=== PATIENT | male | born 1955 | race Two or more races ===

== ENCOUNTER 2019-10-28 17:55 | Inpatient (IN) | payer MEDICAID ==
[~2019-10-28] VITALS: Ht 170.2 cm; Wt 53.5 kg
--- NOTE | 2019-10-28 18:22 | Emergency Room Report ---
History of Present Illness General Chief Complaint: Back Pain-No Injury Source: EMS Present Illness HPI 64-year-old male presents to the emergency department with a complaint of generalized weakness. He also reports intermittent cough for several days. He denies fevers or chills. Patient states he has not seen a primary care doctor in over 5 months. He denies significant past medical history. He reports 4 out of 10 severity bilateral leg aching pains x2 months. Patient denies trauma or fall. He denies back pain. He denies shortness of breath or chest pain. He denies palpitations or dizziness. Allergies: Coded Allergies: No Known Allergies (Unverified , 10/28/19) COVID-19 Screening Contact w/high risk pt: No Experienced COVID-19 symptoms?: No COVID-19 Testing performed CLE[employer]ER [employer]: No Patient History Past Medical History: see triage record Past Surgical History: none Pertinent Family History: none Reviewed Nursing Documentation: PMH: Agreed; PSxH: Agreed Nursing Documentation-PMH Past Medical History: No Stated History Review of Systems All Other Systems: negative except mentioned in HPI Physical Exam Vital Signs Date Time Temp Pulse Resp B/P (MAP) Pulse Ox O2 Delivery O2 Flow Rate FiO2 10/28/19 17:47 87.3 87 18 155/78 (103) 100 Room Air Sp02 EP Interpretation: reviewed, normal General Appearance: alert, GCS 15, non-toxic, mild distress Head: normocephalic, atraumatic Eyes: bilateral eye normal inspection, bilateral eye PERRL ENT: hearing grossly normal, normal pharynx, normal voice Neck: full range of motion Respiratory: speaking full sentences, wheezing - expiratory Cardiovascular #1: regular rate, rhythm, no edema, normal capillary refill Gastrointestinal: normal bowel sounds, non tender, soft Musculoskeletal: back normal, normal range of motion, gait/station normal, non- tender Neurologic: alert, motor strength/tone normal, oriented x3, sensory intact, responsive, speech normal, normal gait Psychiatric: judgement/insight normal Skin: no rash, normal color Lymphatic: no adenopathy Medical Decision Making PA Attestation Dr. Kunz is my supervising Physician whom patient management has been discussed with. Diagnostic Impression: Primary Impression: Acute respiratory disease due to COVID-19 virus Additional Impression: Hyperglycemia ER Course 64-year-old male presents to the emergency department with a complaint of generalized weakness. He also reports intermittent cough for several days. He denies fevers or chills. Patient states he has not seen a primary care doctor in over 5 months. He denies significant past medical history. He reports 4 out of 10 severity bilateral leg aching pains x2 months. Patient denies trauma or fall. He denies back pain. He denies shortness of breath or chest pain. He denies palpitations or dizziness. Ddx considered but are not limited to : COVID-19, MS, MG, guilan barre, CO, drug intoxication, hypovolemia, infection, rhabdomyolysis, ETOH, CVA/TIA, NMS, CHF, Seizures, Cardiac outflow obstruction, QT-prolongation, Brugada, or Anemia just to name a few. Vital signs: are WNL, pt. is afebrile Repeat VS after auscultation of lungs. O2 sat was : 83%. H&PE are most consistent with pt. with decreased breath sounds and expiratory wheezes bilaterally. Pt. has shallow breaths. ORDERS: - CBC: WNL -CMP: glucose of 303 -PT/PTT: WNL -D-Dimer: elevated 1.5 -Troponin: WNL -CRP: 26.8 -ESR: 30 -Lactic Acid: Pending -Blood Cultures: Pending -UA: Pending -EK BPM NSR -BNP: mild elevation 177 -CXR: scattered patchy infiltrates bilaterally. -Rapid COVID-19: POSITIVE ED INTERVENTIONS: - 6L NS oxygen --Lovenox 60mg SubQ -- Levaquin 750mg IV --Decadron 10mg IV DISPOSITION: at this time pt. will be admitted to Dr. Guy for COVID related respiratory distress. Dr. Guy agreed to admit the pt. and to continue pt. care management. Labs Test 10/28/19 18:55 White Blood Count 8.8 K/UL (4.8-10.8) Red Blood Count 5.42 M/UL (4.70-6.10) Hemoglobin 15.2 G/DL (14.2-18.0) Hematocrit 46.0 % (42.0-52.0) Mean Corpuscular Volume 85 FL (80-99) Mean Corpuscular Hemoglobin 28.1 PG (27.0-31.0) Mean Corpuscular Hemoglobin Concent 33.1 G/DL (32.0-36.0) Red Cell Distribution Width 11.4 % (11.6-14.8) Platelet Count 236 K/UL (150-450) Mean Platelet Volume 7.8 FL (6.5-10.1) Neutrophils (%) (Auto) 87.7 % (45.0-75.0) Lymphocytes (%) (Auto) 6.6 % (20.0-45.0) Monocytes (%) (Auto) 5.2 % (1.0-10.0) Eosinophils (%) (Auto) 0.4 % (0.0-3.0) Basophils (%) (Auto) 0.1 % (0.0-2.0) Erythrocyte Sedimentation Rate 30 MM/HR (0-20) Prothrombin Time 10.8 SEC (9.30-11.50) Prothromb Time International Ratio 1.0 (0.9-1.1) Activated Partial Thromboplast Time 26 SEC (23-33) D-Dimer 1.11 mg/L FEU (0.00-0.49) Sodium Level 133 MMOL/L (136-145) Potassium Level 4.3 MMOL/L (3.5-5.1) Chloride Level 96 MMOL/L (98-107) Carbon Dioxide Level 26 MMOL/L (21-32) Anion Gap 11 mmol/L (5-15) Blood Urea Nitrogen 17 mg/dL (7-18) Creatinine 0.9 MG/DL (0.55-1.30) Estimat Glomerular Filtration Rate > 60 mL/min (>60) Glucose Level 303 MG/DL (74-106) Calcium Level 8.0 MG/DL (8.5-10.1) Total Bilirubin 0.7 MG/DL (0.2-1.0) Aspartate Amino Transf (AST/SGOT) 33 U/L (15-37) Alanine Aminotransferase (ALT/SGPT) 34 U/L (12-78) Alkaline Phosphatase 91 U/L (46-116) Troponin I 0.000 ng/mL (0.000-0.056) C-Reactive Protein, Quantitative 26.8 mg/dL (0.00-0.90) Pro-B-Type Natriuretic Peptide 177 pg/mL (0-125) Total Protein 7.9 G/DL (6.4-8.2) Albumin 2.5 G/DL (3.4-5.0) Globulin 5.4 g/dL Albumin/Globulin Ratio 0.5 (1.0-2.7) EKG Diagnostic Results EP Interpretation: Dr. Kunz Rate: normal - 80 bpm Rhythm: NSR ST Segments: no acute changes ASA given to the pt in ED: No PA Scribe Text This Interpretation was scribed by ARIADNE Nath. Chest X-Ray Diagnostic Results Chest X-Ray Diagnostic Results : Chest X-Ray Ordered: Yes # of Views/Limited/Complete: 1 View Indication: Shortness of Breath EP Interpretation: Yes ARIADNE Xray: Interpretation reviewed, by supervising MD, and agrees with findings. Interpretation: no effusion, no pneumothorax, other - Covid like patchy infiltrates Impression: Other - abnormal: suspect COVID-19 Electronically Signed by: Khadra Nath PA-C Last Vital Signs Date Time Temp Pulse Resp B/P (MAP) Pulse Ox O2 Delivery O2 Flow Rate FiO2 10/28/19 17:47 87.3 87 18 155/78 (103) 100 Room Air Disposition: ADMITTED INPATIENT Condition: Serious Khadra Nath Oct 28, 2019 18:22
[2019-10-28 18:40] VITALS: BP 155/78
--- NOTE | 2019-10-28 18:40 | NUR ---
ED Nurse Note: Patient MARYANNE from home c/o 8/10 lower back pain and bilateral foot pain x 3 days. Oral temp 99.3. Patient slightly tachypneic at 28 breaths per minute, breathing non-labored. O2 sat 78% on room air. Patient placed on 6 L NC per verbal order, with O2 sat increase to 94%, Khadra RON aware. 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 20 g IV started in left AC, blood collected and sent to lab, along with rapid covid swab. Patient AxO x 4, no s/s of acute distress.
--- NOTE | 2019-10-28 19:15 | NUR ---
ED Nurse Note: Handoff report given to Didi PRASAD. Patient on 6L NC, O2 sat 94%, breathing even and unlabored. Endorsed plan of care.
[2019-10-28 19:20] LABS: BASOPHILS % (AUTO) 0.1 % (0.0-2.0); EOSINOPHILS % (AUTO) 0.4 % (0.0-3.0); HEMOGLOBIN 15.2 G/DL (14.2-18.0); LYMPHOCYTES % (AUTO) 6.6 % (20.0-45.0); MEAN CORPUSCULAR VOLUME 85 FL (80-99); MONOCYTES % (AUTO) 5.2 % (1.0-10.0); NEUTROPHILS % (AUTO) 87.7 % (45.0-75.0); PLATELET COUNT 236 K/UL (150-450); RED BLOOD COUNT 5.42 M/UL (4.70-6.10); RED CELL DISTRIBUTION WIDTH 11.4 % (11.6-14.8); WHITE BLOOD COUNT 8.8 K/UL (4.8-10.8)
[2019-10-28 19:31] LABS: ANION GAP 11 mmol/L (5-15); BLOOD UREA NITROGEN 17 mg/dL (7-18); CARBON DIOXIDE 26 MMOL/L (21-32); CHLORIDE 96 MMOL/L (98-107); CREATININE 0.9 MG/DL (0.55-1.30); POTASSIUM 4.3 MMOL/L (3.5-5.1); SODIUM 133 MMOL/L (136-145)
[2019-10-28 19:36] LABS: ALANINE AMINOTRANSFERASE 34 U/L (12-78); ALBUMIN 2.5 G/DL (3.4-5.0); ALBUMIN/GLOBULIN RATIO 0.5 (1.0-2.7); ALKALINE PHOSPHATASE 91 U/L (46-116); ASPARTATE AMINO TRANSFERASE 33 U/L (15-37); BILIRUBIN,TOTAL 0.7 MG/DL (0.2-1.0)
[2019-10-28] MEDS ORDERED: dexAMETHasone 10mg/ml Inj IV ONE (20:00)
[2019-10-28] MEDS ORDERED: Enoxaparin 60mg Inj SUBQ ONE (20:00)
[2019-10-28 21:00] VITALS: BP 147/79
--- NOTE | 2019-10-28 21:00 | NUR ---
ED Nurse Note: Pt resting in bed, pt offered food and drink, tolerated well, will continue to monitor
[2019-10-28 21:29] LABS: CREATINE KINASE 72 U/L (26-308)
[2019-10-28 23:00] VITALS: BP 138/72
--- NOTE | 2019-10-28 23:50 | NUR ---
TRANSFER TO FLOOR: Patient transferred to as ordered, per Dr grewal. Report given to OSMAR Anguiano . Belongings and medications given to . Family and or S/O informed of transfer.
[2019-10-29] VITALS: BP 136/77
--- NOTE | 2019-10-29 | NUR ---
NURSE NOTES: Pt arrived via gurney from ED. Got report from Didi PRASAD. Pt in stable condition. Initial assessment done. VSS. Pt denies any pain. Denies any n/v or SOB. Pt is here for Hypoxia/Covid PUI. Pt had rapid swab in ED resulted positive awaiting nasopharyx results. Pt is fully oriented Brazilian speaking. Pt is ambulatory. Pt on 6L NC sating 95%. No skin issues noted. Pt is continent uses urinal. playground monitor placed on pt running NSR. Pt has L AC 20g saline locked and patent. Pt resting in bed comfortably. Bed in low and locked position, call light within reach, bedside table within reach. Continue to monitor. Orders given by Dr. Damon. Orders placed.
[2019-10-29 04:00] VITALS: BP 139/73
[2019-10-29] MEDS: NovoLOG Insulin Flexpen SUBQ SCH ×4 (06:57→17:55)
[2019-10-29 07:17] LABS: HEMATOCRIT 46.4 % (42.0-52.0); HEMOGLOBIN 15.1 G/DL (14.2-18.0); MEAN CORPUSCULAR VOLUME 86 FL (80-99); PLATELET COUNT 249 K/UL (150-450); RED BLOOD COUNT 5.37 M/UL (4.70-6.10); RED CELL DISTRIBUTION WIDTH 11.2 % (11.6-14.8); WHITE BLOOD COUNT 5.5 K/UL (4.8-10.8)
--- NOTE | 2019-10-29 07:20 | NUR ---
HAND-OFF: Report given to Nathalie PRASAD.
--- NOTE | 2019-10-29 07:30 | NUR ---
NURSE NOTES: pt in bed awake and alert x4. Pt on cardiac nurse specialist no signs of cardiac distress on 6L O2. Pt educated on keeping Nc on, to help with breathing. Pt understood and verbalized understanding. Bed locked and in lowest position. Call light within reach, bed side rails up for safety. will continue to monitor pt.
[2019-10-29 07:35] LABS: CHOLESTEROL 147 MG/DL (< 200); HDL CHOLESTEROL 28 MG/DL (40-60); TRIGLYCERIDES 129 MG/DL (30-150)
[2019-10-29 07:36] LABS: PHOSPHORUS 4.4 MG/DL (2.5-4.9)
[2019-10-29 07:55] LABS: ALANINE AMINOTRANSFERASE 40 U/L (12-78); ALBUMIN 2.1 G/DL (3.4-5.0); ALBUMIN/GLOBULIN RATIO 0.4 (1.0-2.7); ALKALINE PHOSPHATASE 85 U/L (46-116); ANION GAP 12 mmol/L (5-15); ASPARTATE AMINO TRANSFERASE 41 U/L (15-37); BILIRUBIN,TOTAL 0.6 MG/DL (0.2-1.0); BLOOD UREA NITROGEN 26 mg/dL (7-18); CALCIUM 8.3 MG/DL (8.5-10.1); CARBON DIOXIDE 24 MMOL/L (21-32); CHLORIDE 95 MMOL/L (98-107); CREATININE 0.8 MG/DL (0.55-1.30); POTASSIUM 4.6 MMOL/L (3.5-5.1); SODIUM 131 MMOL/L (136-145)
--- NOTE | 2019-10-29 08:00 | Consultation ---
DATE OF CONSULTATION: 10/29/2019 ENDOCRINOLOGY CONSULTATION CONSULTING PHYSICIAN: Aram Ochoa MD. REFERRING PHYSICIAN: Nesha Damon MD. REASON FOR CONSULTATION: Diabetes management. HISTORY OF PRESENT ILLNESS: Patient is a 64-year-old male brought in with complaints of generalized weakness, cough. No fever. No chills. Has not seen a primary care doctor for 5 months. No significant past medical history. Also has bilateral neck pain 4/10 without any trauma. Patient's rapid COVID test was positive in the emergency department. Admitted to the floor, started on treatment, and gave a dose of dexamethasone. Glucose was 300. Endocrinology was consulted. PAST MEDICAL HISTORY: Noncontributory. PAST SURGICAL HISTORY: None. FAMILY HISTORY: Noncontributory. SOCIAL HISTORY: No smoking, alcohol, or drug use. REVIEW OF SYSTEMS: As per HPI. LABORATORY DATA: WBC 8, hemoglobin 15, hematocrit 46, platelet count 336. Sodium is 133, potassium 4.2, chloride 96, bicarb 26, BUN 17, creatinine 0.9, glucose of 302, calcium of 8. PHYSICAL EXAMINATION: VITAL SIGNS: Blood pressure 139/73, heart rate 73, temperature 97.5, respiratory rate of 20. Exam was deferred due to COVID infection. DIAGNOSES: 1. Diabetes, out of control. 2. COVID infection. PLAN: 1. Start Levemir 18 units daily. 2. Start NovoLog 6 units before each meal. 3. NovoLog sliding scale before meals and at bedtime. 4. Further adjustment according to blood glucose values. 5. Check hemoglobin A1c. Thank you, Dr. Damon, for the courtesy of this consultation. Aram Ochoa M.D. DR: OSMAR/TITI JOB#: [id number] CC: LINDA
[2019-10-29 08:26] VITALS: BP 130/72
[2019-10-29] MEDS: Levemir Flexpen SUBQ SCH (10:25)
--- NOTE | 2019-10-29 10:27 | NUR ---
CASE MANAGEMENT:INITIAL REVIEW 64YR OLD MALE FROM HOME CC:BACK PAIN WITH NO INJURY SI: HYPOXIA . COVID-19 R/O 87.2 87 18 155/78 100% ON RA D-DIMER 1.11 NA+ 133 CL- 96 BUN 26 BG 303 CA+8.0 ALB 2.5 ESR 30 IS:IV LEVAQUIN X1 LOVENOX SQ X1 IV DECADRON X1 \: 2E TELE UNIT DCP:HOME WHEN STABLE PLAN: COVID-19 + CASE MANAGEMENT: REVIEW 10/29/19 SI: HYPOXIA . COVID-19 + 96.8 85 20 130/72 96% ON RA MG 2.9 LDH 491 NA+ 131 CL- 95 BUN 26 BG 404 CA+8.3 ALB 2.1 HDL CHOL 28 HA1C 10.9 IS:LEVEMIR SQ QS \: 2E TELE UNIT DCP:HOME WHEN STABLE
--- NOTE | 2019-10-29 11:00 | NUR ---
NURSE NOTES: checked blood sugar for pt before given levemir but after pt having breakfast [id number]. Pt received 18units of Levemir. Notified doctor Zoila not further orders were given. Continue insulin as schedule.
[2019-10-29 12:00] VITALS: BP 131/62
--- NOTE | 2019-10-29 14:32 | Cardiac Electrophysiology PN ---
Subjective Subjective [id number] Objective Last 24 Hour Vital Signs Date Time Temp Pulse Resp B/P (MAP) Pulse Ox O2 Delivery O2 Flow Rate FiO2 10/29/19 12:00 69 10/29/19 08:26 96.8 85 20 130/72 (91) 96 10/29/19 08:00 74 10/29/19 04:00 97.5 71 20 139/73 (95) 96 10/29/19 04:00 73 10/29/19 02:09 Nasal Cannula 6.0 10/29/19 00:41 Nasal Cannula 6.0 10/29/19 00:00 75 10/29/19 00:00 97.5 75 20 136/77 (96) 95 10/28/19 23:50 98.9 68 32 138/72 99 Nasal Cannula 6.0 10/28/19 23:00 98.9 68 32 138/72 99 Nasal Cannula 6.0 10/28/19 21:00 98.9 72 30 147/79 99 Nasal Cannula 6.0 10/28/19 18:40 99.3 76 18 155/78 94 Nasal Cannula 6.0 10/28/19 17:47 87.3 87 18 155/78 (103) 100 Room Air Intake and Output 10/28/19 10/29/19 19:00 07:00 Output Total 900 ml Balance -900 ml Output Urine Total 900 ml Laboratory Tests Test 10/28/19 18:55 10/28/19 20:30 10/28/19 22:30 10/29/19 06:14 White Blood Count 8.8 K/UL (4.8-10.8) 5.5 K/UL (4.8-10.8) Red Blood Count 5.42 M/UL (4.70-6.10) 5.37 M/UL (4.70-6.10) Hemoglobin 15.2 G/DL (14.2-18.0) 15.1 G/DL (14.2-18.0) Hematocrit 46.0 % (42.0-52.0) 46.4 % (42.0-52.0) Mean Corpuscular Volume 85 FL (80-99) 86 FL (80-99) Mean Corpuscular Hemoglobin 28.1 PG (27.0-31.0) 28.1 PG (27.0-31.0) Mean Corpuscular Hemoglobin Concent 33.1 G/DL (32.0-36.0) 32.6 G/DL (32.0-36.0) Red Cell Distribution Width 11.4 % (11.6-14.8) L 11.2 % (11.6-14.8) L Platelet Count 236 K/UL (150-450) 249 K/UL (150-450) Mean Platelet Volume 7.8 FL (6.5-10.1) 7.7 FL (6.5-10.1) Neutrophils (%) (Auto) 87.7 % (45.0-75.0) H % (45.0-75.0) Lymphocytes (%) (Auto) 6.6 % (20.0-45.0) L % (20.0-45.0) Monocytes (%) (Auto) 5.2 % (1.0-10.0) % (1.0-10.0) Eosinophils (%) (Auto) 0.4 % (0.0-3.0) % (0.0-3.0) Basophils (%) (Auto) 0.1 % (0.0-2.0) % (0.0-2.0) Erythrocyte Sedimentation Rate 30 MM/HR (0-20) H Prothrombin Time 10.8 SEC (9.30-11.50) Prothromb Time International Ratio 1.0 (0.9-1.1) Activated Partial Thromboplast Time 26 SEC (23-33) D-Dimer 1.11 mg/L FEU (0.00-0.49) H Sodium Level 133 MMOL/L (136-145) L 131 MMOL/L (136-145) L Potassium Level 4.3 MMOL/L (3.5-5.1) 4.6 MMOL/L (3.5-5.1) Chloride Level 96 MMOL/L (98-107) L 95 MMOL/L (98-107) L Carbon Dioxide Level 26 MMOL/L (21-32) 24 MMOL/L (21-32) Anion Gap 11 mmol/L (5-15) 12 mmol/L (5-15) Blood Urea Nitrogen 17 mg/dL (7-18) 26 mg/dL (7-18) H Creatinine 0.9 MG/DL (0.55-1.30) 0.8 MG/DL (0.55-1.30) Estimat Glomerular Filtration Rate > 60 mL/min (>60) > 60 mL/min (>60) Glucose Level 303 MG/DL (74-106) H 404 MG/DL (74-106) #H Calcium Level 8.0 MG/DL (8.5-10.1) L 8.3 MG/DL (8.5-10.1) L Total Bilirubin 0.7 MG/DL (0.2-1.0) 0.6 MG/DL (0.2-1.0) Aspartate Amino Transf (AST/SGOT) 33 U/L (15-37) 41 U/L (15-37) H Alanine Aminotransferase (ALT/SGPT) 34 U/L (12-78) 40 U/L (12-78) Alkaline Phosphatase 91 U/L (46-116) 85 U/L (46-116) Total Creatine Kinase 72 U/L (26-308) Troponin I 0.000 ng/mL (0.000-0.056) C-Reactive Protein, Quantitative 26.8 mg/dL (0.00-0.90) H Pro-B-Type Natriuretic Peptide 177 pg/mL (0-125) H Total Protein 7.9 G/DL (6.4-8.2) 7.6 G/DL (6.4-8.2) Albumin 2.5 G/DL (3.4-5.0) L 2.1 G/DL (3.4-5.0) L Globulin 5.4 g/dL 5.5 g/dL Albumin/Globulin Ratio 0.5 (1.0-2.7) L 0.4 (1.0-2.7) L Lactic Acid Level 2.20 mmol/L (0.4-2.0) H 1.90 mmol/L (0.66-2.22) Differential Total Cells Counted 100 Neutrophils % (Manual) 86 % (45-75) H Lymphocytes % (Manual) 11 % (20-45) L Monocytes % (Manual) 3 % (1-10) Eosinophils % (Manual) 0 % (0-3) Basophils % (Manual) 0 % (0-2) Band Neutrophils 0 % (0-8) Platelet Estimate Adequate Platelet Morphology Normal Red Blood Cell Morphology Normal Hemoglobin A1c 10.9 % (4.3-6.0) H Uric Acid 3.7 MG/DL (2.6-7.2) Phosphorus Level 4.4 MG/DL (2.5-4.9) Magnesium Level 2.9 MG/DL (1.8-2.4) H Lactate Dehydrogenase 491 U/L (81-234) H Triglycerides Level 129 MG/DL (30-150) Cholesterol Level 147 MG/DL (< 200) LDL Cholesterol 93 mg/dL (<100) HDL Cholesterol 28 MG/DL (40-60) L Cholesterol/HDL Ratio 5.3 (3.3-4.4) H Microbiology Date/Time Source Procedure Growth Status 10/28/19 19:15 Nasopharynx SARS-CoV-2 RdRp Gene Assay - Final Complete Mohsen Epps MD Oct 29, 2019 14:32
--- NOTE | 2019-10-29 14:42 | NUR ---
NURSE NOTES: Dr. Foreign Galarza spoke to pt about the benefit and side effect of of Remdesivir, pt verbalized understanding and has agreed to take medication.
--- NOTE | 2019-10-29 15:38 | Diagnostic Imaging Report ---
Indication: Chest pain Technique: One view of the chest Comparison: none Findings: Bilateral interstitial and airspace opacities are noted in a peribronchial vascular distribution. The heart size is normal. The pleural spaces are clear. Impression: Bilateral infiltrates as described. Likely secondary to pneumonia, possibly viral
[2019-10-29 16:00] VITALS: BP 118/68
[2019-10-29] MEDS ORDERED: Loading Dose:Remdesivir 200mg/NS 210ml IV SCH ×2 (17:00)
[2019-10-29] MEDS ORDERED: Remdesivir Fact Sheet MISC SCH (17:00)
[2019-10-29] MEDS: dexAMETHasone 10mg/ml Inj IV SCH (17:47)
--- NOTE | 2019-10-29 19:14 | Consultation ---
DATE OF CONSULTATION: 10/29/2019 INFECTIOUS DISEASES CONSULTATION CONSULTING PHYSICIAN: Stas Garcia MD PRIMARY ATTENDING PHYSICIAN: Nesha Damon MD REASON FOR CONSULTATION: COVID-19 disease. HISTORY OF PRESENT ILLNESS: This is a 64-year-old male admitted last night, complaining of generalized weakness for a couple of days. He had coughing that was dry and shortness of breath. He was hypoxemic and with O2 saturation of 87% at the time of admission, but had no fever. PAST MEDICAL HISTORY: Diabetes mellitus. He was on oral hypoglycemic agent. He has scalp congenital abnormality. ALLERGIES: No known drug allergies. MEDICATIONS: Getting insulin, Tylenol. Got a dose of Levaquin and dexamethasone in the ER. SOCIAL HISTORY: Originally from [facility]. Denies alcohol, drug abuse, or smoking. 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 REVIEW OF SYSTEMS: No fever. No chills. Dry cough, shortness of breath. No nausea. No vomiting. No dysuria. PHYSICAL EXAMINATION: VITAL SIGNS: Temperature is 96.8, pulse 69, blood pressure 130/72. GENERAL APPEARANCE: Seems to have normal rate. HEAD AND NECK: He has abnormality of the left side of the scalp, an area of fullness in the left side of his scalp. HEART: Normal rate. LUNGS: Getting oxygen by nasal cannula. Clear. ABDOMEN: Soft, nontender. EXTREMITIES: He has no edema. NEUROLOGIC: He is awake, alert, and oriented x3. No focal signs. LABORATORY AND DIAGNOSTIC DATA: WBC 5.5, hemoglobin 15.1, hematocrit 46.4, and platelet is 249,000; he had lymphocyte of 6.6 at the time of admission. Sodium 131, potassium 4.6, chloride 95, bicarbonate 24, BUN 26, creatinine 0.8, glucose 404. Hemoglobin A1c 10.1. AST is elevated at 41, ALT 40, alkaline phosphatase is 85. LDH is 491. COVID-19 test was positive. IMPRESSION: COVID-19 pneumonia, hypoxemia, uncontrolled diabetes mellitus, and has hyponatremia. RECOMMENDATION: We will try to start remdesivir for the patient. The patient agrees to get consent for remdesivir treatment. He already was started on dexamethasone. Case was discussed with the pharmacist. At the end of my exam, I thank Dr. Damon for involving me in the care of this patient. Stas Garcia M.D. DR: Tyra JOB#: [id number] CC: LINDA
--- NOTE | 2019-10-29 19:20 | NUR ---
Nurses Notes: RECEIVED INDORSEMENT FROM DAVE PRASAD, PATIENT AXO 4. ABLE TO MAKE NEEDS KNOWN IN LATVIAN. ON O2 VIA NC AT 6L/MIN NOM RESP DISTRESS NOTED. 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 IV IN PLACE & PATENT ON LEFT AC, NO S/S INFILTRATION NOTED. BED IN LOW POSITION, BED ALARM ON, CALL LIGHT WITH IN REACH.
--- NOTE | 2019-10-29 19:32 | NUR ---
HAND-OFF: Report given to Azalia/RN pt in stable conditon, endorsed plan of care.
[2019-10-29 20:00] VITALS: BP 112/67
--- NOTE | 2019-10-29 20:30 | Consultation ---
DATE OF CONSULTATION: 10/29/2019 CARDIOLOGY CONSULTATION CONSULTING PHYSICIAN: Mohsen Epps MD REFERRING PHYSICIAN: Nesha Damon MD REASON FOR CONSULTATION: Shortness of breath, tachycardia, generalized weakness. HISTORY OF PRESENT ILLNESS: The patient is a 64-year-old gentleman, who was brought to the emergency room for generalized weakness. The patient is also having intermittent cough for several days. Denies any fever or chills. The patient has not seen a primary care doctor for 5 months. The patient also has bilateral leg itching and pain for two months as well. The patient was admitted and being ruled out for COVID. It is of note that the patient's rapid COVID test was positive already. REVIEW OF SYSTEMS: Negative other than what was mentioned in history of present illness. PAST MEDICAL HISTORY: As mentioned above. FAMILY HISTORY: Noncontributory. SOCIAL HISTORY: Does not smoke or drink alcohol. PHYSICAL EXAMINATION: VITAL SIGNS: Show blood pressure of 150/72, pulse 70, respirations 18, and temperature 96.8. HEAD AND NECK: Showed no JVD. LUNGS: Clear. CARDIOVASCULAR: Shows regular S1 and S2 with no gallop or murmur. ABDOMEN: Soft. EXTREMITIES: No pitting edema. LABORATORY DATA: Labs show white count 5.5, hematocrit 15, hematocrit 46, and platelet count is 249,000. Sodium 131, potassium 4.3, BUN of 26, creatinine 0.8, and glucose of 404. LDH is 491. ASSESSMENT AND PLAN: 1. Shortness of breath, likely due to the patient's COVID pneumonia. 2. Uncontrolled diabetes. The patient is on insulin per Dr. Ochoa. We will get an echocardiogram to evaluate for ejection fraction and wall motion abnormality as well. Thank you very much for allowing me to participate in the care of this patient. Please do not hesitate to contact me for any questions regarding my evaluation. Mohsen Epps M.D. DR: Heena JOB#: [id number] CC:
[2019-10-30] VITALS (7 sets, daily range): BP systolic 110–137; BP diastolic 57–75
--- NOTE | 2019-10-30 01:14 | History and Physical Report ---
DATE OF ADMISSION: 10/28/2019 HISTORY OF PRESENT ILLNESS: Patient is basically COVID positive. Admitted for COVID positive pneumonia, respiratory insufficiency, hypoxia on 6 L of nasal cannula initially, came in with weakness and patient is also diabetic. Patient is very weak. Patient also reporting intermittent cough for several days. Denies fever or chills. Denies wheezing. Patient also has lower extremity pain for weeks, months. Denies orthopnea. PAST MEDICAL HISTORY: Significant for GERD. PAST SURGICAL HISTORY: None. ALLERGIES: No known allergies. MEDICATIONS: Unknown. FAMILY HISTORY: Noncontributory. SOCIAL HISTORY: Denies history of smoking, alcohol, or illicit drugs. REVIEW OF SYSTEMS: HEENT: Denies headaches. RESPIRATORY: Reports shortness of breath and cough and weakness going on for couple days. CARDIOVASCULAR: Denies chest pain. GASTROINTESTINAL: Denies nausea, vomiting, or diarrhea. EXTREMITIES: Does have bilateral leg pain. CENTRAL NERVOUS SYSTEM: Denies change in speech pattern. Feels very weak. PHYSICAL EXAMINATION: VITAL SIGNS: Temperature 97.5, pulse is 71, blood pressure is 139/73. HEENT: PERRLA. CHEST: Bibasilar rhonchi. CARDIOVASCULAR: Regular rate and rhythm. No murmurs or extra sounds. GASTROINTESTINAL: Soft, nontender, nondistended. No organomegaly. Positive bowel sounds. EXTREMITIES: 1+ edema. He is able to move his extremities. Dorsalis pedis pulses present. NEUROLOGIC: Generalized weakness. LABORATORY DATA: WBC of 8.8, hemoglobin 15.2, platelets of 236. Sodium 131, potassium 4.6, BUN of 26, creatinine of 0.8, glucose of 404. ASSESSMENT AND PLAN: COVID positive pneumonia, hypoxia, respiratory insufficiency, NIDDM, labile sugar, elevated sugar. Patient is on oxygen. I have basically consulted Dr. Stas Garcia, Dr. Aram Ochoa, Dr. Epps, Dr. Ahsan Mitchell for the above-mentioned abnormalities and symptoms of abnormal imaging as well as abnormal laboratories and abnormal symptoms. Antibiotics per Dr. Stas Garcia. Nesha Damon M.D. DR: YANELIS JOB#: [id number] CC:
[2019-10-30] MEDS: NovoLOG Insulin Flexpen SUBQ SCH ×5 (06:29→20:30)
[2019-10-30 07:23] LABS: HEMATOCRIT 46.2 % (42.0-52.0); HEMOGLOBIN 15.1 G/DL (14.2-18.0); MEAN CORPUSCULAR VOLUME 86 FL (80-99); PLATELET COUNT 288 K/UL (150-450); RED CELL DISTRIBUTION WIDTH 11.2 % (11.6-14.8); WHITE BLOOD COUNT 10.3 K/UL (4.8-10.8)
--- NOTE | 2019-10-30 07:32 | NUR ---
HAND-OFF: Report given to OSMAR Mendoza and OSMAR Kolb. Plan of care endorsed.
[2019-10-30 07:56] LABS: ALANINE AMINOTRANSFERASE 36 U/L (12-78); ALBUMIN 2.2 G/DL (3.4-5.0); ALBUMIN/GLOBULIN RATIO 0.4 (1.0-2.7); ALKALINE PHOSPHATASE 84 U/L (46-116); ANION GAP 8 mmol/L (5-15); ASPARTATE AMINO TRANSFERASE 34 U/L (15-37); BILIRUBIN,TOTAL 0.3 MG/DL (0.2-1.0); BLOOD UREA NITROGEN 31 mg/dL (7-18); CARBON DIOXIDE 28 MMOL/L (21-32); CHLORIDE 101 MMOL/L (98-107); CREATININE 0.8 MG/DL (0.55-1.30); POTASSIUM 4.7 MMOL/L (3.5-5.1); SODIUM 136 MMOL/L (136-145)
--- NOTE | 2019-10-30 08:00 | NUR ---
NURSE NOTES: Patient stable AOx4 with no complaints at this time. No s/sx of pain or distress. RR even and unlabored on RA. Cranial abnormality noted. Patient had formed BM normal in apperance. Side rails upx2, call light within reach, bed low and locked. Will continue to monitor.
--- NOTE | 2019-10-30 09:08 | Infectious Diseases Prog Note ---
Assessment/Plan Assessment/Plan IMPRESSION: COVID-19 pneumonia, Hypoxemia, Uncontrolled diabetes mellitus, Hyponatremia. RECOMMENDATION: Continue remdesivir & dexamethasone. F/u CMP Case was discussed with the pha Subjective ROS Limited/Unobtainable: Yes Constitutional: Reports: fever, other - mild Respiratory: Reports: shortness of breath Allergies: Coded Allergies: No Known Allergies (Unverified , 10/28/19) Objective Last 24 Hour Vital Signs Date Time Temp Pulse Resp B/P (MAP) Pulse Ox O2 Delivery O2 Flow Rate FiO2 10/30/19 08:00 98.7 58 20 124/63 (83) 98 10/30/19 04:00 74 10/30/19 04:00 98.3 62 20 116/64 (81) 97 10/30/19 00:00 97.7 67 19 123/69 (87) 98 10/30/19 00:00 67 10/29/19 21:00 Nasal Cannula 2.0 10/29/19 20:00 67 10/29/19 20:00 98.6 66 19 112/67 (82) 98 10/29/19 16:00 98.1 68 19 118/68 (85) 98 10/29/19 16:00 64 10/29/19 12:00 69 10/29/19 12:00 98.2 80 20 131/62 (85) 97 Height (Feet): 5 Height (Inches): 7.00 Weight (Pounds): 145 General Appearance: no acute distress HEENT: mucous membranes moist Respiratory/Chest: other - oxygen by nasal cannula Cardiovascular: normal rate Abdomen: soft, non tender Extremities: no edema Neurologic/Psychiatric: alert, responsive Microbiology Date/Time Source Procedure Growth Status 10/28/19 20:50 Blood Blood Culture - Preliminary NO GROWTH AFTER 24 HOURS Resulted 10/28/19 20:35 Blood Blood Culture - Preliminary NO GROWTH AFTER 24 HOURS Resulted 10/28/19 20:50 Nasopharynx Coronavirus COVID-19 PCR ([facility]AB[facility]) - Final Complete 10/28/19 19:15 Nasopharynx SARS-CoV-2 RdRp Gene Assay - Final Complete Laboratory Tests Test 10/30/19 05:40 White Blood Count 10.3 K/UL (4.8-10.8) # Red Blood Count 5.40 M/UL (4.70-6.10) Hemoglobin 15.1 G/DL (14.2-18.0) Hematocrit 46.2 % (42.0-52.0) Mean Corpuscular Volume 86 FL (80-99) Mean Corpuscular Hemoglobin 28.1 PG (27.0-31.0) Mean Corpuscular Hemoglobin Concent 32.8 G/DL (32.0-36.0) Red Cell Distribution Width 11.2 % (11.6-14.8) L Platelet Count 288 K/UL (150-450) Mean Platelet Volume 7.0 FL (6.5-10.1) Neutrophils (%) (Auto) % (45.0-75.0) Lymphocytes (%) (Auto) % (20.0-45.0) Monocytes (%) (Auto) % (1.0-10.0) Eosinophils (%) (Auto) % (0.0-3.0) Basophils (%) (Auto) % (0.0-2.0) Neutrophils % (Manual) Pending Lymphocytes % (Manual) Pending Platelet Estimate Pending Platelet Morphology Pending Sodium Level 136 MMOL/L (136-145) Potassium Level 4.7 MMOL/L (3.5-5.1) Chloride Level 101 MMOL/L (98-107) Carbon Dioxide Level 28 MMOL/L (21-32) Anion Gap 8 mmol/L (5-15) Blood Urea Nitrogen 31 mg/dL (7-18) H Creatinine 0.8 MG/DL (0.55-1.30) Estimat Glomerular Filtration Rate > 60 mL/min (>60) Glucose Level 368 MG/DL (74-106) H Calcium Level 8.0 MG/DL (8.5-10.1) L Total Bilirubin 0.3 MG/DL (0.2-1.0) Direct Bilirubin Pending Aspartate Amino Transf (AST/SGOT) 34 U/L (15-37) Alanine Aminotransferase (ALT/SGPT) 36 U/L (12-78) Alkaline Phosphatase 84 U/L (46-116) Troponin I 0.000 ng/mL (0.000-0.056) Total Protein 7.3 G/DL (6.4-8.2) Albumin 2.2 G/DL (3.4-5.0) L Globulin 5.1 g/dL Albumin/Globulin Ratio 0.4 (1.0-2.7) L Thyroid Stimulating Hormone (TSH) 1.198 uiU/mL (0.358-3.740) Current Medications Medications (Trade) Dose Ordered Sig/Roman Route PRN Reason Start Time Stop Time Status Last Admin Dose Admin Acetaminophen (Tylenol) 500 mg Q4H PRN ORAL Mild Pain (Pain Scale 1-3) 10/29/19 00:45 11/28/19 00:44 Dexamethasone Sodium Phosphate (Decadron 10mg/ ml Inj) 6 mg Q24H IV 10/29/19 17:00 01/27/20 16:59 10/29/19 17:47 Dextrose (Dextrose 50%) 25 ml Q30M PRN IV Hypoglycemia 10/29/19 06:45 01/27/20 06:44 Dextrose (Dextrose 50%) 50 ml Q30M PRN IV Hypoglycemia 10/29/19 06:45 01/27/20 06:44 Insulin Aspart (NovoLOG) 6 units NOVOTIAC SUBQ 10/29/19 07:00 01/27/20 06:59 10/30/19 06:29 Insulin Detemir (Levemir) 18 units DAILY SUBQ 10/29/19 09:00 01/27/20 08:59 10/29/19 10:25 Remdesivir 100 mg/ Sodium Chloride 250 ml @ 250 mls/hr Q24H IV 10/30/19 17:00 11/02/19 17:59 Stas Garcia MD Oct 30, 2019 09:08
[2019-10-30] MEDS: Levemir Flexpen SUBQ SCH (09:58)
[2019-10-30] MEDS: IV Preparation Fee IV SCH ×2 (12:08→17:00)
--- NOTE | 2019-10-30 12:49 | NUR ---
NURSE NOTES: Dr. Ochoa called and reported patients BS. Message left and mentioned patient has not been started on sliding scale insulin.
--- NOTE | 2019-10-30 12:51 | NUR ---
CASE MANAGEMENT: REVIEW 10/30/19 SI: HYPOXIA . COVID-19 + 98.7 58 20 124/63 98% ON 2L NC BUN 31 BG 368 WBG 485 CA+ 8.0 ALB 2.2 IS:IV DECADRON QD IV REMDESIVIR QD X4 BAGS LEVEMIR SQ QS \: 2E TELE UNIT DCP:HOME WHEN STABLE PLAN: DC ONCE COMPLETE REMDESIVIR WEAN OFF O2 Addendum: 10/30/19 at 1256 by EJSSICA BHARDWAJ LVN + BLOOD CX - INCLUDE IV VANCO TO POC
--- NOTE | 2019-10-30 12:54 | NUR ---
NURSE NOTES: Reported positive blood cultures to Dr. Tonja Garcia. Order received for [facility] pharmacy to dose.
[2019-10-30] MEDS: Vancomycin 500mg/D5W 110ml IVPB SCH ×2 (15:28)
--- NOTE | 2019-10-30 16:37 | Cardiac Electrophysiology PN ---
Assessment/Plan Assessment/Plan 1. Shortness of breath due to the patient's COVID pneumonia. S/P Remdesivir treatment. EF 60% 2. Uncontrolled diabetes. The patient is on insulin per Dr. Ochoa. MARIKA RN Subjective Subjective Got Remdesivir for Covid. In isolation Objective Last 24 Hour Vital Signs Date Time Temp Pulse Resp B/P (MAP) Pulse Ox O2 Delivery O2 Flow Rate FiO2 10/30/19 12:00 97.8 81 17 120/57 (78) 97 10/30/19 12:00 61 10/30/19 09:00 Nasal Cannula 4.0 10/30/19 08:00 60 10/30/19 08:00 98.7 58 20 124/63 (83) 98 10/30/19 04:00 74 10/30/19 04:00 98.3 62 20 116/64 (81) 97 10/30/19 00:00 97.7 67 19 123/69 (87) 98 10/30/19 00:00 67 10/29/19 21:00 Nasal Cannula 2.0 10/29/19 20:00 67 10/29/19 20:00 98.6 66 19 112/67 (82) 98 Intake and Output 10/29/19 10/30/19 19:00 07:00 Intake Total 140 ml 550 ml Output Total 1400 ml 1200 ml Balance -1260 ml -650 ml Intake Oral 140 ml 550 ml Output Urine Total 1400 ml 1200 ml # Voids 3 3 Laboratory Tests Test 10/30/19 05:40 10/30/19 10:08 White Blood Count 10.3 K/UL (4.8-10.8) # Red Blood Count 5.40 M/UL (4.70-6.10) Hemoglobin 15.1 G/DL (14.2-18.0) Hematocrit 46.2 % (42.0-52.0) Mean Corpuscular Volume 86 FL (80-99) Mean Corpuscular Hemoglobin 28.1 PG (27.0-31.0) Mean Corpuscular Hemoglobin Concent 32.8 G/DL (32.0-36.0) Red Cell Distribution Width 11.2 % (11.6-14.8) L Platelet Count 288 K/UL (150-450) Mean Platelet Volume 7.0 FL (6.5-10.1) Neutrophils (%) (Auto) % (45.0-75.0) Lymphocytes (%) (Auto) % (20.0-45.0) Monocytes (%) (Auto) % (1.0-10.0) Eosinophils (%) (Auto) % (0.0-3.0) Basophils (%) (Auto) % (0.0-2.0) Differential Total Cells Counted 100 Neutrophils % (Manual) 90 % (45-75) H Lymphocytes % (Manual) 6 % (20-45) L Monocytes % (Manual) 4 % (1-10) Eosinophils % (Manual) 0 % (0-3) Basophils % (Manual) 0 % (0-2) Band Neutrophils 0 % (0-8) Platelet Estimate Adequate Platelet Morphology Normal Red Blood Cell Morphology Normal Sodium Level 136 MMOL/L (136-145) Potassium Level 4.7 MMOL/L (3.5-5.1) Chloride Level 101 MMOL/L (98-107) Carbon Dioxide Level 28 MMOL/L (21-32) Anion Gap 8 mmol/L (5-15) Blood Urea Nitrogen 31 mg/dL (7-18) H Creatinine 0.8 MG/DL (0.55-1.30) Estimat Glomerular Filtration Rate > 60 mL/min (>60) Glucose Level 368 MG/DL (74-106) H Calcium Level 8.0 MG/DL (8.5-10.1) L Total Bilirubin 0.3 MG/DL (0.2-1.0) Direct Bilirubin 0.1 MG/DL (0.0-0.3) Aspartate Amino Transf (AST/SGOT) 34 U/L (15-37) Alanine Aminotransferase (ALT/SGPT) 36 U/L (12-78) Alkaline Phosphatase 84 U/L (46-116) Troponin I 0.000 ng/mL (0.000-0.056) Total Protein 7.3 G/DL (6.4-8.2) Albumin 2.2 G/DL (3.4-5.0) L Globulin 5.1 g/dL Albumin/Globulin Ratio 0.4 (1.0-2.7) L Thyroid Stimulating Hormone (TSH) 1.198 uiU/mL (0.358-3.740) POC Whole Blood Glucose 485 MG/DL (74-106) H Microbiology Date/Time Source Procedure Growth Status 10/28/19 20:50 Blood Blood Culture - Preliminary Resulted 10/28/19 20:35 Blood Blood Culture - Preliminary NO GROWTH AFTER 24 HOURS Resulted 10/28/19 20:50 Nasopharynx Coronavirus COVID-19 PCR ([facility]ABIHA) - Final Complete 10/28/19 19:15 Nasopharynx SARS-CoV-2 RdRp Gene Assay - Final Complete Objective HEAD AND NECK: No JVD. LUNGS: Clear. CARDIOVASCULAR: Regular S1 and S2 with no gallop or murmur. ABDOMEN: Soft. EXTREMITIES: No pitting edema. Mohsen Epps MD Oct 30, 2019 16:37
[2019-10-30] MEDS: dexAMETHasone 10mg/ml Inj IV SCH (16:58)
[2019-10-30] MEDS: Maintenance Dose:Remdesivir 100mg/NS 230ml x 4 Doses IV SCH ×2 (17:00)
--- NOTE | 2019-10-30 18:03 | General Progress Note ---
Assessment/Plan Problem List: (1) Acute respiratory disease due to COVID-19 virus ICD Codes: U07.1 - COVID-19; J06.9 - Acute upper respiratory infection, unspecified SNOMED: 994749070, 097881199, 977082557 (2) Hyperglycemia ICD Codes: R73.9 - Hyperglycemia, unspecified; J06.9 - Acute upper respiratory infection, unspecified SNOMED: 82472478, 210300222, [id number] Assessment/Plan: increase Levemir to 18 units bid increase Novolog to 14 units ac tid continue Novolog sliding scale ac / hs Subjective ROS Limited/Unobtainable: Yes Allergies: Coded Allergies: No Known Allergies (Unverified , 10/28/19) Subjective events noted glucose values are elevated Item Value Date Time Bedside Blood Glucose 368 mg/dl H 10/30/19 1708 Bedside Blood Glucose 382 mg/dl H 10/30/19 1209 Bedside Blood Glucose 354 mg/dl H 10/30/19 0958 Bedside Blood Glucose 354 mg/dl H 10/30/19 0630 Bedside Blood Glucose 422 mg/dl H 10/29/19 1755 Bedside Blood Glucose 472 mg/dl H 10/29/19 1234 Objective Last 24 Hour Vital Signs Date Time Temp Pulse Resp B/P (MAP) Pulse Ox O2 Delivery O2 Flow Rate FiO2 10/30/19 16:00 62 10/30/19 16:00 97.7 71 18 137/75 (95) 98 10/30/19 12:00 97.8 81 17 120/57 (78) 97 10/30/19 12:00 61 10/30/19 09:00 Nasal Cannula 4.0 10/30/19 08:00 60 10/30/19 08:00 98.7 58 20 124/63 (83) 98 10/30/19 04:00 74 10/30/19 04:00 98.3 62 20 116/64 (81) 97 10/30/19 00:00 97.7 67 19 123/69 (87) 98 10/30/19 00:00 67 10/29/19 21:00 Nasal Cannula 2.0 10/29/19 20:00 67 10/29/19 20:00 98.6 66 19 112/67 (82) 98 Intake and Output 10/29/19 10/30/19 19:00 07:00 Intake Total 140 ml 550 ml Output Total 1400 ml 1200 ml Balance -1260 ml -650 ml Intake Oral 140 ml 550 ml Output Urine Total 1400 ml 1200 ml # Voids 3 3 Laboratory Tests 10/29/19 20:35: POC Whole Blood Glucose 371H 10/30/19 05:11: POC Whole Blood Glucose 354H 10/30/19 05:40: White Blood Count 10.3#, Red Blood Count 5.40, Hemoglobin 15.1, Hematocrit 46.2 , Mean Corpuscular Volume 86, Mean Corpuscular Hemoglobin 28.1, Mean Corpuscular Hemoglobin Concent 32.8, Red Cell Distribution Width 11.2L, Platelet Count 288, Mean Platelet Volume 7.0, Neutrophils (%) (Auto) , Lymphocytes (%) (Auto) , Monocytes (%) (Auto) , Eosinophils (%) (Auto) , Basophils (%) (Auto) , Differential Total Cells Counted 100, Neutrophils % ( Manual) 90H, Lymphocytes % (Manual) 6L, Monocytes % (Manual) 4, Eosinophils % ( Manual) 0, Basophils % (Manual) 0, Band Neutrophils 0, Platelet Estimate Adequate, Platelet Morphology Normal, Red Blood Cell Morphology Normal, Sodium Level 136, Potassium Level 4.7, Chloride Level 101, Carbon Dioxide Level 28, Anion Gap 8, Blood Urea Nitrogen 31H, Creatinine 0.8, Estimat Glomerular Filtration Rate > 60, Glucose Level 368H, Calcium Level 8.0L, Total Bilirubin 0.3, Direct Bilirubin 0.1, Aspartate Amino Transf (AST/SGOT) 34, Alanine Aminotransferase (ALT/SGPT) 36, Alkaline Phosphatase 84, Troponin I 0.000, Total Protein 7.3, Albumin 2.2L, Globulin 5.1, Albumin/Globulin Ratio 0.4L, Thyroid Stimulating Hormone (TSH) 1.198 10/30/19 10:08: POC Whole Blood Glucose 485H Height (Feet): 5 Height (Inches): 7.00 Weight (Pounds): 145 Objective Current Medications Medications (Trade) Dose Ordered Sig/Roman Route PRN Reason Start Time Stop Time Status Last Admin Dose Admin Acetaminophen (Tylenol) 500 mg Q4H PRN ORAL Mild Pain (Pain Scale 1-3) 10/29/19 00:45 11/28/19 00:44 Dexamethasone Sodium Phosphate (Decadron 10mg/ ml Inj) 6 mg Q24H IV 10/29/19 17:00 01/27/20 16:59 10/30/19 16:58 Dextrose (Dextrose 50%) 25 ml Q30M PRN IV Hypoglycemia 10/29/19 06:45 01/27/20 06:44 Dextrose (Dextrose 50%) 50 ml Q30M PRN IV Hypoglycemia 10/29/19 06:45 01/27/20 06:44 Insulin Aspart (NovoLOG) BEFORE MEALS AND HS SUBQ 10/30/19 16:30 01/28/20 16:29 10/30/19 17:08 Insulin Aspart (NovoLOG) 6 units NOVOTIAC SUBQ 10/29/19 07:00 01/27/20 06:59 10/30/19 17:03 Insulin Detemir (Levemir) 18 units DAILY SUBQ 10/29/19 09:00 01/27/20 08:59 10/30/19 09:58 Remdesivir 100 mg/ Sodium Chloride 250 ml @ 250 mls/hr Q24H IV 10/30/19 17:00 11/02/19 17:59 10/30/19 17:00 Vancomycin HCl (Vanco pharmacy to dose) 1 ea DAILY PRN MISC Per rx protocol 10/30/19 13:00 11/29/19 12:59 Vancomycin HCl 500 mg/Dextrose 110 ml @ 110 mls/hr Q12HR@0300,1500 IVPB 10/30/19 15:00 11/04/19 14:59 10/30/19 15:28 Aram Ochoa MD Oct 30, 2019 18:03
--- NOTE | 2019-10-30 19:20 | NUR ---
Nurse Notes: Received indorsement from OSMAR Mendoza. Patient alert, oriented x4, able to make needs known. No resp distress noted. Continue on cardiac monitoring with normal sinus rhythm. IV in place on left AC and patent, no s/s of infiltration noted. Patient is on O2 4L/min via NC & sating at 95%. Bed in low position, bed alarm on, side rails up x2.
--- NOTE | 2019-10-30 19:27 | NUR ---
HAND-OFF: Report given to Azalia RN.Patient stable. Plan of care endorsed.
[2019-10-30] MEDS ORDERED: Levemir Flexpen SUBQ SCH (19:30)
--- NOTE | 2019-10-30 20:51 | General Progress Note ---
Assessment/Plan Problem List: (1) Hyperglycemia ICD Codes: R73.9 - Hyperglycemia, unspecified; J06.9 - Acute upper respiratory infection, unspecified SNOMED: 47057329, 476822686, 214571817 (2) Acute respiratory disease due to COVID-19 virus ICD Codes: U07.1 - COVID-19; J06.9 - Acute upper respiratory infection, unspecified SNOMED: 014796033, 076557511, 705586563 Status: progressing Assessment/Plan: niddm s/p hypoxia resps insuff dm check sugar afebrile Subjective ROS Limited/Unobtainable: Yes Allergies: Coded Allergies: No Known Allergies (Unverified , 10/28/19) Objective Last 24 Hour Vital Signs Date Time Temp Pulse Resp B/P (MAP) Pulse Ox O2 Delivery O2 Flow Rate FiO2 10/30/19 16:00 62 10/30/19 16:00 97.7 71 18 137/75 (95) 98 10/30/19 12:00 97.8 81 17 120/57 (78) 97 10/30/19 12:00 61 10/30/19 09:00 Nasal Cannula 4.0 10/30/19 08:00 60 10/30/19 08:00 98.7 58 20 124/63 (83) 98 10/30/19 04:00 74 10/30/19 04:00 98.3 62 20 116/64 (81) 97 10/30/19 00:00 97.7 67 19 123/69 (87) 98 10/30/19 00:00 67 10/29/19 21:00 Nasal Cannula 2.0 Intake and Output 10/29/19 10/30/19 19:00 07:00 Intake Total 140 ml 550 ml Output Total 1400 ml 1200 ml Balance -1260 ml -650 ml Intake Oral 140 ml 550 ml Output Urine Total 1400 ml 1200 ml # Voids 3 3 Laboratory Tests 10/30/19 05:11: POC Whole Blood Glucose 354H 10/30/19 05:40: White Blood Count 10.3#, Red Blood Count 5.40, Hemoglobin 15.1, Hematocrit 46.2 , Mean Corpuscular Volume 86, Mean Corpuscular Hemoglobin 28.1, Mean Corpuscular Hemoglobin Concent 32.8, Red Cell Distribution Width 11.2L, Platelet Count 288, Mean Platelet Volume 7.0, Neutrophils (%) (Auto) , Lymphocytes (%) (Auto) , Monocytes (%) (Auto) , Eosinophils (%) (Auto) , Basophils (%) (Auto) , Differential Total Cells Counted 100, Neutrophils % ( Manual) 90H, Lymphocytes % (Manual) 6L, Monocytes % (Manual) 4, Eosinophils % ( Manual) 0, Basophils % (Manual) 0, Band Neutrophils 0, Platelet Estimate Adequate, Platelet Morphology Normal, Red Blood Cell Morphology Normal, Sodium Level 136, Potassium Level 4.7, Chloride Level 101, Carbon Dioxide Level 28, Anion Gap 8, Blood Urea Nitrogen 31H, Creatinine 0.8, Estimat Glomerular Filtration Rate > 60, Glucose Level 368H, Calcium Level 8.0L, Total Bilirubin 0.3, Direct Bilirubin 0.1, Aspartate Amino Transf (AST/SGOT) 34, Alanine Aminotransferase (ALT/SGPT) 36, Alkaline Phosphatase 84, Troponin I 0.000, Total Protein 7.3, Albumin 2.2L, Globulin 5.1, Albumin/Globulin Ratio 0.4L, Thyroid Stimulating Hormone (TSH) 1.198 10/30/19 10:08: POC Whole Blood Glucose 485H 10/30/19 20:03: POC Whole Blood Glucose 220H Height (Feet): 5 Height (Inches): 7.00 Weight (Pounds): 145 Nesha Damon MD Oct 30, 2019 20:51
[2019-10-31] VITALS: BP 116/68
[2019-10-31] MEDS: Vancomycin 500mg/D5W 110ml IVPB SCH ×2 (02:25)
[2019-10-31 04:00] VITALS: BP 126/64
[2019-10-31 06:03] LABS: HEMOGLOBIN 15.4 G/DL (14.2-18.0); MEAN CORPUSCULAR VOLUME 85 FL (80-99); PLATELET COUNT 298 K/UL (150-450); RED BLOOD COUNT 5.41 M/UL (4.70-6.10); RED CELL DISTRIBUTION WIDTH 10.9 % (11.6-14.8); WHITE BLOOD COUNT 9.8 K/UL (4.8-10.8)
[2019-10-31] MEDS: NovoLOG Insulin Flexpen SUBQ SCH ×7 (06:23→20:20)
--- NOTE | 2019-10-31 06:37 | General Progress Note ---
Assessment/Plan Problem List: (1) Acute respiratory disease due to COVID-19 virus ICD Codes: U07.1 - COVID-19; J06.9 - Acute upper respiratory infection, unspecified SNOMED: 452081431, 385735927, 127167617 (2) Hyperglycemia ICD Codes: R73.9 - Hyperglycemia, unspecified; J06.9 - Acute upper respiratory infection, unspecified SNOMED: 87606241, 309017806, 817584421 Status: progressing Assessment/Plan: reduce Levemir 18 to 15 units bid increase Novolog to 14 units ac tid continue Novolog sliding scale ac / hs Subjective Allergies: Coded Allergies: No Known Allergies (Unverified , 10/28/19) Subjective events noted glucose values improved Item Value Date Time Bedside Blood Glucose 105 mg/dl 10/31/19 0624 Bedside Blood Glucose 220 mg/dl H 10/30/19 2100 Bedside Blood Glucose 368 mg/dl H 10/30/19 1708 Bedside Blood Glucose 382 mg/dl H 10/30/19 1209 Bedside Blood Glucose 354 mg/dl H 10/30/19 0958 Bedside Blood Glucose 354 mg/dl H 10/30/19 0630 Objective Last 24 Hour Vital Signs Date Time Temp Pulse Resp B/P (MAP) Pulse Ox O2 Delivery O2 Flow Rate FiO2 10/31/19 04:00 98.4 69 19 126/64 (84) 95 10/31/19 04:00 56 10/31/19 00:00 58 10/31/19 00:00 98.5 64 20 116/68 (84) 94 10/30/19 21:00 Nasal Cannula 4.0 10/30/19 20:00 98.3 62 20 110/63 (79) 95 10/30/19 20:00 61 10/30/19 16:00 62 10/30/19 16:00 97.7 71 18 137/75 (95) 98 10/30/19 12:00 97.8 81 17 120/57 (78) 97 10/30/19 12:00 61 10/30/19 09:00 Nasal Cannula 4.0 10/30/19 08:00 60 10/30/19 08:00 98.7 58 20 124/63 (83) 98 Intake and Output 10/30/19 10/31/19 19:00 07:00 Intake Total 120 ml 300 ml Output Total 1200 ml 1000 ml Balance -1080 ml -700 ml Intake Oral 120 ml 300 ml Output Urine Total 1200 ml 1000 ml # Voids 3 2 Laboratory Tests 10/30/19 10:08: POC Whole Blood Glucose 485H 10/30/19 20:03: POC Whole Blood Glucose 220H 10/31/19 05:44: White Blood Count 9.8, Red Blood Count 5.41, Hemoglobin 15.4, Hematocrit 46.0, Mean Corpuscular Volume 85, Mean Corpuscular Hemoglobin 28.4, Mean Corpuscular Hemoglobin Concent 33.5, Red Cell Distribution Width 10.9L, Platelet Count 298, Mean Platelet Volume 7.0, Neutrophils (%) (Auto) , Lymphocytes (%) (Auto) , Monocytes (%) (Auto) , Eosinophils (%) (Auto) , Basophils (%) (Auto) , Neutrophils % (Manual) [Pending], Lymphocytes % (Manual) [Pending], Platelet Estimate [Pending], Platelet Morphology [Pending], Sodium Level [Pending], Potassium Level [Pending], Chloride Level [Pending], Carbon Dioxide Level [ Pending], Blood Urea Nitrogen [Pending], Creatinine [Pending], Estimat Glomerular Filtration Rate [Pending], Glucose Level [Pending], Calcium Level [ Pending], Total Bilirubin [Pending], Direct Bilirubin [Pending], Aspartate Amino Transf (AST/SGOT) [Pending], Alanine Aminotransferase (ALT/SGPT) [Pending] , Alkaline Phosphatase [Pending], Total Protein [Pending], Albumin [Pending], Globulin [Pending] Height (Feet): 5 Height (Inches): 7.00 Weight (Pounds): 145 Objective Current Medications Medications (Trade) Dose Ordered Sig/Roman Route PRN Reason Start Time Stop Time Status Last Admin Dose Admin Acetaminophen (Tylenol) 500 mg Q4H PRN ORAL Mild Pain (Pain Scale 1-3) 10/29/19 00:45 11/28/19 00:44 Dexamethasone Sodium Phosphate (Decadron 10mg/ ml Inj) 6 mg Q24H IV 10/29/19 17:00 01/27/20 16:59 10/30/19 16:58 Dextrose (Dextrose 50%) 25 ml Q30M PRN IV Hypoglycemia 10/29/19 06:45 01/27/20 06:44 Dextrose (Dextrose 50%) 50 ml Q30M PRN IV Hypoglycemia 10/29/19 06:45 01/27/20 06:44 Insulin Aspart (NovoLOG) BEFORE MEALS AND HS SUBQ 10/30/19 16:30 01/28/20 16:29 10/30/19 20:30 Insulin Aspart (NovoLOG) 14 units NOVOTIAC SUBQ 10/31/19 06:30 01/27/20 06:59 Insulin Detemir (Levemir) 18 units Q12HR SUBQ 10/30/19 19:30 01/28/20 19:29 10/30/19 20:32 Remdesivir 100 mg/ Sodium Chloride 250 ml @ 250 mls/hr Q24H IV 10/30/19 17:00 11/02/19 17:59 10/30/19 17:00 Vancomycin HCl (Vanco pharmacy to dose) 1 ea DAILY PRN MISC Per rx protocol 10/30/19 13:00 11/29/19 12:59 Vancomycin HCl 500 mg/Dextrose 110 ml @ 110 mls/hr Q12HR@0300,1500 IVPB 10/30/19 15:00 11/04/19 14:59 10/31/19 02:25 Aram Ochoa MD Oct 31, 2019 06:37
--- NOTE | 2019-10-31 06:42 | NUR ---
Nurses Notes: Patient's 0630 dose of NovoLog held. Blood glucose 105 and patient is asymptomatic.
[2019-10-31 06:56] LABS: ALANINE AMINOTRANSFERASE 38 U/L (12-78); ALBUMIN/GLOBULIN RATIO 0.4 (1.0-2.7); ALKALINE PHOSPHATASE 81 U/L (46-116); ANION GAP 6 mmol/L (5-15); ASPARTATE AMINO TRANSFERASE 30 U/L (15-37); BILIRUBIN,DIRECT 0.1 MG/DL (0.0-0.3); BILIRUBIN,TOTAL 0.4 MG/DL (0.2-1.0); BLOOD UREA NITROGEN 21 mg/dL (7-18); CALCIUM 8.2 MG/DL (8.5-10.1); CARBON DIOXIDE 29 MMOL/L (21-32); CHLORIDE 104 MMOL/L (98-107); CREATININE 0.7 MG/DL (0.55-1.30); POTASSIUM 3.9 MMOL/L (3.5-5.1); SODIUM 139 MMOL/L (136-145)
--- NOTE | 2019-10-31 07:19 | NUR ---
HAND-OFF: Report given to OSMAR Mendoza and SOMAR Kolb. Plan of care endorsed.
--- NOTE | 2019-10-31 07:48 | NUR ---
NURSE NOTES: Received report from Aubree PRASAD, pt in bed sleeping. No sign of distress or SOB noted. Bed in lowest position, yellow socks and gown on. Call light within reach. Addendum: 10/31/19 at 0751 by Kennedi Moran RN kevin Vieyra Rn, RN
[2019-10-31 07:59] VITALS: BP 124/65
--- NOTE | 2019-10-31 09:39 | NUR ---
RD ASSESSMENT & RECOMMENDATIONS SEE CARE ACTIVITY FOR COMPLETE ASSESSMENT DAILY ESTIMATED NEEDS: Needs based on Pulmonary, DM 66kg 25-30 kcals/kg 8158-6458 total kcals 1-1.5 g protein/kg 66-99 g total protein 25-30 mL/kg 3810-5809 total fluid mLs NUTRITION DIAGNOSIS: Altered nutrition related lab values r/t diabetes as evidenced by A1C 10.9, BG on adm 300-400's. CURRENT DIET: Soft puree PO DIET RECOMMENDATIONS--->>> CCHO LOW / texture per [employer] ADDITIONAL RECOMMENDATIONS: 1) Obtain a calibrated bed scale wt as able 2) Diet recs as above for glycemic control 3) Add snacks in b/w meals, 1 carb/ high pro as needed -> Encourage HS snack to prevent am hypoglycemia 4) Consider [employer] eval for texture upgrade
[2019-10-31] MEDS: Levemir Flexpen SUBQ SCH ×2 (09:50→20:27)
--- NOTE | 2019-10-31 10:42 | Infectious Diseases Prog Note ---
Assessment/Plan Assessment/Plan IMPRESSION: COVID-19 pneumonia, Hypoxemia, Uncontrolled diabetes mellitus, Hyponatremia. RECOMMENDATION: Continue remdesivir & dexamethasone. F/u CMP Subjective ROS Limited/Unobtainable: Yes Constitutional: Denies: fever Respiratory: Reports: productive cough Gastrointestinal/Abdominal: Reports: no symptoms Allergies: Coded Allergies: No Known Allergies (Unverified , 10/28/19) Objective Last 24 Hour Vital Signs Date Time Temp Pulse Resp B/P (MAP) Pulse Ox O2 Delivery O2 Flow Rate FiO2 10/31/19 08:00 59 10/31/19 07:59 98.2 97 17 124/65 (84) 96 10/31/19 04:00 98.4 69 19 126/64 (84) 95 10/31/19 04:00 56 10/31/19 00:00 58 10/31/19 00:00 98.5 64 20 116/68 (84) 94 10/30/19 21:00 Nasal Cannula 4.0 10/30/19 20:00 98.3 62 20 110/63 (79) 95 10/30/19 20:00 61 10/30/19 16:00 62 10/30/19 16:00 97.7 71 18 137/75 (95) 98 10/30/19 12:00 97.8 81 17 120/57 (78) 97 10/30/19 12:00 61 Height (Feet): 5 Height (Inches): 7.00 Weight (Pounds): 145 General Appearance: no acute distress HEENT: mucous membranes moist Respiratory/Chest: lungs clear, other - oxygen by nasal cannula Cardiovascular: normal rate Abdomen: soft, non tender Extremities: no edema Neurologic/Psychiatric: alert, responsive Microbiology Date/Time Source Procedure Growth Status 10/28/19 20:50 Blood Blood Culture - Preliminary Staphylococcus Sp Coag Neg Resulted 10/28/19 20:35 Blood Blood Culture - Preliminary Staphylococcus Sp Coag Neg Resulted 10/28/19 20:50 Nasopharynx Coronavirus COVID-19 PCR ([facility]) - Final Complete 10/28/19 19:15 Nasopharynx SARS-CoV-2 RdRp Gene Assay - Final Complete Laboratory Tests Test 10/30/19 20:03 10/31/19 05:44 POC Whole Blood Glucose 220 MG/DL (74-106) H White Blood Count 9.8 K/UL (4.8-10.8) Red Blood Count 5.41 M/UL (4.70-6.10) Hemoglobin 15.4 G/DL (14.2-18.0) Hematocrit 46.0 % (42.0-52.0) Mean Corpuscular Volume 85 FL (80-99) Mean Corpuscular Hemoglobin 28.4 PG (27.0-31.0) Mean Corpuscular Hemoglobin Concent 33.5 G/DL (32.0-36.0) Red Cell Distribution Width 10.9 % (11.6-14.8) L Platelet Count 298 K/UL (150-450) Mean Platelet Volume 7.0 FL (6.5-10.1) Neutrophils (%) (Auto) % (45.0-75.0) Lymphocytes (%) (Auto) % (20.0-45.0) Monocytes (%) (Auto) % (1.0-10.0) Eosinophils (%) (Auto) % (0.0-3.0) Basophils (%) (Auto) % (0.0-2.0) Differential Total Cells Counted 100 Neutrophils % (Manual) 88 % (45-75) H Lymphocytes % (Manual) 5 % (20-45) L Monocytes % (Manual) 7 % (1-10) Eosinophils % (Manual) 0 % (0-3) Basophils % (Manual) 0 % (0-2) Band Neutrophils 0 % (0-8) Platelet Estimate Adequate Platelet Morphology Normal Red Blood Cell Morphology Normal Sodium Level 139 MMOL/L (136-145) Potassium Level 3.9 MMOL/L (3.5-5.1) Chloride Level 104 MMOL/L (98-107) Carbon Dioxide Level 29 MMOL/L (21-32) Anion Gap 6 mmol/L (5-15) Blood Urea Nitrogen 21 mg/dL (7-18) H Creatinine 0.7 MG/DL (0.55-1.30) Estimat Glomerular Filtration Rate > 60 mL/min (>60) Glucose Level 97 MG/DL (74-106) # Calcium Level 8.2 MG/DL (8.5-10.1) L Total Bilirubin 0.4 MG/DL (0.2-1.0) Direct Bilirubin 0.1 MG/DL (0.0-0.3) Aspartate Amino Transf (AST/SGOT) 30 U/L (15-37) Alanine Aminotransferase (ALT/SGPT) 38 U/L (12-78) Alkaline Phosphatase 81 U/L (46-116) Total Protein 6.6 G/DL (6.4-8.2) Albumin 2.0 G/DL (3.4-5.0) L Globulin 4.6 g/dL Albumin/Globulin Ratio 0.4 (1.0-2.7) L Current Medications Medications (Trade) Dose Ordered Sig/Roman Route PRN Reason Start Time Stop Time Status Last Admin Dose Admin Acetaminophen (Tylenol) 500 mg Q4H PRN ORAL Mild Pain (Pain Scale 1-3) 10/29/19 00:45 11/28/19 00:44 Dexamethasone Sodium Phosphate (Decadron 10mg/ ml Inj) 6 mg Q24H IV 10/29/19 17:00 01/27/20 16:59 10/30/19 16:58 Dextrose (Dextrose 50%) 25 ml Q30M PRN IV Hypoglycemia 10/29/19 06:45 01/27/20 06:44 Dextrose (Dextrose 50%) 50 ml Q30M PRN IV Hypoglycemia 10/29/19 06:45 01/27/20 06:44 Insulin Aspart (NovoLOG) BEFORE MEALS AND HS SUBQ 10/30/19 16:30 01/28/20 16:29 10/30/19 20:30 Insulin Aspart (NovoLOG) 14 units NOVOTIAC SUBQ 10/31/19 06:30 01/27/20 06:59 Insulin Detemir (Levemir) 15 units Q12HR SUBQ 10/31/19 09:00 01/28/20 19:29 10/31/19 09:50 Remdesivir 100 mg/ Sodium Chloride 250 ml @ 250 mls/hr Q24H IV 10/30/19 17:00 11/02/19 17:59 10/30/19 17:00 Stas Garcia MD Oct 31, 2019 10:42
--- NOTE | 2019-10-31 11:35 | NUR ---
NURSE NOTES: Pt blood sugar 248. Per protocol has standing order plus sliding scale. Pt on nonrebreather mask and will not eat [id number] therefore only provided sc dose.
--- NOTE | 2019-10-31 11:45 | NUR ---
NURSE NOTES: Notified by [employer] that patient saturation in mid 80's on 5L NC. Increased to 6ml and immediate notified RT. RT upgraded to simple mask on 15L but o2 only went up to 90%. RT then upgraded to on-rebreather (15L). Patient 02 went up to 97%. Patient states he feels better and remains asymptomatic. STAT orders for ABG's placed.
[2019-10-31 12:03] VITALS: BP 128/66
--- NOTE | 2019-10-31 13:48 | Diagnostic Imaging Report ---
Indication: Shortness of breath Technique: One view of the chest Comparison: none Findings: Interim worsening of bilateral interstitial and airspace disease. The left hemidiaphragm is becoming obscured, possibly indicating worsening dense consolidation versus development of pleural fluid Impression: Worsening infiltrates diffusely bilaterally. Increasing left basilar consolidation and/or pleural fluid
--- NOTE | 2019-10-31 13:50 | NUR ---
RADIOLOGY DEPT., CHEST X-RAY DONE.-P.DYE
--- NOTE | 2019-10-31 13:55 | Cardiac Electrophysiology PN ---
Assessment/Plan Assessment/Plan 1. Shortness of breath due to COVID pneumonia. S/P Remdesivir treatment. EF 60% 2. Uncontrolled diabetes. On insulin per Dr. Ochoa. 3. Mild bradycardia with HR 50s DW RN Subjective Subjective Got Remdesivir for Covid. HR 50s. On NRB FM Objective Last 24 Hour Vital Signs Date Time Temp Pulse Resp B/P (MAP) Pulse Ox O2 Delivery O2 Flow Rate FiO2 10/31/19 12:03 97.7 93 20 128/66 (86) 97 10/31/19 12:00 60 10/31/19 09:00 Nasal Cannula 4.0 10/31/19 08:00 59 10/31/19 07:59 98.2 97 17 124/65 (84) 96 10/31/19 04:00 98.4 69 19 126/64 (84) 95 10/31/19 04:00 56 10/31/19 00:00 58 10/31/19 00:00 98.5 64 20 116/68 (84) 94 10/30/19 21:00 Nasal Cannula 4.0 10/30/19 20:00 98.3 62 20 110/63 (79) 95 10/30/19 20:00 61 10/30/19 16:00 62 10/30/19 16:00 97.7 71 18 137/75 (95) 98 Intake and Output 10/30/19 10/31/19 19:00 07:00 Intake Total 120 ml 300 ml Output Total 1200 ml 1000 ml Balance -1080 ml -700 ml Intake Oral 120 ml 300 ml Output Urine Total 1200 ml 1000 ml # Voids 3 2 Laboratory Tests Test 10/30/19 20:03 10/31/19 05:44 10/31/19 11:22 POC Whole Blood Glucose 220 MG/DL (74-106) H White Blood Count 9.8 K/UL (4.8-10.8) Red Blood Count 5.41 M/UL (4.70-6.10) Hemoglobin 15.4 G/DL (14.2-18.0) Hematocrit 46.0 % (42.0-52.0) Mean Corpuscular Volume 85 FL (80-99) Mean Corpuscular Hemoglobin 28.4 PG (27.0-31.0) Mean Corpuscular Hemoglobin Concent 33.5 G/DL (32.0-36.0) Red Cell Distribution Width 10.9 % (11.6-14.8) L Platelet Count 298 K/UL (150-450) Mean Platelet Volume 7.0 FL (6.5-10.1) Neutrophils (%) (Auto) % (45.0-75.0) Lymphocytes (%) (Auto) % (20.0-45.0) Monocytes (%) (Auto) % (1.0-10.0) Eosinophils (%) (Auto) % (0.0-3.0) Basophils (%) (Auto) % (0.0-2.0) Differential Total Cells Counted 100 Neutrophils % (Manual) 88 % (45-75) H Lymphocytes % (Manual) 5 % (20-45) L Monocytes % (Manual) 7 % (1-10) Eosinophils % (Manual) 0 % (0-3) Basophils % (Manual) 0 % (0-2) Band Neutrophils 0 % (0-8) Platelet Estimate Adequate Platelet Morphology Normal Red Blood Cell Morphology Normal Sodium Level 139 MMOL/L (136-145) Potassium Level 3.9 MMOL/L (3.5-5.1) Chloride Level 104 MMOL/L (98-107) Carbon Dioxide Level 29 MMOL/L (21-32) Anion Gap 6 mmol/L (5-15) Blood Urea Nitrogen 21 mg/dL (7-18) H Creatinine 0.7 MG/DL (0.55-1.30) Estimat Glomerular Filtration Rate > 60 mL/min (>60) Glucose Level 97 MG/DL (74-106) # Calcium Level 8.2 MG/DL (8.5-10.1) L Total Bilirubin 0.4 MG/DL (0.2-1.0) Direct Bilirubin 0.1 MG/DL (0.0-0.3) Aspartate Amino Transf (AST/SGOT) 30 U/L (15-37) Alanine Aminotransferase (ALT/SGPT) 38 U/L (12-78) Alkaline Phosphatase 81 U/L (46-116) Total Protein 6.6 G/DL (6.4-8.2) Albumin 2.0 G/DL (3.4-5.0) L Globulin 4.6 g/dL Albumin/Globulin Ratio 0.4 (1.0-2.7) L Arterial Blood pH 7.442 (7.350-7.450) Arterial Blood Partial Pressure CO2 35.5 mmHg (35.0-45.0) Arterial Blood Partial Pressure O2 56.7 mmHg (75.0-100.0) L Arterial Blood HCO3 23.7 mmol/L (22.0-26.0) Arterial Blood Oxygen Saturation 88.9 % (95-100) *L Arterial Blood Base Excess 0.1 (-2-2) Rodrigue Test Positive Microbiology Date/Time Source Procedure Growth Status 10/28/19 20:50 Blood Blood Culture - Preliminary Staphylococcus Sp Coag Neg Resulted 10/28/19 20:35 Blood Blood Culture - Preliminary Staphylococcus Sp Coag Neg Resulted 10/28/19 20:50 Nasopharynx Coronavirus COVID-19 PCR ([facility]) - Final Complete 10/28/19 19:15 Nasopharynx SARS-CoV-2 RdRp Gene Assay - Final Complete Objective HEAD AND NECK: No JVD. LUNGS: Clear. CARDIOVASCULAR: Regular S1 and S2 with no gallop or murmur. ABDOMEN: Soft. EXTREMITIES: No pitting edema. Mohsen Epps MD Oct 31, 2019 13:55
[2019-10-31 15:48] VITALS: BP 167/80
[2019-10-31] MEDS ORDERED: IV Preparation Fee IV PRN (17:00)
[2019-10-31] MEDS: Maintenance Dose:Remdesivir 100mg/NS 230ml x 4 Doses IV SCH ×2 (17:22)
[2019-10-31] MEDS: dexAMETHasone 10mg/ml Inj IV SCH (17:22)
--- NOTE | 2019-10-31 19:13 | NUR ---
HAND-OFF: Report given to Antonio Londono RN. Patient stable. Plan of care endorsed. Aware that patient desaturated today and was placed on non-rebreather.
--- NOTE | 2019-10-31 19:14 | NUR ---
NURSE NOTES: Patient received from Ani. Patient in stable condition. Alert and oriented x4. Saturating well @ 97% with a non rebreather mask @ 15L/min. No s/s of distress and no complaints of pain at this time. IV site patent and intact at the Left FA 22G. Bedside table and call light within reach. Bed at lowest position and locked. Will continue plan of care.
--- NOTE | 2019-10-31 19:44 | Consultation ---
DATE OF CONSULTATION: 10/31/2019 PULMONARY CONSULTATION HISTORY OF PRESENT ILLNESS: This is a 64-year-old male admitted to the hospital with shortness of breath. Overnight, he had desaturated prompting pulmonary consultation. His COVID-19 PCR is positive. He has an acute COVID-19 pneumonia. His imaging studies in the last 24 hours show worsening bilateral infiltrates. Per review of medications, the patient has been started on remdesivir and dexamethasone. He is also on Levemir and insulin sliding scale. PAST MEDICAL HISTORY: Notable for diabetes mellitus; however, this is a new diagnosis. PAST SURGICAL HISTORY: None. REVIEW OF SYSTEMS: Denies any headaches, hematemesis, melena, hematochezia, or weight loss. PHYSICAL EXAMINATION: GENERAL: Reveals a 64-year-old male. VITAL SIGNS: Blood pressure 120/60, heart rate 94, respiratory rate 20, O2 saturation 97% on Ventimask. HEENT: Unremarkable. CHEST: Decreased breath sounds bilaterally with normal heart sounds. ABDOMEN: Soft. EXTREMITIES: There is no edema. LABORATORY DATA: Lab testing shows normal CBC. BMP is normal. Glucose is now 220. Coags show D-dimer of 1.1. ABG, pH 7.44, pCO2 35, pO2 57, this is on 4 L of oxygen. IMPRESSION: 1. Hypoxemia. 2. COVID-19 pneumonia. 3. Diabetes mellitus. DISCUSSION: Admit to the hospital. Continue steroids, remdesivir, fluids. We will order aggressive pulmonary hygiene with increased oxygenation, may need nonrebreather mask or high-flow room ventilation. We will follow. Ahsan Mitchell M.D. DR: Anabel JOB#: [id number] CC:
[2019-10-31 20:00] VITALS: BP 134/77
--- NOTE | 2019-10-31 20:59 | General Progress Note ---
Assessment/Plan Problem List: (1) Hyperglycemia ICD Codes: R73.9 - Hyperglycemia, unspecified; J06.9 - Acute upper respiratory infection, unspecified SNOMED: 30775403, 706071435, [id number] (2) Acute respiratory disease due to COVID-19 virus ICD Codes: U07.1 - COVID-19; J06.9 - Acute upper respiratory infection, unspecified SNOMED: 757092785, 289791345, 541383235 Status: progressing Assessment/Plan: niddm covid positive pna supportive rx resps insuff dm Subjective ROS Limited/Unobtainable: Yes Allergies: Coded Allergies: No Known Allergies (Unverified , 10/28/19) Objective Last 24 Hour Vital Signs Date Time Temp Pulse Resp B/P (MAP) Pulse Ox O2 Delivery O2 Flow Rate FiO2 10/31/19 16:00 63 10/31/19 15:48 97.9 65 16 167/80 (109) 95 10/31/19 12:03 97.7 93 20 128/66 (86) 97 10/31/19 12:00 60 10/31/19 09:00 Nasal Cannula 4.0 10/31/19 08:00 59 10/31/19 07:59 98.2 97 17 124/65 (84) 96 10/31/19 04:00 98.4 69 19 126/64 (84) 95 10/31/19 04:00 56 10/31/19 00:00 58 10/31/19 00:00 98.5 64 20 116/68 (84) 94 10/30/19 21:00 Nasal Cannula 4.0 Intake and Output 10/30/19 10/31/19 19:00 07:00 Intake Total 370 ml 300 ml Output Total 1200 ml 1000 ml Balance -830 ml -700 ml Intake Oral 120 ml 300 ml IV Total 250 ml Output Urine Total 1200 ml 1000 ml # Voids 3 2 Laboratory Tests 10/31/19 05:44: White Blood Count 9.8, Red Blood Count 5.41, Hemoglobin 15.4, Hematocrit 46.0, Mean Corpuscular Volume 85, Mean Corpuscular Hemoglobin 28.4, Mean Corpuscular Hemoglobin Concent 33.5, Red Cell Distribution Width 10.9L, Platelet Count 298, Mean Platelet Volume 7.0, Neutrophils (%) (Auto) , Lymphocytes (%) (Auto) , Monocytes (%) (Auto) , Eosinophils (%) (Auto) , Basophils (%) (Auto) , Differential Total Cells Counted 100, Neutrophils % (Manual) 88H, Lymphocytes % (Manual) 5L, Monocytes % (Manual) 7, Eosinophils % (Manual) 0, Basophils % ( Manual) 0, Band Neutrophils 0, Platelet Estimate Adequate, Platelet Morphology Normal, Red Blood Cell Morphology Normal, Sodium Level 139, Potassium Level 3.9 , Chloride Level 104, Carbon Dioxide Level 29, Anion Gap 6, Blood Urea Nitrogen 21H, Creatinine 0.7, Estimat Glomerular Filtration Rate > 60, Glucose Level 97# , POC Whole Blood Glucose 105, Calcium Level 8.2L, Total Bilirubin 0.4, Direct Bilirubin 0.1, Aspartate Amino Transf (AST/SGOT) 30, Alanine Aminotransferase ( ALT/SGPT) 38, Alkaline Phosphatase 81, Total Protein 6.6, Albumin 2.0L, Globulin 4.6, Albumin/Globulin Ratio 0.4L 10/31/19 11:22: Arterial Blood pH 7.442, Arterial Blood Partial Pressure CO2 35.5, Arterial Blood Partial Pressure O2 56.7L, Arterial Blood HCO3 23.7, Arterial Blood Oxygen Saturation 88.9*L, Arterial Blood Base Excess 0.1, Rodrigue Test Positive 10/31/19 20:15: POC Whole Blood Glucose 215H Height (Feet): 5 Height (Inches): 7.00 Weight (Pounds): 145 Nesha Damon MD Oct 31, 2019 20:59
[2019-11-01] VITALS: BP 120/72
[2019-11-01 02:16] LABS: HEMATOCRIT 47.7 % (42.0-52.0); HEMOGLOBIN 15.8 G/DL (14.2-18.0); MEAN CORPUSCULAR VOLUME 85 FL (80-99); PLATELET COUNT 248 K/UL (150-450); RED BLOOD COUNT 5.64 M/UL (4.70-6.10); RED CELL DISTRIBUTION WIDTH 10.9 % (11.6-14.8); WHITE BLOOD COUNT 6.7 K/UL (4.8-10.8)
[2019-11-01 02:30] LABS: ALANINE AMINOTRANSFERASE 36 U/L (12-78); ALBUMIN 2.2 G/DL (3.4-5.0); ALBUMIN/GLOBULIN RATIO 0.5 (1.0-2.7); ALKALINE PHOSPHATASE 85 U/L (46-116); ANION GAP 7 mmol/L (5-15); ASPARTATE AMINO TRANSFERASE 43 U/L (15-37); BILIRUBIN,DIRECT 0.1 MG/DL (0.0-0.3); BILIRUBIN,TOTAL 0.4 MG/DL (0.2-1.0); BLOOD UREA NITROGEN 13 mg/dL (7-18); CARBON DIOXIDE 29 MMOL/L (21-32); CHLORIDE 104 MMOL/L (98-107); CREATININE 0.7 MG/DL (0.55-1.30); SODIUM 140 MMOL/L (136-145)
[2019-11-01 04:00] VITALS: BP 130/79
[2019-11-01] MEDS: NovoLOG Insulin Flexpen SUBQ SCH ×6 (06:11→21:22)
--- NOTE | 2019-11-01 07:18 | NUR ---
HAND-OFF: Report given to Eboni PRASAD. Patient in stable condition. Endorsed plan of care.
[2019-11-01 08:00] VITALS: BP 116/62
[2019-11-01] MEDS: Levemir Flexpen SUBQ SCH (09:00)
[2019-11-01 12:00] VITALS: BP 110/74
--- NOTE | 2019-11-01 12:35 | NUR ---
CASE MANAGEMENT:REVIEW SI;COVID-19 PNEUMONIA. RESPIRATORY INSUFFICIENCY. 98.2 70 20 134/77 93% 15L NRM BG 121 CA 8.0 AST 43 ALB 2.2 IS;REMDESIVIR IV Q24 DECADRON IV Q24 TELEMETRY STATUS DCP;PATIENT IS FROM HOME
--- NOTE | 2019-11-01 13:30 | General Progress Note ---
Assessment/Plan Problem List: (1) Acute respiratory disease due to COVID-19 virus ICD Codes: U07.1 - COVID-19; J06.9 - Acute upper respiratory infection, unspecified SNOMED: 915555760, 602325015, 261399644 (2) Hyperglycemia ICD Codes: R73.9 - Hyperglycemia, unspecified; J06.9 - Acute upper respiratory infection, unspecified SNOMED: 62592101, 913296087, 086056332 Status: progressing Assessment/Plan: DC Levemir 15 units bid DC Novolog to 14 units ac tid continue Novolog sliding scale ac / hs Subjective Allergies: Coded Allergies: No Known Allergies (Unverified , 10/28/19) Subjective events noted glucose values are stable did not received scheduled Novolog and Levemir this morning Item Value Date Time Bedside Blood Glucose 121 mg/dl H 11/01/19 1150 Bedside Blood Glucose 116 mg/dl 11/01/19 0900 Bedside Blood Glucose 116 mg/dl 11/01/19 0615 Bedside Blood Glucose 215 mg/dl H 10/31/19 2100 Bedside Blood Glucose 133 mg/dl H 10/31/19 1650 Objective Last 24 Hour Vital Signs Date Time Temp Pulse Resp B/P (MAP) Pulse Ox O2 Delivery O2 Flow Rate FiO2 11/01/19 12:00 86 11/01/19 12:00 98.7 61 19 110/74 (86) 97 11/01/19 09:00 Non-Rebreather 15.0 11/01/19 08:00 70 11/01/19 08:00 98.2 74 20 116/62 (80) 97 11/01/19 04:00 96.5 61 18 130/79 (96) 98 11/01/19 04:00 65 11/01/19 00:00 62 11/01/19 00:00 98.1 60 18 120/72 (88) 93 10/31/19 21:00 Non-Rebreather 15.0 10/31/19 20:00 71 10/31/19 20:00 96.1 64 18 134/77 (96) 96 10/31/19 16:00 63 10/31/19 15:48 97.9 65 16 167/80 (109) 95 Intake and Output 10/31/19 11/01/19 19:00 07:00 Intake Total 850 ml 118 ml Balance 850 ml 118 ml Intake Oral 600 ml IV Total 250 ml Other 118 ml # Voids 5 Laboratory Tests 10/31/19 20:15: POC Whole Blood Glucose 215H 11/01/19 01:50: White Blood Count 6.7, Red Blood Count 5.64, Hemoglobin 15.8, Hematocrit 47.7, Mean Corpuscular Volume 85, Mean Corpuscular Hemoglobin 28.1, Mean Corpuscular Hemoglobin Concent 33.2, Red Cell Distribution Width 10.9L, Platelet Count 248, Mean Platelet Volume 6.9, Neutrophils (%) (Auto) , Lymphocytes (%) (Auto) , Monocytes (%) (Auto) , Eosinophils (%) (Auto) , Basophils (%) (Auto) , Differential Total Cells Counted 100, Neutrophils % (Manual) 90H, Lymphocytes % (Manual) 6L, Monocytes % (Manual) 4, Eosinophils % (Manual) 0, Basophils % ( Manual) 0, Band Neutrophils 0, Platelet Estimate Adequate, Platelet Morphology Normal, Sodium Level 140, Potassium Level 4.0, Chloride Level 104, Carbon Dioxide Level 29, Anion Gap 7, Blood Urea Nitrogen 13, Creatinine 0.7, Estimat Glomerular Filtration Rate > 60, Glucose Level 103, Calcium Level 8.0L, Total Bilirubin 0.4, Direct Bilirubin 0.1, Aspartate Amino Transf (AST/SGOT) 43H, Alanine Aminotransferase (ALT/SGPT) 36, Alkaline Phosphatase 85, Total Protein 6.9, Albumin 2.2L, Globulin 4.7, Albumin/Globulin Ratio 0.5L, Vancomycin Level Trough 1.0L 11/01/19 05:59: POC Whole Blood Glucose 116H 11/01/19 12:00: POC Whole Blood Glucose 121H Height (Feet): 5 Height (Inches): 7.00 Weight (Pounds): 145 Objective Current Medications Medications (Trade) Dose Ordered Sig/Roman Route PRN Reason Start Time Stop Time Status Last Admin Dose Admin Acetaminophen (Tylenol) 500 mg Q4H PRN ORAL Mild Pain (Pain Scale 1-3) 10/29/19 00:45 11/28/19 00:44 Dexamethasone Sodium Phosphate (Decadron 10mg/ ml Inj) 6 mg Q24H IV 10/29/19 17:00 01/27/20 16:59 10/31/19 17:22 Dextrose (Dextrose 50%) 25 ml Q30M PRN IV Hypoglycemia 10/29/19 06:45 01/27/20 06:44 Dextrose (Dextrose 50%) 50 ml Q30M PRN IV Hypoglycemia 10/29/19 06:45 01/27/20 06:44 Insulin Aspart (NovoLOG) BEFORE MEALS AND HS SUBQ 10/30/19 16:30 01/28/20 16:29 10/31/19 20:20 Insulin Aspart (NovoLOG) 14 units NOVOTIAC SUBQ 10/31/19 06:30 01/27/20 06:59 Insulin Detemir (Levemir) 15 units Q12HR SUBQ 10/31/19 09:00 01/28/20 19:29 10/31/19 20:27 Remdesivir 100 mg/ Sodium Chloride 250 ml @ 250 mls/hr Q24H IV 10/30/19 17:00 11/02/19 17:59 10/31/19 17:22 Aram Ochoa MD Nov 01, 2019 13:30
--- NOTE | 2019-11-01 14:59 | Pulmonology Progress Note ---
Subjective ROS Limited/Unobtainable: Yes Interval Events: None new Constitutional: Reports: no symptoms; Denies: fever HEENT: Repors: no symptoms Respiratory: Reports: dry cough, shortness of breath Cardiovascular: Reports: no symptoms Gastrointestinal/Abdominal: Reports: no symptoms Allergies: Coded Allergies: No Known Allergies (Unverified , 10/28/19) Objective Last 24 Hour Vital Signs Date Time Temp Pulse Resp B/P (MAP) Pulse Ox O2 Delivery O2 Flow Rate FiO2 11/01/19 12:00 86 11/01/19 12:00 98.7 61 19 110/74 (86) 97 11/01/19 09:00 Non-Rebreather 15.0 11/01/19 08:00 70 11/01/19 08:00 98.2 74 20 116/62 (80) 97 11/01/19 04:00 96.5 61 18 130/79 (96) 98 11/01/19 04:00 65 11/01/19 00:00 62 11/01/19 00:00 98.1 60 18 120/72 (88) 93 10/31/19 21:00 Non-Rebreather 15.0 10/31/19 20:00 71 10/31/19 20:00 96.1 64 18 134/77 (96) 96 10/31/19 16:00 63 10/31/19 15:48 97.9 65 16 167/80 (109) 95 Intake and Output 10/31/19 11/01/19 19:00 07:00 Intake Total 850 ml 118 ml Balance 850 ml 118 ml Intake Oral 600 ml IV Total 250 ml Other 118 ml # Voids 5 General Appearance: no acute distress HEENT: normocephalic Respiratory: decreased breath sounds Cardiovascular: normal peripheral pulses Abdomen: normal bowel sounds Laboratory Tests 10/31/19 20:15: POC Whole Blood Glucose 215H 11/01/19 01:50: White Blood Count 6.7, Red Blood Count 5.64, Hemoglobin 15.8, Hematocrit 47.7, Mean Corpuscular Volume 85, Mean Corpuscular Hemoglobin 28.1, Mean Corpuscular Hemoglobin Concent 33.2, Red Cell Distribution Width 10.9L, Platelet Count 248, Mean Platelet Volume 6.9, Neutrophils (%) (Auto) , Lymphocytes (%) (Auto) , Monocytes (%) (Auto) , Eosinophils (%) (Auto) , Basophils (%) (Auto) , Differential Total Cells Counted 100, Neutrophils % (Manual) 90H, Lymphocytes % (Manual) 6L, Monocytes % (Manual) 4, Eosinophils % (Manual) 0, Basophils % ( Manual) 0, Band Neutrophils 0, Platelet Estimate Adequate, Platelet Morphology Normal, Sodium Level 140, Potassium Level 4.0, Chloride Level 104, Carbon Dioxide Level 29, Anion Gap 7, Blood Urea Nitrogen 13, Creatinine 0.7, Estimat Glomerular Filtration Rate > 60, Glucose Level 103, Calcium Level 8.0L, Total Bilirubin 0.4, Direct Bilirubin 0.1, Aspartate Amino Transf (AST/SGOT) 43H, Alanine Aminotransferase (ALT/SGPT) 36, Alkaline Phosphatase 85, Total Protein 6.9, Albumin 2.2L, Globulin 4.7, Albumin/Globulin Ratio 0.5L, Vancomycin Level Trough 1.0L 11/01/19 05:59: POC Whole Blood Glucose 116H 11/01/19 12:00: POC Whole Blood Glucose 121H Current Medications Medications (Trade) Dose Ordered Sig/Roman Route PRN Reason Start Time Stop Time Status Last Admin Dose Admin Acetaminophen (Tylenol) 500 mg Q4H PRN ORAL Mild Pain (Pain Scale 1-3) 10/29/19 00:45 11/28/19 00:44 Dexamethasone Sodium Phosphate (Decadron 10mg/ ml Inj) 6 mg Q24H IV 10/29/19 17:00 01/27/20 16:59 10/31/19 17:22 Dextrose (Dextrose 50%) 25 ml Q30M PRN IV Hypoglycemia 10/29/19 06:45 01/27/20 06:44 Dextrose (Dextrose 50%) 50 ml Q30M PRN IV Hypoglycemia 10/29/19 06:45 01/27/20 06:44 Insulin Aspart (NovoLOG) BEFORE MEALS AND HS SUBQ 10/30/19 16:30 01/28/20 16:29 10/31/19 20:20 Remdesivir 100 mg/ Sodium Chloride 250 ml @ 250 mls/hr Q24H IV 10/30/19 17:00 11/02/19 17:59 10/31/19 17:22 Assessment/Plan Assessment/Plan IMPRESSION: 1. Hypoxemia. 2. COVID-19 pneumonia. 3. Diabetes mellitus. DISCUSSION: Continue steroids, remdesivir, fluids. Continue nonrebreather mask or high-flow room ventilation. I will follow. Self prone ventilation recommended Ahsan Mitchell M.D. Ahsan Mitchell MD Nov 01, 2019 14:59
--- NOTE | 2019-11-01 15:58 | Cardiac Electrophysiology PN ---
Assessment/Plan Assessment/Plan 1. Shortness of breath due to COVID pneumonia. S/P Remdesivir treatment. EF 60% 2. Uncontrolled diabetes. On insulin per Dr. Ochoa. 3. Mild bradycardia with HR 50s 4. PACs DW RN Subjective Subjective Got Remdesivir for Covid. HR 50s. On NRB FM 15 liters Objective Last 24 Hour Vital Signs Date Time Temp Pulse Resp B/P (MAP) Pulse Ox O2 Delivery O2 Flow Rate FiO2 11/01/19 12:00 86 11/01/19 12:00 98.7 61 19 110/74 (86) 97 11/01/19 09:00 Non-Rebreather 15.0 11/01/19 08:00 70 11/01/19 08:00 98.2 74 20 116/62 (80) 97 11/01/19 04:00 96.5 61 18 130/79 (96) 98 11/01/19 04:00 65 11/01/19 00:00 62 11/01/19 00:00 98.1 60 18 120/72 (88) 93 10/31/19 21:00 Non-Rebreather 15.0 10/31/19 20:00 71 10/31/19 20:00 96.1 64 18 134/77 (96) 96 10/31/19 16:00 63 Intake and Output 10/31/19 11/01/19 19:00 07:00 Intake Total 850 ml 118 ml Balance 850 ml 118 ml Intake Oral 600 ml IV Total 250 ml Other 118 ml # Voids 5 Laboratory Tests Test 10/31/19 20:15 11/01/19 01:50 11/01/19 05:59 11/01/19 12:00 POC Whole Blood Glucose 215 MG/DL (74-106) H 116 MG/DL (74-106) H 121 MG/DL (74-106) H White Blood Count 6.7 K/UL (4.8-10.8) Red Blood Count 5.64 M/UL (4.70-6.10) Hemoglobin 15.8 G/DL (14.2-18.0) Hematocrit 47.7 % (42.0-52.0) Mean Corpuscular Volume 85 FL (80-99) Mean Corpuscular Hemoglobin 28.1 PG (27.0-31.0) Mean Corpuscular Hemoglobin Concent 33.2 G/DL (32.0-36.0) Red Cell Distribution Width 10.9 % (11.6-14.8) L Platelet Count 248 K/UL (150-450) Mean Platelet Volume 6.9 FL (6.5-10.1) Neutrophils (%) (Auto) % (45.0-75.0) Lymphocytes (%) (Auto) % (20.0-45.0) Monocytes (%) (Auto) % (1.0-10.0) Eosinophils (%) (Auto) % (0.0-3.0) Basophils (%) (Auto) % (0.0-2.0) Differential Total Cells Counted 100 Neutrophils % (Manual) 90 % (45-75) H Lymphocytes % (Manual) 6 % (20-45) L Monocytes % (Manual) 4 % (1-10) Eosinophils % (Manual) 0 % (0-3) Basophils % (Manual) 0 % (0-2) Band Neutrophils 0 % (0-8) Platelet Estimate Adequate Platelet Morphology Normal Sodium Level 140 MMOL/L (136-145) Potassium Level 4.0 MMOL/L (3.5-5.1) Chloride Level 104 MMOL/L (98-107) Carbon Dioxide Level 29 MMOL/L (21-32) Anion Gap 7 mmol/L (5-15) Blood Urea Nitrogen 13 mg/dL (7-18) Creatinine 0.7 MG/DL (0.55-1.30) Estimat Glomerular Filtration Rate > 60 mL/min (>60) Glucose Level 103 MG/DL (74-106) Calcium Level 8.0 MG/DL (8.5-10.1) L Total Bilirubin 0.4 MG/DL (0.2-1.0) Direct Bilirubin 0.1 MG/DL (0.0-0.3) Aspartate Amino Transf (AST/SGOT) 43 U/L (15-37) H Alanine Aminotransferase (ALT/SGPT) 36 U/L (12-78) Alkaline Phosphatase 85 U/L (46-116) Total Protein 6.9 G/DL (6.4-8.2) Albumin 2.2 G/DL (3.4-5.0) L Globulin 4.7 g/dL Albumin/Globulin Ratio 0.5 (1.0-2.7) L Vancomycin Level Trough 1.0 ug/mL (5.0-12.0) L Objective HEAD AND NECK: No JVD. LUNGS: Clear. CARDIOVASCULAR: Regular S1 and S2 with no gallop or murmur. ABDOMEN: Soft. EXTREMITIES: No pitting edema. Mohsen Epps MD Nov 01, 2019 15:58
[2019-11-01 16:00] VITALS: BP 126/76
[2019-11-01] MEDS: dexAMETHasone 10mg/ml Inj IV SCH (17:02)
[2019-11-01] MEDS: Maintenance Dose:Remdesivir 100mg/NS 230ml x 4 Doses IV SCH ×2 (17:03)
--- NOTE | 2019-11-01 19:20 | NUR ---
NURSE NOTES: Received report from Eboni PRASAD. Patient AXO X4, able to make needs known. Continue on non-rebreather mask at 15L/min, no resp distress noted. patient lying in bed calm. IV in place on left wrist no s/s infiltration noted. Bed in low position, bed alarm on, side rails up x2. Call light with in reach.
[2019-11-01 20:00] VITALS: BP 137/76
--- NOTE | 2019-11-01 21:49 | General Progress Note ---
Assessment/Plan Problem List: (1) Hyperglycemia ICD Codes: R73.9 - Hyperglycemia, unspecified; J06.9 - Acute upper respiratory infection, unspecified SNOMED: 72549685, 755084477, 226131118 (2) Acute respiratory disease due to COVID-19 virus ICD Codes: U07.1 - COVID-19; J06.9 - Acute upper respiratory infection, unspecified SNOMED: 558621251, 486971195, [id number] Status: progressing Assessment/Plan: niddm covid positive pna sugar improving afebrile prn supportive rx resps insuff dm Subjective ROS Limited/Unobtainable: Yes Allergies: Coded Allergies: No Known Allergies (Unverified , 10/28/19) Objective Last 24 Hour Vital Signs Date Time Temp Pulse Resp B/P (MAP) Pulse Ox O2 Delivery O2 Flow Rate FiO2 11/01/19 20:00 97.0 70 20 137/76 (96) 95 11/01/19 16:00 97.1 86 19 126/76 (93) 95 11/01/19 16:00 69 11/01/19 12:00 86 11/01/19 12:00 98.7 61 19 110/74 (86) 97 11/01/19 09:00 Non-Rebreather 15.0 11/01/19 08:00 70 11/01/19 08:00 98.2 74 20 116/62 (80) 97 11/01/19 04:00 96.5 61 18 130/79 (96) 98 11/01/19 04:00 65 11/01/19 00:00 62 11/01/19 00:00 98.1 60 18 120/72 (88) 93 Intake and Output 10/31/19 11/01/19 19:00 07:00 Intake Total 850 ml 118 ml Balance 850 ml 118 ml Intake Oral 600 ml IV Total 250 ml Other 118 ml # Voids 5 Laboratory Tests 11/01/19 01:50: White Blood Count 6.7, Red Blood Count 5.64, Hemoglobin 15.8, Hematocrit 47.7, Mean Corpuscular Volume 85, Mean Corpuscular Hemoglobin 28.1, Mean Corpuscular Hemoglobin Concent 33.2, Red Cell Distribution Width 10.9L, Platelet Count 248, Mean Platelet Volume 6.9, Neutrophils (%) (Auto) , Lymphocytes (%) (Auto) , Monocytes (%) (Auto) , Eosinophils (%) (Auto) , Basophils (%) (Auto) , Differential Total Cells Counted 100, Neutrophils % (Manual) 90H, Lymphocytes % (Manual) 6L, Monocytes % (Manual) 4, Eosinophils % (Manual) 0, Basophils % ( Manual) 0, Band Neutrophils 0, Platelet Estimate Adequate, Platelet Morphology Normal, Sodium Level 140, Potassium Level 4.0, Chloride Level 104, Carbon Dioxide Level 29, Anion Gap 7, Blood Urea Nitrogen 13, Creatinine 0.7, Estimat Glomerular Filtration Rate > 60, Glucose Level 103, Calcium Level 8.0L, Total Bilirubin 0.4, Direct Bilirubin 0.1, Aspartate Amino Transf (AST/SGOT) 43H, Alanine Aminotransferase (ALT/SGPT) 36, Alkaline Phosphatase 85, Total Protein 6.9, Albumin 2.2L, Globulin 4.7, Albumin/Globulin Ratio 0.5L, Vancomycin Level Trough 1.0L 11/01/19 05:59: POC Whole Blood Glucose 116H 11/01/19 12:00: POC Whole Blood Glucose 121H 11/01/19 17:13: POC Whole Blood Glucose [Pending] 11/01/19 21:02: POC Whole Blood Glucose 288H Height (Feet): 5 Height (Inches): 7.00 Weight (Pounds): 145 Nesha Damon MD Nov 01, 2019 21:49
[2019-11-02] VITALS: BP 123/73
[2019-11-02 04:00] VITALS: BP 120/75
[2019-11-02] MEDS: NovoLOG Insulin Flexpen SUBQ SCH ×4 (06:38→22:51)
[2019-11-02 07:19] LABS: HEMATOCRIT 45.5 % (42.0-52.0); HEMOGLOBIN 15.4 G/DL (14.2-18.0); MEAN CORPUSCULAR VOLUME 84 FL (80-99); PLATELET COUNT 201 K/UL (150-450); RED CELL DISTRIBUTION WIDTH 10.9 % (11.6-14.8)
--- NOTE | 2019-11-02 07:30 | NUR ---
NURSE NOTES: Received pt from OSMAR Irene, pt is awake and alert, pt has no rebreathe mask, pt is on continues heart monitoring, no complain of pain at this moment, pt has intact iv access LFA 22g SL. pt is eating breakfast by observation. all needs attended, bed is locked and is in the lowest position, call light within easy reach. will continue to monitor. Addendum: 11/02/19 at 0815 by Hien Shaw RN ERROR Rebreathe mask is on now.
--- NOTE | 2019-11-02 07:30 | NUR ---
HAND-OFF: Report given to OSMAR Stanford
[2019-11-02 07:39] LABS: ALANINE AMINOTRANSFERASE 32 U/L (12-78); ALBUMIN 2.1 G/DL (3.4-5.0); ALBUMIN/GLOBULIN RATIO 0.5 (1.0-2.7); ALKALINE PHOSPHATASE 93 U/L (46-116); ANION GAP 7 mmol/L (5-15); ASPARTATE AMINO TRANSFERASE 30 U/L (15-37); BILIRUBIN,DIRECT 0.1 MG/DL (0.0-0.3); BILIRUBIN,TOTAL 0.4 MG/DL (0.2-1.0); BLOOD UREA NITROGEN 18 mg/dL (7-18); CALCIUM 8.6 MG/DL (8.5-10.1); CARBON DIOXIDE 28 MMOL/L (21-32); CHLORIDE 103 MMOL/L (98-107); CREATININE 0.7 MG/DL (0.55-1.30); POTASSIUM 4.5 MMOL/L (3.5-5.1); SODIUM 138 MMOL/L (136-145)
[2019-11-02 08:00] VITALS: BP 117/66
--- NOTE | 2019-11-02 08:16 | General Progress Note ---
Assessment/Plan Problem List: (1) Acute respiratory disease due to COVID-19 virus ICD Codes: U07.1 - COVID-19; J06.9 - Acute upper respiratory infection, unspecified SNOMED: 627365789, 499942213, 605895164 (2) Hyperglycemia ICD Codes: R73.9 - Hyperglycemia, unspecified; J06.9 - Acute upper respiratory infection, unspecified SNOMED: 46222087, 854852800, 501103879 Status: progressing Assessment/Plan: start Levemir 10 units daily continue Novolog sliding scale ac / hs Subjective Allergies: Coded Allergies: No Known Allergies (Unverified , 10/28/19) Subjective events noted glucose raised to 400 range without Levemir Item Value Date Time Bedside Blood Glucose 289 mg/dl H 11/02/19 0638 Bedside Blood Glucose 288 mg/dl H 11/01/19 2122 Bedside Blood Glucose 451 mg/dl H 11/01/19 1630 Bedside Blood Glucose 121 mg/dl H 11/01/19 1150 Bedside Blood Glucose 116 mg/dl 11/01/19 0900 Bedside Blood Glucose 116 mg/dl 11/01/19 0615 Objective Last 24 Hour Vital Signs Date Time Temp Pulse Resp B/P (MAP) Pulse Ox O2 Delivery O2 Flow Rate FiO2 11/02/19 04:00 98 11/02/19 04:00 96.4 98 20 120/75 (90) 94 11/02/19 00:00 97.6 64 20 123/73 (90) 95 11/02/19 00:00 66 11/01/19 21:00 Non-Rebreather 15.0 11/01/19 20:00 75 11/01/19 20:00 97.0 70 20 137/76 (96) 95 11/01/19 16:00 97.1 86 19 126/76 (93) 95 11/01/19 16:00 69 11/01/19 12:00 86 11/01/19 12:00 98.7 61 19 110/74 (86) 97 11/01/19 09:00 Non-Rebreather 15.0 Intake and Output 11/01/19 11/02/19 18:59 06:59 Intake Total 480 ml 360 ml Output Total 1800 ml Balance -1320 ml 360 ml Intake Oral 480 ml Other 360 ml Output Urine Total 1800 ml # Voids 3 3 Laboratory Tests 11/01/19 12:00: POC Whole Blood Glucose 121H 11/01/19 17:13: POC Whole Blood Glucose [Pending] 11/01/19 21:02: POC Whole Blood Glucose 288H 11/02/19 05:53: POC Whole Blood Glucose 289H 11/02/19 06:00: White Blood Count 7.0, Red Blood Count 5.40, Hemoglobin 15.4, Hematocrit 45.5, Mean Corpuscular Volume 84, Mean Corpuscular Hemoglobin 28.6, Mean Corpuscular Hemoglobin Concent 33.9, Red Cell Distribution Width 10.9L, Platelet Count 201, Mean Platelet Volume 7.3, Neutrophils (%) (Auto) , Lymphocytes (%) (Auto) , Monocytes (%) (Auto) , Eosinophils (%) (Auto) , Basophils (%) (Auto) , Neutrophils % (Manual) [Pending], Lymphocytes % (Manual) [Pending], Platelet Estimate [Pending], Platelet Morphology [Pending], Sodium Level 138, Potassium Level 4.5, Chloride Level 103, Carbon Dioxide Level 28, Anion Gap 7, Blood Urea Nitrogen 18, Creatinine 0.7, Estimat Glomerular Filtration Rate > 60, Glucose Level 295#H, Calcium Level 8.6, Total Bilirubin 0.4, Direct Bilirubin 0.1, Aspartate Amino Transf (AST/SGOT) 30, Alanine Aminotransferase (ALT/SGPT) 32, Alkaline Phosphatase 93, Total Protein 6.6, Albumin 2.1L, Globulin 4.5, Albumin/ Globulin Ratio 0.5L Height (Feet): 5 Height (Inches): 7.00 Weight (Pounds): 145 Objective Current Medications Medications (Trade) Dose Ordered Sig/Roman Route PRN Reason Start Time Stop Time Status Last Admin Dose Admin Acetaminophen (Tylenol) 500 mg Q4H PRN ORAL Mild Pain (Pain Scale 1-3) 10/29/19 00:45 11/28/19 00:44 Dexamethasone Sodium Phosphate (Decadron 10mg/ ml Inj) 6 mg Q24H IV 10/29/19 17:00 01/27/20 16:59 11/01/19 17:02 Dextrose (Dextrose 50%) 25 ml Q30M PRN IV Hypoglycemia 10/29/19 06:45 01/27/20 06:44 Dextrose (Dextrose 50%) 50 ml Q30M PRN IV Hypoglycemia 10/29/19 06:45 01/27/20 06:44 Insulin Aspart (NovoLOG) BEFORE MEALS AND HS SUBQ 10/30/19 16:30 01/28/20 16:29 11/02/19 06:38 Remdesivir 100 mg/ Sodium Chloride 250 ml @ 250 mls/hr Q24H IV 10/30/19 17:00 11/02/19 17:59 11/01/19 17:03 Aram Ochoa MD Nov 02, 2019 08:16
[2019-11-02] MEDS: Levemir Flexpen SUBQ SCH (09:14)
[2019-11-02] MEDS: Acetaminophen 500mg (ES) tab ORAL PRN (09:15)
[2019-11-02] MEDS: Nateglinide 60mg tab ORAL SCH ×2 (11:31→17:17)
--- NOTE | 2019-11-02 11:36 | Infectious Diseases Prog Note ---
Assessment/Plan Assessment/Plan IMPRESSION: COVID-19 pneumonia, worsening CXR Hypoxemia, Uncontrolled diabetes mellitus, Hyponatremia. RECOMMENDATION: Continue remdesivir & dexamethasone. Add Rocephin F/u CMP Subjective ROS Limited/Unobtainable: Yes Constitutional: Denies: fever Respiratory: Reports: shortness of breath Allergies: Coded Allergies: No Known Allergies (Unverified , 10/28/19) Objective Last 24 Hour Vital Signs Date Time Temp Pulse Resp B/P (MAP) Pulse Ox O2 Delivery O2 Flow Rate FiO2 11/02/19 08:00 72 11/02/19 08:00 97.9 68 24 117/66 (83) 96 11/02/19 04:00 98 11/02/19 04:00 96.4 98 20 120/75 (90) 94 11/02/19 00:00 97.6 64 20 123/73 (90) 95 11/02/19 00:00 66 11/01/19 21:00 Non-Rebreather 15.0 11/01/19 20:00 75 11/01/19 20:00 97.0 70 20 137/76 (96) 95 11/01/19 16:00 97.1 86 19 126/76 (93) 95 11/01/19 16:00 69 11/01/19 12:00 86 11/01/19 12:00 98.7 61 19 110/74 (86) 97 Height (Feet): 5 Height (Inches): 7.00 Weight (Pounds): 145 General Appearance: no acute distress HEENT: mucous membranes moist Respiratory/Chest: other - oxygen by rebreathing mask Cardiovascular: normal rate Abdomen: soft, non tender Extremities: no edema Neurologic/Psychiatric: alert, responsive Laboratory Tests Test 11/01/19 12:00 11/01/19 17:13 11/01/19 21:02 11/02/19 05:53 POC Whole Blood Glucose 121 MG/DL (74-106) H Pending 288 MG/DL (74-106) H 289 MG/DL (74-106) H Test 11/02/19 06:00 White Blood Count 7.0 K/UL (4.8-10.8) Red Blood Count 5.40 M/UL (4.70-6.10) Hemoglobin 15.4 G/DL (14.2-18.0) Hematocrit 45.5 % (42.0-52.0) Mean Corpuscular Volume 84 FL (80-99) Mean Corpuscular Hemoglobin 28.6 PG (27.0-31.0) Mean Corpuscular Hemoglobin Concent 33.9 G/DL (32.0-36.0) Red Cell Distribution Width 10.9 % (11.6-14.8) L Platelet Count 201 K/UL (150-450) Mean Platelet Volume 7.3 FL (6.5-10.1) Neutrophils (%) (Auto) % (45.0-75.0) Lymphocytes (%) (Auto) % (20.0-45.0) Monocytes (%) (Auto) % (1.0-10.0) Eosinophils (%) (Auto) % (0.0-3.0) Basophils (%) (Auto) % (0.0-2.0) Differential Total Cells Counted 100 Neutrophils % (Manual) 89 % (45-75) H Lymphocytes % (Manual) 8 % (20-45) L Monocytes % (Manual) 2 % (1-10) Eosinophils % (Manual) 1 % (0-3) Basophils % (Manual) 0 % (0-2) Band Neutrophils 0 % (0-8) Platelet Estimate Adequate Platelet Morphology Normal Red Blood Cell Morphology Normal Sodium Level 138 MMOL/L (136-145) Potassium Level 4.5 MMOL/L (3.5-5.1) Chloride Level 103 MMOL/L (98-107) Carbon Dioxide Level 28 MMOL/L (21-32) Anion Gap 7 mmol/L (5-15) Blood Urea Nitrogen 18 mg/dL (7-18) Creatinine 0.7 MG/DL (0.55-1.30) Estimat Glomerular Filtration Rate > 60 mL/min (>60) Glucose Level 295 MG/DL (74-106) #H Calcium Level 8.6 MG/DL (8.5-10.1) Total Bilirubin 0.4 MG/DL (0.2-1.0) Direct Bilirubin 0.1 MG/DL (0.0-0.3) Aspartate Amino Transf (AST/SGOT) 30 U/L (15-37) Alanine Aminotransferase (ALT/SGPT) 32 U/L (12-78) Alkaline Phosphatase 93 U/L (46-116) Total Protein 6.6 G/DL (6.4-8.2) Albumin 2.1 G/DL (3.4-5.0) L Globulin 4.5 g/dL Albumin/Globulin Ratio 0.5 (1.0-2.7) L Current Medications Medications (Trade) Dose Ordered Sig/Roman Route PRN Reason Start Time Stop Time Status Last Admin Dose Admin Acetaminophen (Tylenol) 500 mg Q4H PRN ORAL Mild Pain (Pain Scale 1-3) 10/29/19 00:45 11/28/19 00:44 11/02/19 09:15 Dexamethasone Sodium Phosphate (Decadron 10mg/ ml Inj) 6 mg Q24H IV 10/29/19 17:00 01/27/20 16:59 11/01/19 17:02 Dextrose (Dextrose 50%) 25 ml Q30M PRN IV Hypoglycemia 11/02/19 08:30 01/31/20 08:29 Dextrose (Dextrose 50%) 50 ml Q30M PRN IV Hypoglycemia 11/02/19 08:30 01/31/20 08:29 Insulin Aspart (NovoLOG) BEFORE MEALS AND HS SUBQ 10/30/19 16:30 01/28/20 16:29 11/02/19 06:38 Insulin Detemir (Levemir) 10 units DAILY SUBQ 11/02/19 09:00 01/31/20 08:59 11/02/19 09:14 Nateglinide (Starlix) 60 mg TIAC ORAL 11/02/19 11:30 12/02/19 11:29 11/02/19 11:31 Remdesivir 100 mg/ Sodium Chloride 250 ml @ 250 mls/hr Q24H IV 10/30/19 17:00 11/02/19 17:59 11/01/19 17:03 Stas Garcia MD Nov 02, 2019 11:36
[2019-11-02 12:00] VITALS: BP 127/68
[2019-11-02] MEDS ORDERED: cefTRIAXone 1 GM in D5W 55 ML IVPB SCH (12:00)
[2019-11-02] MEDS ORDERED: 1/2 NS 1000ml IV ONE (13:29)
[2019-11-02 16:00] VITALS: BP 130/70
--- NOTE | 2019-11-02 16:40 | Cardiac Electrophysiology PN ---
Assessment/Plan Assessment/Plan 1. Shortness of breath due to COVID pneumonia. S/P Remdesivir treatment. EF 60% 2. Uncontrolled diabetes. On insulin per Dr. Ochoa. 3. Mild bradycardia with HR 50s 4. PACs DW RN Subjective Subjective Got Remdesivir for Covid. On NRB FM 15 liters Objective Last 24 Hour Vital Signs Date Time Temp Pulse Resp B/P (MAP) Pulse Ox O2 Delivery O2 Flow Rate FiO2 11/02/19 16:00 96.3 60 24 130/70 (90) 97 11/02/19 15:56 61 11/02/19 12:26 72 11/02/19 12:00 97.9 63 24 127/68 (87) 96 11/02/19 09:00 Non-Rebreather 15.0 11/02/19 08:00 72 11/02/19 08:00 97.9 68 24 117/66 (83) 96 11/02/19 04:00 98 11/02/19 04:00 96.4 98 20 120/75 (90) 94 11/02/19 00:00 97.6 64 20 123/73 (90) 95 11/02/19 00:00 66 11/01/19 21:00 Non-Rebreather 15.0 11/01/19 20:00 75 11/01/19 20:00 97.0 70 20 137/76 (96) 95 Intake and Output 11/01/19 11/02/19 19:00 07:00 Intake Total 480 ml 360 ml Output Total 1800 ml Balance -1320 ml 360 ml Intake Oral 480 ml Other 360 ml Output Urine Total 1800 ml # Voids 3 3 Laboratory Tests Test 11/01/19 17:13 11/01/19 21:02 11/02/19 05:53 11/02/19 06:00 POC Whole Blood Glucose Pending 288 MG/DL (74-106) H 289 MG/DL (74-106) H White Blood Count 7.0 K/UL (4.8-10.8) Red Blood Count 5.40 M/UL (4.70-6.10) Hemoglobin 15.4 G/DL (14.2-18.0) Hematocrit 45.5 % (42.0-52.0) Mean Corpuscular Volume 84 FL (80-99) Mean Corpuscular Hemoglobin 28.6 PG (27.0-31.0) Mean Corpuscular Hemoglobin Concent 33.9 G/DL (32.0-36.0) Red Cell Distribution Width 10.9 % (11.6-14.8) L Platelet Count 201 K/UL (150-450) Mean Platelet Volume 7.3 FL (6.5-10.1) Neutrophils (%) (Auto) % (45.0-75.0) Lymphocytes (%) (Auto) % (20.0-45.0) Monocytes (%) (Auto) % (1.0-10.0) Eosinophils (%) (Auto) % (0.0-3.0) Basophils (%) (Auto) % (0.0-2.0) Differential Total Cells Counted 100 Neutrophils % (Manual) 89 % (45-75) H Lymphocytes % (Manual) 8 % (20-45) L Monocytes % (Manual) 2 % (1-10) Eosinophils % (Manual) 1 % (0-3) Basophils % (Manual) 0 % (0-2) Band Neutrophils 0 % (0-8) Platelet Estimate Adequate Platelet Morphology Normal Red Blood Cell Morphology Normal Sodium Level 138 MMOL/L (136-145) Potassium Level 4.5 MMOL/L (3.5-5.1) Chloride Level 103 MMOL/L (98-107) Carbon Dioxide Level 28 MMOL/L (21-32) Anion Gap 7 mmol/L (5-15) Blood Urea Nitrogen 18 mg/dL (7-18) Creatinine 0.7 MG/DL (0.55-1.30) Estimat Glomerular Filtration Rate > 60 mL/min (>60) Glucose Level 295 MG/DL (74-106) #H Calcium Level 8.6 MG/DL (8.5-10.1) Total Bilirubin 0.4 MG/DL (0.2-1.0) Direct Bilirubin 0.1 MG/DL (0.0-0.3) Aspartate Amino Transf (AST/SGOT) 30 U/L (15-37) Alanine Aminotransferase (ALT/SGPT) 32 U/L (12-78) Alkaline Phosphatase 93 U/L (46-116) Total Protein 6.6 G/DL (6.4-8.2) Albumin 2.1 G/DL (3.4-5.0) L Globulin 4.5 g/dL Albumin/Globulin Ratio 0.5 (1.0-2.7) L Test 11/02/19 11:38 POC Whole Blood Glucose Pending Objective HEAD AND NECK: No JVD. LUNGS: Clear. CARDIOVASCULAR: Regular S1 and S2 with no gallop or murmur. ABDOMEN: Soft. EXTREMITIES: No pitting edema. Mohsen Epps MD Nov 02, 2019 16:40
[2019-11-02] MEDS: Maintenance Dose:Remdesivir 100mg/NS 230ml x 4 Doses IV SCH ×2 (17:16)
[2019-11-02] MEDS: dexAMETHasone 10mg/ml Inj IV SCH (17:17)
--- NOTE | 2019-11-02 19:33 | NUR ---
HAND-OFF: Report given to OSMAR Irene. Pt is awake and stable, no stress noted, endorsed plan of care.
--- NOTE | 2019-11-02 19:40 | NUR ---
NURSE NOTES: Received report from OSMAR Stanford. Patient AXO X4, able to make needs known. On continuous non-rebreather mask at 15L/min, no resp distress noted. patient lying in semi fowlers in bed,calm, resting at this time. IV's patent, asymptomatic, sale locked. Bed in low position, locked, bed alarm on, side rails up x2. Call light with in reach.
--- NOTE | 2019-11-02 23:39 | General Progress Note ---
Assessment/Plan Problem List: (1) Hyperglycemia ICD Codes: R73.9 - Hyperglycemia, unspecified; J06.9 - Acute upper respiratory infection, unspecified SNOMED: 24131679, 126593247, 105710509 (2) Acute respiratory disease due to COVID-19 virus ICD Codes: U07.1 - COVID-19; J06.9 - Acute upper respiratory infection, unspecified SNOMED: 957746106, 076074036, 195420981 Status: progressing Assessment/Plan: niddm covid positive pna supportive therapy on oxygen poor po intake resps insuff Subjective ROS Limited/Unobtainable: Yes Allergies: Coded Allergies: No Known Allergies (Unverified , 10/28/19) Objective Last 24 Hour Vital Signs Date Time Temp Pulse Resp B/P (MAP) Pulse Ox O2 Delivery O2 Flow Rate FiO2 11/02/19 21:00 Non-Rebreather 15.0 11/02/19 16:00 96.3 60 24 130/70 (90) 97 11/02/19 15:56 61 11/02/19 12:26 72 11/02/19 12:00 97.9 63 24 127/68 (87) 96 11/02/19 09:00 Non-Rebreather 15.0 11/02/19 08:00 72 11/02/19 08:00 97.9 68 24 117/66 (83) 96 11/02/19 04:00 98 11/02/19 04:00 96.4 98 20 120/75 (90) 94 11/02/19 00:00 97.6 64 20 123/73 (90) 95 11/02/19 00:00 66 Intake and Output 11/01/19 11/02/19 19:00 07:00 Intake Total 480 ml 360 ml Output Total 1800 ml Balance -1320 ml 360 ml Intake Oral 480 ml Other 360 ml Output Urine Total 1800 ml # Voids 3 3 Laboratory Tests 11/02/19 05:53: POC Whole Blood Glucose 289H 11/02/19 06:00: White Blood Count 7.0, Red Blood Count 5.40, Hemoglobin 15.4, Hematocrit 45.5, Mean Corpuscular Volume 84, Mean Corpuscular Hemoglobin 28.6, Mean Corpuscular Hemoglobin Concent 33.9, Red Cell Distribution Width 10.9L, Platelet Count 201, Mean Platelet Volume 7.3, Neutrophils (%) (Auto) , Lymphocytes (%) (Auto) , Monocytes (%) (Auto) , Eosinophils (%) (Auto) , Basophils (%) (Auto) , Differential Total Cells Counted 100, Neutrophils % (Manual) 89H, Lymphocytes % (Manual) 8L, Monocytes % (Manual) 2, Eosinophils % (Manual) 1, Basophils % ( Manual) 0, Band Neutrophils 0, Platelet Estimate Adequate, Platelet Morphology Normal, Red Blood Cell Morphology Normal, Sodium Level 138, Potassium Level 4.5 , Chloride Level 103, Carbon Dioxide Level 28, Anion Gap 7, Blood Urea Nitrogen 18, Creatinine 0.7, Estimat Glomerular Filtration Rate > 60, Glucose Level 295#H , Calcium Level 8.6, Total Bilirubin 0.4, Direct Bilirubin 0.1, Aspartate Amino Transf (AST/SGOT) 30, Alanine Aminotransferase (ALT/SGPT) 32, Alkaline Phosphatase 93, Total Protein 6.6, Albumin 2.1L, Globulin 4.5, Albumin/Globulin Ratio 0.5L 11/02/19 11:38: POC Whole Blood Glucose [Pending] 11/02/19 17:29: POC Whole Blood Glucose 238H 11/02/19 20:57: POC Whole Blood Glucose 281H Height (Feet): 5 Height (Inches): 7.00 Weight (Pounds): 145 Nesha Damon MD Nov 02, 2019 23:39
[2019-11-03] VITALS (7 sets, daily range): BP systolic 117–126; BP diastolic 58–69
[2019-11-03] MEDS: Nateglinide 60mg tab ORAL SCH (06:14)
[2019-11-03] MEDS: NovoLOG Insulin Flexpen SUBQ SCH ×6 (06:18→22:03)
--- NOTE | 2019-11-03 06:44 | General Progress Note ---
Assessment/Plan Problem List: (1) Acute respiratory disease due to COVID-19 virus ICD Codes: U07.1 - COVID-19; J06.9 - Acute upper respiratory infection, unspecified SNOMED: 446945432, 049580408, 741829773 (2) Hyperglycemia ICD Codes: R73.9 - Hyperglycemia, unspecified; J06.9 - Acute upper respiratory infection, unspecified SNOMED: 98407028, 364095775, 310716684 Status: progressing Assessment/Plan: increase Levemir to 15 units daily DC Starlix add Novolog 5 units ac tid continue Novolog sliding scale ac / hs Subjective Allergies: Coded Allergies: No Known Allergies (Unverified , 10/28/19) Subjective events noted glucose values are still elevated Item Value Date Time Bedside Blood Glucose 375 mg/dl H 11/03/19 0623 Bedside Blood Glucose 281 mg/dl H 11/02/19 2251 Bedside Blood Glucose 238 mg/dl H 11/02/19 1630 Bedside Blood Glucose 282 mg/dl H 11/02/19 1324 Bedside Blood Glucose 289 mg/dl H 11/02/19 0914 Bedside Blood Glucose 289 mg/dl H 11/02/19 0638 Objective Last 24 Hour Vital Signs Date Time Temp Pulse Resp B/P (MAP) Pulse Ox O2 Delivery O2 Flow Rate FiO2 11/03/19 04:00 79 11/03/19 04:00 98.1 61 19 126/62 (83) 97 11/03/19 00:00 65 11/03/19 00:00 98.3 64 21 122/67 (85) 97 11/02/19 21:00 Non-Rebreather 15.0 11/02/19 20:00 69 11/02/19 16:00 96.3 60 24 130/70 (90) 97 11/02/19 15:56 61 11/02/19 12:26 72 11/02/19 12:00 97.9 63 24 127/68 (87) 96 11/02/19 09:00 Non-Rebreather 15.0 11/02/19 08:00 72 11/02/19 08:00 97.9 68 24 117/66 (83) 96 Intake and Output 11/02/19 11/03/19 19:00 07:00 Intake Total 785 ml Output Total 800 ml 600 ml Balance -15 ml -600 ml Intake Oral 480 ml IV Total 305 ml Output Urine Total 800 ml 600 ml # Voids 1 2 Laboratory Tests 11/02/19 11:38: POC Whole Blood Glucose [Pending] 11/02/19 17:29: POC Whole Blood Glucose 238H 11/02/19 20:57: POC Whole Blood Glucose 281H 11/03/19 06:16: POC Whole Blood Glucose 375H Height (Feet): 5 Height (Inches): 7.00 Weight (Pounds): 145 Objective Current Medications Medications (Trade) Dose Ordered Sig/Roman Route PRN Reason Start Time Stop Time Status Last Admin Dose Admin Acetaminophen (Tylenol) 500 mg Q4H PRN ORAL Mild Pain (Pain Scale 1-3) 10/29/19 00:45 11/28/19 00:44 11/02/19 09:15 Ceftriaxone Sodium 1 gm/ Dextrose 55 ml @ 110 mls/hr Q24H IVPB 11/02/19 12:00 11/09/19 11:59 11/02/19 13:08 Dexamethasone Sodium Phosphate (Decadron 10mg/ ml Inj) 6 mg Q24H IV 10/29/19 17:00 01/27/20 16:59 11/02/19 17:17 Dextrose (Dextrose 50%) 25 ml Q30M PRN IV Hypoglycemia 11/02/19 08:30 01/31/20 08:29 Dextrose (Dextrose 50%) 50 ml Q30M PRN IV Hypoglycemia 11/02/19 08:30 01/31/20 08:29 Insulin Aspart (NovoLOG) BEFORE MEALS AND HS SUBQ 10/30/19 16:30 01/28/20 16:29 11/03/19 06:18 Insulin Detemir (Levemir) 10 units DAILY SUBQ 11/02/19 09:00 01/31/20 08:59 11/02/19 09:14 Nateglinide (Starlix) 60 mg TIAC ORAL 11/02/19 11:30 12/02/19 11:29 11/03/19 06:14 Aram Ochoa MD Nov 03, 2019 06:44
--- NOTE | 2019-11-03 07:29 | NUR ---
Received pt from [facility], pt is awake and alert, pt has rebreathe mask, pt is on continues heart monitoring, no complain of pain at this moment, pt has intact iv access LAC and L wrist 22g SL. pt is eating breakfast by observation. all needs attended, bed is locked and is in the lowest position, call light within easy reach. will continue to monitor.
--- NOTE | 2019-11-03 07:39 | NUR ---
HAND-OFF: Report given to OSMAR Stanford.
[2019-11-03] MEDS: Levemir Flexpen SUBQ SCH (08:49)
--- NOTE | 2019-11-03 11:14 | General Progress Note ---
Assessment/Plan Problem List: (1) Hyperglycemia ICD Codes: R73.9 - Hyperglycemia, unspecified; J06.9 - Acute upper respiratory infection, unspecified SNOMED: 81203358, 774593420, [id number] (2) Acute respiratory disease due to COVID-19 virus ICD Codes: U07.1 - COVID-19; J06.9 - Acute upper respiratory infection, unspecified SNOMED: 162664852, 547219861, [id number] Status: progressing Assessment/Plan: niddm covid positive pna elevated sugar still oxygen prn positive blood cx resps insuff Subjective ROS Limited/Unobtainable: Yes Allergies: Coded Allergies: No Known Allergies (Unverified , 10/28/19) Objective Last 24 Hour Vital Signs Date Time Temp Pulse Resp B/P (MAP) Pulse Ox O2 Delivery O2 Flow Rate FiO2 11/03/19 09:00 Non-Rebreather 15.0 11/03/19 08:30 91 11/03/19 08:00 98.2 71 18 117/65 (82) 96 11/03/19 04:00 79 11/03/19 04:00 98.1 61 19 126/62 (83) 97 11/03/19 00:00 65 11/03/19 00:00 98.3 64 21 122/67 (85) 97 11/02/19 21:00 Non-Rebreather 15.0 11/02/19 20:00 69 11/02/19 16:00 96.3 60 24 130/70 (90) 97 11/02/19 15:56 61 11/02/19 12:26 72 11/02/19 12:00 97.9 63 24 127/68 (87) 96 Intake and Output 11/02/19 11/03/19 19:00 07:00 Intake Total 785 ml Output Total 800 ml 600 ml Balance -15 ml -600 ml Intake Oral 480 ml IV Total 305 ml Output Urine Total 800 ml 600 ml # Voids 1 2 Laboratory Tests 11/02/19 11:38: POC Whole Blood Glucose [Pending] 11/02/19 17:29: POC Whole Blood Glucose 238H 11/02/19 20:57: POC Whole Blood Glucose 281H 11/03/19 06:16: POC Whole Blood Glucose 375H Height (Feet): 5 Height (Inches): 7.00 Weight (Pounds): 145 Nesha Damon MD Nov 03, 2019 11:14
--- NOTE | 2019-11-03 11:39 | Infectious Diseases Prog Note ---
Assessment/Plan Assessment/Plan IMPRESSION: COVID-19 pneumonia, worsening CXR Hypoxemia, Uncontrolled diabetes mellitus, Hyponatremia. RECOMMENDATION: Finished remdesivir Continue dexamethasone & Rocephin Subjective ROS Limited/Unobtainable: Yes Constitutional: Denies: fever Respiratory: Reports: shortness of breath Allergies: Coded Allergies: No Known Allergies (Unverified , 10/28/19) Objective Last 24 Hour Vital Signs Date Time Temp Pulse Resp B/P (MAP) Pulse Ox O2 Delivery O2 Flow Rate FiO2 11/03/19 09:00 Non-Rebreather 15.0 11/03/19 08:30 91 11/03/19 08:00 98.2 71 18 117/65 (82) 96 11/03/19 04:00 79 11/03/19 04:00 98.1 61 19 126/62 (83) 97 11/03/19 00:00 65 11/03/19 00:00 98.3 64 21 122/67 (85) 97 11/02/19 21:00 Non-Rebreather 15.0 11/02/19 20:00 69 11/02/19 16:00 96.3 60 24 130/70 (90) 97 11/02/19 15:56 61 11/02/19 12:26 72 11/02/19 12:00 97.9 63 24 127/68 (87) 96 Height (Feet): 5 Height (Inches): 7.00 Weight (Pounds): 145 HEENT: mucous membranes moist Respiratory/Chest: other - oxygen by mask Cardiovascular: normal rate Abdomen: soft, non tender Extremities: no edema Neurologic/Psychiatric: alert, responsive Laboratory Tests Test 11/02/19 11:38 11/02/19 17:29 11/02/19 20:57 11/03/19 06:16 POC Whole Blood Glucose Pending 238 MG/DL (74-106) H 281 MG/DL (74-106) H 375 MG/DL (74-106) H Current Medications Medications (Trade) Dose Ordered Sig/Roman Route PRN Reason Start Time Stop Time Status Last Admin Dose Admin Acetaminophen (Tylenol) 500 mg Q4H PRN ORAL Mild Pain (Pain Scale 1-3) 10/29/19 00:45 11/28/19 00:44 11/02/19 09:15 Ceftriaxone Sodium 1 gm/ Dextrose 110 ml @ 220 mls/hr Q24H IVPB 11/03/19 12:00 11/10/19 11:59 11/03/19 11:25 Dexamethasone Sodium Phosphate (Decadron 10mg/ ml Inj) 6 mg Q24H IV 10/29/19 17:00 01/27/20 16:59 11/02/19 17:17 Dextrose (Dextrose 50%) 25 ml Q30M PRN IV Hypoglycemia 11/02/19 08:30 01/31/20 08:29 Dextrose (Dextrose 50%) 50 ml Q30M PRN IV Hypoglycemia 11/02/19 08:30 01/31/20 08:29 Insulin Aspart (NovoLOG) BEFORE MEALS AND HS SUBQ 10/30/19 16:30 01/28/20 16:29 11/03/19 06:18 Insulin Aspart (NovoLOG) 5 units NOVOTIAC SUBQ 11/03/19 11:50 02/01/20 11:49 Insulin Detemir (Levemir) 10 units DAILY SUBQ 11/02/19 09:00 01/31/20 08:59 11/03/19 08:49 Stas Garcia MD Nov 03, 2019 11:39
--- NOTE | 2019-11-03 11:57 | NUR ---
CASE MANAGEMENT:REVIEW SI: COVID-19 PNEUMONIA. RESPIRATORY INSUFFICIENCY. 98.2 71 18 117/65 96% 15L NRM BG 375 IS:IV ROCEPHIN QD IV DECADRON QD LEVEMIR SQ QD NOVOLOG SQ AC+HS/SS \: 2E TELE UNIT DCP: HOME WHEN STABLE PLAN: PATIENT UNABLE TO WEAN OFF OXYGEN PATIENT UNABLE TO PROVIDE MEDICAL INSURANCE INFORMATION NON-FUNDED INSURANCE PATIENT WILL NEED HOME O2
[2019-11-03] MEDS ORDERED: cefTRIAXone 1 GM in D5W 110 ML IVPB SCH (12:00)
--- NOTE | 2019-11-03 15:22 | Cardiac Electrophysiology PN ---
Assessment/Plan Assessment/Plan 1. Shortness of breath due to COVID pneumonia. S/P Remdesivir treatment. EF 60%. On Oxygen, Dexamethasone and Ceftriaxone 2. Uncontrolled diabetes. On insulin per Dr. Ochoa. 3. Mild bradycardia with HR 50s 4. PACs DW RN Subjective Subjective S/P Remdesivir Rx for Covid. In Sr/Sinus barbara Objective Last 24 Hour Vital Signs Date Time Temp Pulse Resp B/P (MAP) Pulse Ox O2 Delivery O2 Flow Rate FiO2 11/03/19 11:57 98.0 75 18 119/63 (81) 96 11/03/19 11:44 64 11/03/19 09:00 Non-Rebreather 15.0 11/03/19 08:30 91 11/03/19 08:00 98.2 71 18 117/65 (82) 96 11/03/19 04:00 79 11/03/19 04:00 98.1 61 19 126/62 (83) 97 11/03/19 00:00 65 11/03/19 00:00 98.3 64 21 122/67 (85) 97 11/02/19 21:00 Non-Rebreather 15.0 11/02/19 20:00 69 11/02/19 16:00 96.3 60 24 130/70 (90) 97 11/02/19 15:56 61 Intake and Output 11/02/19 11/03/19 18:59 06:59 Intake Total 785 ml Output Total 800 ml 600 ml Balance -15 ml -600 ml Intake Oral 480 ml IV Total 305 ml Output Urine Total 800 ml 600 ml # Voids 1 2 Laboratory Tests Test 11/02/19 17:29 11/02/19 20:57 11/03/19 06:16 POC Whole Blood Glucose 238 MG/DL (74-106) H 281 MG/DL (74-106) H 375 MG/DL (74-106) H Objective HEAD AND NECK: No JVD. LUNGS: Clear. CARDIOVASCULAR: Regular S1 and S2 with no gallop or murmur. ABDOMEN: Soft. EXTREMITIES: No pitting edema. Mohsen Epps MD Nov 03, 2019 15:22
--- NOTE | 2019-11-03 15:40 | NUR ---
NURSE NOTES:WOUND CARE NOTES:Pt presented on admission with Corns to R 1st Metatarsal, R 5ht metatarsal and L 1st metatarsal. Thickened layers of hard skin that is black in center with surrounding marginal erythema without fluctuance Lateral L 1st metatarsal. Thickened Layers of hard skin that is black in center lateral R1st metatarsal.No erythema or fluctuance noted to surrounding areas of [place]. Thickened layers of hard skin R 5th Metatarsal. No erythema or fluctuance surrounding areas of [place]. Pt complained of tenderness only when each individual area palpated. R and L Heels are both boggy with non-blanchable erythema. Pt is ambulatory ad mecca per Primary nurse . Pt was educated on wound prevention. Instructed to follow-up with Podiatry in community for foot care and to wear proper fitting shoes. Tx.Plan: Apply Cavilon Skin Barrier to Both heels. Cover each heel with Optifoam drsgs. Change every 7 days and prn. Off-load heels with Pillow while in Bed.
--- NOTE | 2019-11-03 16:40 | Pulmonology Progress Note ---
Subjective ROS Limited/Unobtainable: Yes Interval Events: None new Constitutional: Denies: fever HEENT: Repors: no symptoms Respiratory: Reports: dry cough, shortness of breath Cardiovascular: Reports: no symptoms Gastrointestinal/Abdominal: Reports: no symptoms Allergies: Coded Allergies: No Known Allergies (Unverified , 10/28/19) Objective Last 24 Hour Vital Signs Date Time Temp Pulse Resp B/P (MAP) Pulse Ox O2 Delivery O2 Flow Rate FiO2 11/03/19 16:00 98.8 60 18 119/69 (86) 98 11/03/19 11:57 98.0 75 18 119/63 (81) 96 11/03/19 11:44 64 11/03/19 09:00 Non-Rebreather 15.0 11/03/19 08:30 91 11/03/19 08:00 98.2 71 18 117/65 (82) 96 11/03/19 04:00 79 11/03/19 04:00 98.1 61 19 126/62 (83) 97 11/03/19 00:00 65 11/03/19 00:00 98.3 64 21 122/67 (85) 97 11/02/19 21:00 Non-Rebreather 15.0 11/02/19 20:00 69 Intake and Output 11/02/19 11/03/19 19:00 07:00 Intake Total 785 ml Output Total 800 ml 600 ml Balance -15 ml -600 ml Intake Oral 480 ml IV Total 305 ml Output Urine Total 800 ml 600 ml # Voids 1 2 General Appearance: no acute distress HEENT: normocephalic Respiratory: decreased breath sounds Cardiovascular: normal peripheral pulses Abdomen: normal bowel sounds Laboratory Tests 11/02/19 17:29: POC Whole Blood Glucose 238H 11/02/19 20:57: POC Whole Blood Glucose 281H 11/03/19 06:16: POC Whole Blood Glucose 375H 11/03/19 11:40: POC Whole Blood Glucose [Pending] 11/03/19 16:23: POC Whole Blood Glucose 302H Current Medications Medications (Trade) Dose Ordered Sig/Roman Route PRN Reason Start Time Stop Time Status Last Admin Dose Admin Acetaminophen (Tylenol) 500 mg Q4H PRN ORAL Mild Pain (Pain Scale 1-3) 10/29/19 00:45 11/28/19 00:44 11/02/19 09:15 Ceftriaxone Sodium 1 gm/ Sodium Chloride 110 ml @ 220 mls/hr Q24H IVPB 11/04/19 12:00 11/09/19 11:59 Dexamethasone Sodium Phosphate (Decadron 10mg/ ml Inj) 6 mg Q24H IV 10/29/19 17:00 01/27/20 16:59 11/02/19 17:17 Dextrose (Dextrose 50%) 25 ml Q30M PRN IV Hypoglycemia 11/02/19 08:30 01/31/20 08:29 Dextrose (Dextrose 50%) 50 ml Q30M PRN IV Hypoglycemia 11/02/19 08:30 01/31/20 08:29 Insulin Aspart (NovoLOG) BEFORE MEALS AND HS SUBQ 10/30/19 16:30 01/28/20 16:29 11/03/19 11:51 Insulin Aspart (NovoLOG) 5 units NOVOTIAC SUBQ 11/03/19 11:50 02/01/20 11:49 11/03/19 11:52 Insulin Detemir (Levemir) 10 units DAILY SUBQ 11/02/19 09:00 01/31/20 08:59 11/03/19 08:49 Assessment/Plan Assessment/Plan IMPRESSION: 1. Hypoxemia. 2. COVID-19 pneumonia. 3. Diabetes mellitus. DISCUSSION: Continue steroids, remdesivir, fluids. Continue nonrebreather mask or high-flow room ventilation. I will follow. Self prone ventilation recommended Dajuan Bragg Omar Syed MD Nov 03, 2019 16:40
[2019-11-03] MEDS: Acetaminophen 500mg (ES) tab ORAL PRN ×2 (16:43→21:53)
[2019-11-03] MEDS: dexAMETHasone 10mg/ml Inj IV SCH (16:43)
--- NOTE | 2019-11-03 19:20 | NUR ---
HAND-OFF: Report given to OSMAR Irene. Pt is awake and stable, no stress noted, endorsed plan of care.
[2019-11-04] VITALS (7 sets, daily range): BP systolic 98–139; BP diastolic 51–68
--- NOTE | 2019-11-04 06:42 | General Progress Note ---
Assessment/Plan Problem List: (1) Acute respiratory disease due to COVID-19 virus ICD Codes: U07.1 - COVID-19; J06.9 - Acute upper respiratory infection, unspecified SNOMED: 422813450, 717104752, 448328861 (2) Hyperglycemia ICD Codes: R73.9 - Hyperglycemia, unspecified; J06.9 - Acute upper respiratory infection, unspecified SNOMED: 64137079, 592863274, 718856339 Status: progressing Assessment/Plan: increase Levemir to 15 units bid increase Novolog to 12 units ac tid continue Novolog sliding scale ac / hs Subjective Allergies: Coded Allergies: No Known Allergies (Unverified , 10/28/19) Subjective events noted glucose values are very high in 300 range despite addition of scheduled Levemir and Novolog Item Value Date Time Bedside Blood Glucose 390 mg/dl H 11/03/19 2203 Bedside Blood Glucose 302 mg/dl H 11/03/19 1642 Bedside Blood Glucose 301 mg/dl H 11/03/19 1152 Bedside Blood Glucose 375 mg/dl H 11/03/19 0849 Bedside Blood Glucose 375 mg/dl H 11/03/19 0623 Objective Last 24 Hour Vital Signs Date Time Temp Pulse Resp B/P (MAP) Pulse Ox O2 Delivery O2 Flow Rate FiO2 11/04/19 04:00 97.8 59 18 98/51 (67) 99 11/04/19 04:00 58 11/04/19 00:00 98.1 58 17 120/58 (78) 98 11/04/19 00:00 74 11/03/19 22:23 98.8 11/03/19 21:00 Non-Rebreather 15.0 11/03/19 20:01 98.2 62 20 117/61 (79) 99 11/03/19 20:00 98.1 58 17 120/58 (78) 98 11/03/19 20:00 65 11/03/19 16:00 98.8 60 18 119/69 (86) 98 11/03/19 15:41 63 11/03/19 11:57 98.0 75 18 119/63 (81) 96 11/03/19 11:44 64 11/03/19 09:00 Non-Rebreather 15.0 11/03/19 08:30 91 11/03/19 08:00 98.2 71 18 117/65 (82) 96 Intake and Output 11/03/19 11/04/19 19:00 07:00 Intake Total 1080 ml 360 ml Output Total 1400 ml 800 ml Balance -320 ml -440 ml Intake Oral 970 ml 360 ml IV Total 110 ml Output Urine Total 1400 ml 800 ml # Voids 4 Laboratory Tests 11/03/19 11:40: POC Whole Blood Glucose [Pending] 11/03/19 16:23: POC Whole Blood Glucose 302H 11/03/19 22:00: POC Whole Blood Glucose 390H Height (Feet): 5 Height (Inches): 7.00 Weight (Pounds): 145 Objective Current Medications Medications (Trade) Dose Ordered Sig/Roman Route PRN Reason Start Time Stop Time Status Last Admin Dose Admin Acetaminophen (Tylenol) 500 mg Q4H PRN ORAL Mild Pain (Pain Scale 1-3) 10/29/19 00:45 11/28/19 00:44 11/03/19 21:53 Ceftriaxone Sodium 1 gm/ Sodium Chloride 110 ml @ 220 mls/hr Q24H IVPB 11/04/19 12:00 11/09/19 11:59 Dexamethasone Sodium Phosphate (Decadron 10mg/ ml Inj) 6 mg Q24H IV 10/29/19 17:00 01/27/20 16:59 11/03/19 16:43 Dextrose (Dextrose 50%) 25 ml Q30M PRN IV Hypoglycemia 11/02/19 08:30 01/31/20 08:29 Dextrose (Dextrose 50%) 50 ml Q30M PRN IV Hypoglycemia 11/02/19 08:30 01/31/20 08:29 Insulin Aspart (NovoLOG) BEFORE MEALS AND HS SUBQ 10/30/19 16:30 01/28/20 16:29 11/03/19 22:03 Insulin Aspart (NovoLOG) 5 units NOVOTIAC SUBQ 11/03/19 11:50 02/01/20 11:49 11/03/19 16:42 Insulin Detemir (Levemir) 10 units DAILY SUBQ 11/02/19 09:00 01/31/20 08:59 11/03/19 08:49 Aram Ochoa MD Nov 04, 2019 06:42
--- NOTE | 2019-11-04 07:27 | NUR ---
HAND-OFF: Report given to OSMAR Bennett.
[2019-11-04] MEDS: NovoLOG Insulin Flexpen SUBQ SCH ×7 (07:35→20:47)
--- NOTE | 2019-11-04 08:28 | NUR ---
NURSE NOTES: Report received from Maria Victoria PRASAD. Patient is observed in bed, awake, alert, oriented, and able to make needs known. Respiratory even and unlabored. Patient is on 15L NRB, saturating at 97%. Lungs are clear to auscultate. Bed is in lowest position with side rails up x2 and brakes are engaged. Bed alarm is on. Encouraged patient to use call light when in need of assistance, pt verbalized understanding.
[2019-11-04] MEDS: Levemir Flexpen SUBQ SCH ×2 (09:14→17:49)
--- NOTE | 2019-11-04 09:54 | Pulmonology Progress Note ---
Subjective ROS Limited/Unobtainable: Yes Interval Events: None new Constitutional: Denies: fever HEENT: Repors: no symptoms Respiratory: Reports: dry cough, shortness of breath Cardiovascular: Reports: no symptoms Gastrointestinal/Abdominal: Reports: no symptoms Allergies: Coded Allergies: No Known Allergies (Unverified , 10/28/19) Objective Last 24 Hour Vital Signs Date Time Temp Pulse Resp B/P (MAP) Pulse Ox O2 Delivery O2 Flow Rate FiO2 11/04/19 08:46 Non-Rebreather 15.0 11/04/19 08:44 97.2 80 20 115/60 (78) 97 11/04/19 07:50 64 11/04/19 04:00 97.8 59 18 98/51 (67) 99 11/04/19 04:00 58 11/04/19 00:00 98.1 58 17 120/58 (78) 98 11/04/19 00:00 74 11/03/19 22:23 98.8 11/03/19 21:00 Non-Rebreather 15.0 11/03/19 20:01 98.2 62 20 117/61 (79) 99 11/03/19 20:00 98.1 58 17 120/58 (78) 98 11/03/19 20:00 65 11/03/19 16:00 98.8 60 18 119/69 (86) 98 11/03/19 15:41 63 11/03/19 11:57 98.0 75 18 119/63 (81) 96 11/03/19 11:44 64 Intake and Output 11/03/19 11/04/19 19:00 07:00 Intake Total 1080 ml 360 ml Output Total 1400 ml 800 ml Balance -320 ml -440 ml Intake Oral 970 ml 360 ml IV Total 110 ml Output Urine Total 1400 ml 800 ml # Voids 4 General Appearance: no acute distress HEENT: normocephalic Respiratory: decreased breath sounds Cardiovascular: normal peripheral pulses Abdomen: normal bowel sounds Laboratory Tests 11/03/19 11:40: POC Whole Blood Glucose [Pending] 11/03/19 16:23: POC Whole Blood Glucose 302H 11/03/19 22:00: POC Whole Blood Glucose 390H 11/04/19 07:06: POC Whole Blood Glucose 352H 11/04/19 09:11: POC Whole Blood Glucose 333H Current Medications Medications (Trade) Dose Ordered Sig/Roman Route PRN Reason Start Time Stop Time Status Last Admin Dose Admin Acetaminophen (Tylenol) 500 mg Q4H PRN ORAL Mild Pain (Pain Scale 1-3) 10/29/19 00:45 11/28/19 00:44 11/03/19 21:53 Ceftriaxone Sodium 1 gm/ Sodium Chloride 110 ml @ 220 mls/hr Q24H IVPB 11/04/19 12:00 11/09/19 11:59 Dexamethasone Sodium Phosphate (Decadron 10mg/ ml Inj) 6 mg Q24H IV 10/29/19 17:00 01/27/20 16:59 11/03/19 16:43 Dextrose (Dextrose 50%) 25 ml Q30M PRN IV Hypoglycemia 11/02/19 08:30 01/31/20 08:29 Dextrose (Dextrose 50%) 50 ml Q30M PRN IV Hypoglycemia 11/02/19 08:30 01/31/20 08:29 Insulin Aspart (NovoLOG) BEFORE MEALS AND HS SUBQ 10/30/19 16:30 01/28/20 16:29 11/04/19 07:35 Insulin Aspart (NovoLOG) 12 units NOVOTIAC SUBQ 11/04/19 06:45 02/01/20 11:49 11/04/19 07:36 Insulin Detemir (Levemir) 15 units BID SUBQ 11/04/19 09:00 01/31/20 08:59 11/04/19 09:14 Assessment/Plan Assessment/Plan IMPRESSION: 1. Hypoxemia. 2. COVID-19 pneumonia. 3. Diabetes mellitus. DISCUSSION: Continue steroids, remdesivir, fluids. Continue nonrebreather mask. I will follow. Self prone ventilation recommended Dajuan Bragg Omar Syed MD Nov 04, 2019 09:54
--- NOTE | 2019-11-04 10:01 | CDS Physician Query ---
Clarification is required for compliance, coding accuracy, and to reflect severity of illness for this patient Dear Dr. Ahsan Mitchell Date 11/04/2019 Foreign Language Teacher/CDS name: Gabrielle Bullock Clinical documentation clarification states: HNP: Patient is basically COVID positive. Admitted for COVID positive pneumonia, respiratory insufficiency, hypoxia on 6 L of nasal cannula initially 11/03 pulse ox 97 on 15 L, p/f ratio based on this = 110/85% = 129 (<200 indicative of pO2 <40 on room air) O2 flow rate through admission: 6-15 L, on 15 L non-rebreather as of 11/03 Please clarify if the patient had any of the following conditions based on the above clinical findings: [] Acute Respiratory Failure [] Chronic Respiratory Failure [] Acute on Chronic Respiratory Failure [] Acute Respiratory Distress [] Other: [] Unable to Determined Present on Admission: [] Yes [] No [] Clinically Undetermined Physician signature Date Please also document in your Progress Notes and/or Discharge Summary and indicate if the condition was present on admission. LINDSEYD
--- NOTE | 2019-11-04 10:37 | Infectious Diseases Prog Note ---
Assessment/Plan Assessment/Plan antibiotics : ceftriaxone, dexamethasone A 1. COVID 19 pneumonia on 15 liters O2, saturation 96 percent s/p remdesivir 2. diabetes mellitus P 1. continue ceftriaxone 2. continue dexamethasone day 8 3. will follow up cultures Subjective ROS Limited/Unobtainable: Yes Allergies: Coded Allergies: No Known Allergies (Unverified , 10/28/19) Objective Last 24 Hour Vital Signs Date Time Temp Pulse Resp B/P (MAP) Pulse Ox O2 Delivery O2 Flow Rate FiO2 11/04/19 08:46 Non-Rebreather 15.0 11/04/19 08:44 97.2 80 20 115/60 (78) 97 11/04/19 07:50 64 11/04/19 04:00 97.8 59 18 98/51 (67) 99 11/04/19 04:00 58 11/04/19 00:00 98.1 58 17 120/58 (78) 98 11/04/19 00:00 74 11/03/19 22:23 98.8 11/03/19 21:00 Non-Rebreather 15.0 11/03/19 20:01 98.2 62 20 117/61 (79) 99 11/03/19 20:00 98.1 58 17 120/58 (78) 98 11/03/19 20:00 65 11/03/19 16:00 98.8 60 18 119/69 (86) 98 11/03/19 15:41 63 11/03/19 11:57 98.0 75 18 119/63 (81) 96 11/03/19 11:44 64 Height (Feet): 5 Height (Inches): 7.00 Weight (Pounds): 145 Laboratory Tests Test 11/03/19 11:40 11/03/19 16:23 11/03/19 22:00 11/04/19 07:06 POC Whole Blood Glucose Pending 302 MG/DL (74-106) H 390 MG/DL (74-106) H 352 MG/DL (74-106) H Test 11/04/19 09:11 POC Whole Blood Glucose 333 MG/DL (74-106) H Current Medications Medications (Trade) Dose Ordered Sig/Roman Route PRN Reason Start Time Stop Time Status Last Admin Dose Admin Acetaminophen (Tylenol) 500 mg Q4H PRN ORAL Mild Pain (Pain Scale 1-3) 7/15/20 00:45 11/28/19 00:44 11/03/19 21:53 Ceftriaxone Sodium 1 gm/ Sodium Chloride 110 ml @ 220 mls/hr Q24H IVPB 11/04/19 12:00 11/09/19 11:59 Dexamethasone Sodium Phosphate (Decadron 10mg/ ml Inj) 6 mg Q24H IV 10/29/19 17:00 01/27/20 16:59 11/03/19 16:43 Dextrose (Dextrose 50%) 25 ml Q30M PRN IV Hypoglycemia 11/02/19 08:30 01/31/20 08:29 Dextrose (Dextrose 50%) 50 ml Q30M PRN IV Hypoglycemia 11/02/19 08:30 01/31/20 08:29 Insulin Aspart (NovoLOG) BEFORE MEALS AND HS SUBQ 10/30/19 16:30 01/28/20 16:29 11/04/19 07:35 Insulin Aspart (NovoLOG) 12 units NOVOTIAC SUBQ 11/04/19 06:45 02/01/20 11:49 11/04/19 07:36 Insulin Detemir (Levemir) 15 units BID SUBQ 11/04/19 09:00 01/31/20 08:59 11/04/19 09:14 Carlita Gonsalez MD Nov 04, 2019 10:37
--- NOTE | 2019-11-04 11:23 | Cardiac Electrophysiology PN ---
Assessment/Plan Assessment/Plan 1. Shortness of breath due to COVID pneumonia. S/P Remdesivir treatment. EF 60%. On Oxygen, Dexamethasone and Ceftriaxone 2. Uncontrolled diabetes. On insulin per Dr. Ochoa. 3. Mild bradycardia with HR 50s 4. PACs DW RN Subjective Subjective S/P Remdesivir Rx for Covid. In Sr/Sinus barbara. In Covid isolation. VSS Objective Last 24 Hour Vital Signs Date Time Temp Pulse Resp B/P (MAP) Pulse Ox O2 Delivery O2 Flow Rate FiO2 11/04/19 08:46 Non-Rebreather 15.0 11/04/19 08:44 97.2 80 20 115/60 (78) 97 11/04/19 07:50 64 11/04/19 04:00 97.8 59 18 98/51 (67) 99 11/04/19 04:00 58 11/04/19 00:00 98.1 58 17 120/58 (78) 98 11/04/19 00:00 74 11/03/19 22:23 98.8 11/03/19 21:00 Non-Rebreather 15.0 11/03/19 20:01 98.2 62 20 117/61 (79) 99 11/03/19 20:00 98.1 58 17 120/58 (78) 98 11/03/19 20:00 65 11/03/19 16:00 98.8 60 18 119/69 (86) 98 11/03/19 15:41 63 11/03/19 11:57 98.0 75 18 119/63 (81) 96 11/03/19 11:44 64 Intake and Output 11/03/19 11/04/19 19:00 07:00 Intake Total 1080 ml 360 ml Output Total 1400 ml 800 ml Balance -320 ml -440 ml Intake Oral 970 ml 360 ml IV Total 110 ml Output Urine Total 1400 ml 800 ml # Voids 4 Laboratory Tests Test 11/03/19 11:40 11/03/19 16:23 11/03/19 22:00 11/04/19 07:06 POC Whole Blood Glucose Pending 302 MG/DL (74-106) H 390 MG/DL (74-106) H 352 MG/DL (74-106) H Test 11/04/19 09:11 POC Whole Blood Glucose 333 MG/DL (74-106) H Objective HEAD AND NECK: No JVD. LUNGS: Clear. CARDIOVASCULAR: Regular S1 and S2 with no gallop or murmur. ABDOMEN: Soft. EXTREMITIES: No pitting edema. Mohsen Epps MD Nov 04, 2019 11:23
[2019-11-04] MEDS: cefTRIAXone 1 GM in NS 110 ML IVPB SCH (12:17)
--- NOTE | 2019-11-04 14:34 | NUR ---
CASE MANAGEMENT:REVIEW 11/04/19 SI: COVID-19 PNEUMONIA. RESPIRATORY INSUFFICIENCY. DM . SINUS MARIANGEL 97.2 80 20 115/60 97% 15L NRM BG 333 IS:IV ROCEPHIN QD IV DECADRON QD LEVEMIR SQ QD NOVOLOG SQ AC+HS/SS \: 2E TELE UNIT DCP: HOME WHEN STABLE PLAN: CONTINUE TO WEAN OFF NON REBREATHER MASK WEANED DOWN TO 10L NON REBREATHER PER NURSE PER PULMONARY MD PATIENT SELF PRONE VENTILATION PER ID CONT DECADRON FOR 8 MORE DAYS
[2019-11-04] MEDS: dexAMETHasone 10mg/ml Inj IV SCH (17:43)
--- NOTE | 2019-11-04 19:15 | NUR ---
NURSE NOTES: Patient received from Sabrina PRASAD. Patient in stable condition. Alert and oriented x4. IV site patent and intact 22G at Left forearm. On Non rebreather mask 10L saturating well. Vital signs stable. Bed in lowest position and locked. Call light and bedside table within reach. Will continue plan of care.
--- NOTE | 2019-11-04 21:07 | General Progress Note ---
Assessment/Plan Problem List: (1) Hyperglycemia ICD Codes: R73.9 - Hyperglycemia, unspecified; J06.9 - Acute upper respiratory infection, unspecified SNOMED: 28493956, 578523695, 383784487 (2) Acute respiratory disease due to COVID-19 virus ICD Codes: U07.1 - COVID-19; J06.9 - Acute upper respiratory infection, unspecified SNOMED: 574048135, 593071826, 379395706 Status: progressing Assessment/Plan: reviewed chart and labs afebrile covid positive pna elevated sugar oxygen prn positive blood cx Subjective ROS Limited/Unobtainable: Yes Allergies: Coded Allergies: No Known Allergies (Unverified , 10/28/19) Objective Last 24 Hour Vital Signs Date Time Temp Pulse Resp B/P (MAP) Pulse Ox O2 Delivery O2 Flow Rate FiO2 11/04/19 15:53 63 11/04/19 15:39 96.3 84 20 116/68 (84) 99 11/04/19 11:56 97.7 80 20 117/61 (79) 97 11/04/19 11:42 61 11/04/19 08:46 Non-Rebreather 15.0 11/04/19 08:44 97.2 80 20 115/60 (78) 97 11/04/19 07:50 64 11/04/19 04:00 97.8 59 18 98/51 (67) 99 11/04/19 04:00 58 11/04/19 00:00 98.1 58 17 120/58 (78) 98 11/04/19 00:00 74 11/03/19 22:23 98.8 Intake and Output 11/03/19 11/04/19 19:00 07:00 Intake Total 1080 ml 360 ml Output Total 1400 ml 800 ml Balance -320 ml -440 ml Intake Oral 970 ml 360 ml IV Total 110 ml Output Urine Total 1400 ml 800 ml # Voids 4 Laboratory Tests 11/03/19 22:00: POC Whole Blood Glucose 390H 11/04/19 07:06: POC Whole Blood Glucose 352H 11/04/19 09:11: POC Whole Blood Glucose 333H 11/04/19 17:02: POC Whole Blood Glucose 62L 11/04/19 20:43: POC Whole Blood Glucose 299H Height (Feet): 5 Height (Inches): 7.00 Weight (Pounds): 145 Nesha Damon MD Nov 04, 2019 21:06
[2019-11-05 04:00] VITALS: BP 125/66
[2019-11-05] MEDS: NovoLOG Insulin Flexpen SUBQ SCH ×7 (06:17→21:00)
[2019-11-05 06:41] LABS: HEMATOCRIT 47.3 % (42.0-52.0); HEMOGLOBIN 15.3 G/DL (14.2-18.0); MEAN CORPUSCULAR VOLUME 86 FL (80-99); PLATELET COUNT 189 K/UL (150-450); RED BLOOD COUNT 5.47 M/UL (4.70-6.10); RED CELL DISTRIBUTION WIDTH 11.4 % (11.6-14.8); WHITE BLOOD COUNT 9.5 K/UL (4.8-10.8)
[2019-11-05 07:08] LABS: ALANINE AMINOTRANSFERASE 37 U/L (12-78); ALBUMIN 2.1 G/DL (3.4-5.0); ALBUMIN/GLOBULIN RATIO 0.5 (1.0-2.7); ALKALINE PHOSPHATASE 101 U/L (46-116); ANION GAP 7 mmol/L (5-15); ASPARTATE AMINO TRANSFERASE 22 U/L (15-37); BILIRUBIN,TOTAL 0.5 MG/DL (0.2-1.0); BLOOD UREA NITROGEN 23 mg/dL (7-18); CALCIUM 8.3 MG/DL (8.5-10.1); CARBON DIOXIDE 29 MMOL/L (21-32); CHLORIDE 100 MMOL/L (98-107); CREATININE 0.7 MG/DL (0.55-1.30); POTASSIUM 4.6 MMOL/L (3.5-5.1); SODIUM 136 MMOL/L (136-145)
--- NOTE | 2019-11-05 07:16 | NUR ---
HAND-OFF: Report given to Sanjana RN. Patient in stable condition. Endorsed plan of care.
--- NOTE | 2019-11-05 07:20 | NUR ---
NURSE NOTES: Received report from Antonio/RN. Patient awake and eating breakfast in bed. Patient is on 10L non-rebreather mask. No acute distress or SOB noted. IV on right wrist 22G and left FA 22G intact and patent. Able to make needs know, denied pain at this time. Call light within reach, encouraged to use call light when needed. bed in low position and locked. Will continue plan of care.
[2019-11-05 08:00] VITALS: BP 96/61
[2019-11-05] MEDS: Levemir Flexpen SUBQ SCH ×2 (08:55→21:24)
--- NOTE | 2019-11-05 08:57 | NUR ---
CASE MANAGEMENT:REVIEW 11/05/19 SI: COVID-19 PNEUMONIA. RESPIRATORY INSUFFICIENCY. UNCONTROLLED DM . SINUS MARIANGEL/SINUS RHYTHM 97.7 72 22 96/61 98% 10L NRM BUN 23 BG 272 CA+ 8.3 ALB 2.1 IS:IV ROCEPHIN QD IV DECADRON QD LEVEMIR SQ BID NOVOLOG SQ AC+HS/SS \: 2E TELE UNIT DCP: HOME WHEN STABLE PLAN: CONTINUE TO WEAN OFF NON REBREATHER MASK WEANED DOWN TO 10L NON REBREATHER STABLE ENCOURAGE SELF PRONE VENTILATION Addendum: 11/05/19 at 1144 by JESSICA BHARDWAJ LVN ~DOWNGRADE TO MED SURG STATUS
--- NOTE | 2019-11-05 11:38 | Cardiac Electrophysiology PN ---
Assessment/Plan Assessment/Plan 1. COVID pneumonia. S/P Remdesivir treatment. EF 60%. Not Clinical CHF On Oxygen, Dexamethasone and Ceftriaxone 2. Uncontrolled diabetes. On insulin per Dr. Ochoa. 3. Mild bradycardia with HR 50s 4. PACs DW RN Subjective Subjective S/P Remdesivir Rx for Covid. In SR/Sinus barbara. In Covid isolation. Comfortable in NAD Objective Last 24 Hour Vital Signs Date Time Temp Pulse Resp B/P (MAP) Pulse Ox O2 Delivery O2 Flow Rate FiO2 11/05/19 09:00 Non-Rebreather 10.0 11/05/19 08:00 74 11/05/19 08:00 97.7 72 22 96/61 (73) 98 11/05/19 04:00 98.5 63 19 125/66 (85) 97 11/05/19 04:00 64 11/05/19 00:00 65 11/04/19 23:56 98.6 68 20 124/68 (86) 96 11/04/19 21:00 Non-Rebreather 10.0 11/04/19 20:00 66 11/04/19 20:00 98.9 68 20 139/62 (87) 96 11/04/19 15:53 63 11/04/19 15:39 96.3 84 20 116/68 (84) 99 11/04/19 11:56 97.7 80 20 117/61 (79) 97 11/04/19 11:42 61 Intake and Output 11/04/19 11/05/19 19:00 07:00 Intake Total 740 ml 60 ml Output Total 1350 ml 180 ml Balance -610 ml -120 ml Intake Oral 740 ml 60 ml Output Urine Total 1350 ml 180 ml # Voids 2 Laboratory Tests Test 11/04/19 17:02 11/04/19 20:43 11/05/19 04:00 11/05/19 08:33 POC Whole Blood Glucose 62 MG/DL (74-106) L 299 MG/DL (74-106) H Pending White Blood Count 9.5 K/UL (4.8-10.8) Red Blood Count 5.47 M/UL (4.70-6.10) Hemoglobin 15.3 G/DL (14.2-18.0) Hematocrit 47.3 % (42.0-52.0) Mean Corpuscular Volume 86 FL (80-99) Mean Corpuscular Hemoglobin 27.9 PG (27.0-31.0) Mean Corpuscular Hemoglobin Concent 32.3 G/DL (32.0-36.0) Red Cell Distribution Width 11.4 % (11.6-14.8) L Platelet Count 189 K/UL (150-450) Mean Platelet Volume 7.6 FL (6.5-10.1) Neutrophils (%) (Auto) % (45.0-75.0) Lymphocytes (%) (Auto) % (20.0-45.0) Monocytes (%) (Auto) % (1.0-10.0) Eosinophils (%) (Auto) % (0.0-3.0) Basophils (%) (Auto) % (0.0-2.0) Differential Total Cells Counted 100 Neutrophils % (Manual) 89 % (45-75) H Lymphocytes % (Manual) 6 % (20-45) L Monocytes % (Manual) 5 % (1-10) Eosinophils % (Manual) 0 % (0-3) Basophils % (Manual) 0 % (0-2) Band Neutrophils 0 % (0-8) Platelet Estimate Adequate Platelet Morphology Normal Red Blood Cell Morphology Normal Sodium Level 136 MMOL/L (136-145) Potassium Level 4.6 MMOL/L (3.5-5.1) Chloride Level 100 MMOL/L (98-107) Carbon Dioxide Level 29 MMOL/L (21-32) Anion Gap 7 mmol/L (5-15) Blood Urea Nitrogen 23 mg/dL (7-18) H Creatinine 0.7 MG/DL (0.55-1.30) Estimat Glomerular Filtration Rate > 60 mL/min (>60) Glucose Level 272 MG/DL (74-106) H Calcium Level 8.3 MG/DL (8.5-10.1) L Total Bilirubin 0.5 MG/DL (0.2-1.0) Aspartate Amino Transf (AST/SGOT) 22 U/L (15-37) Alanine Aminotransferase (ALT/SGPT) 37 U/L (12-78) Alkaline Phosphatase 101 U/L (46-116) Total Protein 6.5 G/DL (6.4-8.2) Albumin 2.1 G/DL (3.4-5.0) L Globulin 4.4 g/dL Albumin/Globulin Ratio 0.5 (1.0-2.7) L Objective HEAD AND NECK: No JVD. LUNGS: Clear. CARDIOVASCULAR: Regular S1 and S2 with no gallop or murmur. ABDOMEN: Soft. EXTREMITIES: No pitting edema. Mohsen Epps MD Nov 05, 2019 11:38
--- NOTE | 2019-11-05 11:46 | NUR ---
RD ASSESSMENT & RECOMMENDATIONS SEE CARE ACTIVITY FOR COMPLETE ASSESSMENT DAILY ESTIMATED NEEDS: Needs based on Pulmonary, DM 66kg 25-30 kcals/kg 3931-1697 total kcals 1-1.5 g protein/kg 66-99 g total protein 25-30 mL/kg 5642-0232 total fluid mLs NUTRITION DIAGNOSIS: Altered nutrition related lab values r/t diabetes as evidenced by A1C 10.9, BG on adm 3-400's, now improved. CURRENT DIET:CCHO Med ms finely chopped PO DIET RECOMMENDATIONS: CCHO LOW / texture per TOWER WATCHMAN + 1 carb/ high pro snack in b/w meals ADDITIONAL RECOMMENDATIONS: 1) Obtain a calibrated bed scale wt as able 2) Diet recs as above for glycemic control 3) Add snacks in b/w meals, 1 carb/ high pro as needed -> Encourage HS snack to prevent am hypoglycemia 4) Consider T[employer] WATCHMAN eval for texture upgrade 5) Check BG 1hr prior to each meal to monitor for hypoglycemia 6) Brandan BID for skin integrity
[2019-11-05 12:00] VITALS: BP 111/67
[2019-11-05] MEDS: cefTRIAXone 1 GM in NS 110 ML IVPB SCH (12:05)
--- NOTE | 2019-11-05 12:38 | General Progress Note ---
Assessment/Plan Problem List: (1) Acute respiratory disease due to COVID-19 virus ICD Codes: U07.1 - COVID-19; J06.9 - Acute upper respiratory infection, unspecified SNOMED: 716185731, 090250581, 492422094 (2) Hyperglycemia ICD Codes: R73.9 - Hyperglycemia, unspecified; J06.9 - Acute upper respiratory infection, unspecified SNOMED: 32596102, 684046317, 746196232 Status: progressing Assessment/Plan: reduce Levemir to 12 units bid reduce Novolog to 8 units ac tid continue Novolog sliding scale ac / hs Subjective Allergies: Coded Allergies: No Known Allergies (Unverified , 10/28/19) Subjective events noted glucose values improved Item Value Date Time Bedside Blood Glucose 116 mg/dl 11/05/19 1150 Bedside Blood Glucose 176 mg/dl H 11/05/19 0855 Bedside Blood Glucose 238 mg/dl H 11/05/19 0618 Bedside Blood Glucose 299 mg/dl H 11/04/19 2100 Objective Last 24 Hour Vital Signs Date Time Temp Pulse Resp B/P (MAP) Pulse Ox O2 Delivery O2 Flow Rate FiO2 11/05/19 12:00 97.7 65 20 111/67 (82) 97 11/05/19 09:00 Non-Rebreather 10.0 11/05/19 08:00 74 11/05/19 08:00 97.7 72 22 96/61 (73) 98 11/05/19 04:00 98.5 63 19 125/66 (85) 97 11/05/19 04:00 64 11/05/19 00:00 65 11/04/19 23:56 98.6 68 20 124/68 (86) 96 11/04/19 21:00 Non-Rebreather 10.0 11/04/19 20:00 66 11/04/19 20:00 98.9 68 20 139/62 (87) 96 11/04/19 15:53 63 11/04/19 15:39 96.3 84 20 116/68 (84) 99 Intake and Output 11/04/19 11/05/19 18:59 06:59 Intake Total 740 ml 60 ml Output Total 1350 ml 180 ml Balance -610 ml -120 ml Intake Oral 740 ml 60 ml Output Urine Total 1350 ml 180 ml # Voids 2 Laboratory Tests 11/04/19 17:02: POC Whole Blood Glucose 62L 11/04/19 20:43: POC Whole Blood Glucose 299H 11/05/19 04:00: White Blood Count 9.5, Red Blood Count 5.47, Hemoglobin 15.3, Hematocrit 47.3, Mean Corpuscular Volume 86, Mean Corpuscular Hemoglobin 27.9, Mean Corpuscular Hemoglobin Concent 32.3, Red Cell Distribution Width 11.4L, Platelet Count 189, Mean Platelet Volume 7.6, Neutrophils (%) (Auto) , Lymphocytes (%) (Auto) , Monocytes (%) (Auto) , Eosinophils (%) (Auto) , Basophils (%) (Auto) , Differential Total Cells Counted 100, Neutrophils % (Manual) 89H, Lymphocytes % (Manual) 6L, Monocytes % (Manual) 5, Eosinophils % (Manual) 0, Basophils % ( Manual) 0, Band Neutrophils 0, Platelet Estimate Adequate, Platelet Morphology Normal, Red Blood Cell Morphology Normal, Sodium Level 136, Potassium Level 4.6 , Chloride Level 100, Carbon Dioxide Level 29, Anion Gap 7, Blood Urea Nitrogen 23H, Creatinine 0.7, Estimat Glomerular Filtration Rate > 60, Glucose Level 272H , Calcium Level 8.3L, Total Bilirubin 0.5, Aspartate Amino Transf (AST/SGOT) 22 , Alanine Aminotransferase (ALT/SGPT) 37, Alkaline Phosphatase 101, Total Protein 6.5, Albumin 2.1L, Globulin 4.4, Albumin/Globulin Ratio 0.5L 11/05/19 08:33: POC Whole Blood Glucose [Pending] 11/05/19 12:10: POC Whole Blood Glucose 116H Height (Feet): 5 Height (Inches): 7.00 Weight (Pounds): 143 Objective Current Medications Medications (Trade) Dose Ordered Sig/Roman Route PRN Reason Start Time Stop Time Status Last Admin Dose Admin Acetaminophen (Tylenol) 500 mg Q4H PRN ORAL Mild Pain (Pain Scale 1-3) 10/29/19 00:45 11/28/19 00:44 11/03/19 21:53 Ceftriaxone Sodium 1 gm/ Sodium Chloride 110 ml @ 220 mls/hr Q24H IVPB 11/04/19 12:00 11/09/19 11:59 11/05/19 12:05 Dexamethasone Sodium Phosphate (Decadron 10mg/ ml Inj) 6 mg Q24H IV 10/29/19 17:00 01/27/20 16:59 11/04/19 17:43 Dextrose (Dextrose 50%) 25 ml Q30M PRN IV Hypoglycemia 11/02/19 08:30 01/31/20 08:29 Dextrose (Dextrose 50%) 50 ml Q30M PRN IV Hypoglycemia 11/02/19 08:30 01/31/20 08:29 Insulin Aspart (NovoLOG) BEFORE MEALS AND HS SUBQ 10/30/19 16:30 01/28/20 16:29 11/05/19 06:17 Insulin Aspart (NovoLOG) 12 units NOVOTIAC SUBQ 11/04/19 06:45 02/01/20 11:49 11/05/19 06:18 Insulin Detemir (Levemir) 15 units BID SUBQ 11/04/19 09:00 01/31/20 08:59 11/05/19 08:55 Aram Ochoa MD Nov 05, 2019 12:38
--- NOTE | 2019-11-05 12:55 | Infectious Diseases Prog Note ---
Assessment/Plan Assessment/Plan IMPRESSION: COVID-19 pneumonia, worsening CXR Hypoxemia, Uncontrolled diabetes mellitus, Hyponatremia. RECOMMENDATION: Finished remdesivir Continue dexamethasone & Rocephin Case was D/W RN Subjective ROS Limited/Unobtainable: Yes Constitutional: Denies: fever Respiratory: Denies: dry cough, productive cough Allergies: Coded Allergies: No Known Allergies (Unverified , 10/28/19) Objective Last 24 Hour Vital Signs Date Time Temp Pulse Resp B/P (MAP) Pulse Ox O2 Delivery O2 Flow Rate FiO2 11/05/19 12:00 97.7 65 20 111/67 (82) 97 11/05/19 12:00 65 11/05/19 09:00 Non-Rebreather 10.0 11/05/19 08:00 74 11/05/19 08:00 97.7 72 22 96/61 (73) 98 11/05/19 04:00 98.5 63 19 125/66 (85) 97 11/05/19 04:00 64 11/05/19 00:00 65 11/04/19 23:56 98.6 68 20 124/68 (86) 96 11/04/19 21:00 Non-Rebreather 10.0 11/04/19 20:00 66 11/04/19 20:00 98.9 68 20 139/62 (87) 96 11/04/19 15:53 63 11/04/19 15:39 96.3 84 20 116/68 (84) 99 Height (Feet): 5 Height (Inches): 7.00 Weight (Pounds): 143 HEENT: mucous membranes moist Respiratory/Chest: other - oxygen by rebreathing mask Cardiovascular: normal rate Abdomen: soft, non tender Extremities: no edema Neurologic/Psychiatric: alert, responsive Laboratory Tests Test 11/04/19 17:02 11/04/19 20:43 11/05/19 04:00 11/05/19 08:33 POC Whole Blood Glucose 62 MG/DL (74-106) L 299 MG/DL (74-106) H Pending White Blood Count 9.5 K/UL (4.8-10.8) Red Blood Count 5.47 M/UL (4.70-6.10) Hemoglobin 15.3 G/DL (14.2-18.0) Hematocrit 47.3 % (42.0-52.0) Mean Corpuscular Volume 86 FL (80-99) Mean Corpuscular Hemoglobin 27.9 PG (27.0-31.0) Mean Corpuscular Hemoglobin Concent 32.3 G/DL (32.0-36.0) Red Cell Distribution Width 11.4 % (11.6-14.8) L Platelet Count 189 K/UL (150-450) Mean Platelet Volume 7.6 FL (6.5-10.1) Neutrophils (%) (Auto) % (45.0-75.0) Lymphocytes (%) (Auto) % (20.0-45.0) Monocytes (%) (Auto) % (1.0-10.0) Eosinophils (%) (Auto) % (0.0-3.0) Basophils (%) (Auto) % (0.0-2.0) Differential Total Cells Counted 100 Neutrophils % (Manual) 89 % (45-75) H Lymphocytes % (Manual) 6 % (20-45) L Monocytes % (Manual) 5 % (1-10) Eosinophils % (Manual) 0 % (0-3) Basophils % (Manual) 0 % (0-2) Band Neutrophils 0 % (0-8) Platelet Estimate Adequate Platelet Morphology Normal Red Blood Cell Morphology Normal Sodium Level 136 MMOL/L (136-145) Potassium Level 4.6 MMOL/L (3.5-5.1) Chloride Level 100 MMOL/L (98-107) Carbon Dioxide Level 29 MMOL/L (21-32) Anion Gap 7 mmol/L (5-15) Blood Urea Nitrogen 23 mg/dL (7-18) H Creatinine 0.7 MG/DL (0.55-1.30) Estimat Glomerular Filtration Rate > 60 mL/min (>60) Glucose Level 272 MG/DL (74-106) H Calcium Level 8.3 MG/DL (8.5-10.1) L Total Bilirubin 0.5 MG/DL (0.2-1.0) Aspartate Amino Transf (AST/SGOT) 22 U/L (15-37) Alanine Aminotransferase (ALT/SGPT) 37 U/L (12-78) Alkaline Phosphatase 101 U/L (46-116) Total Protein 6.5 G/DL (6.4-8.2) Albumin 2.1 G/DL (3.4-5.0) L Globulin 4.4 g/dL Albumin/Globulin Ratio 0.5 (1.0-2.7) L Test 11/05/19 12:10 POC Whole Blood Glucose 116 MG/DL (74-106) H Current Medications Medications (Trade) Dose Ordered Sig/Orman Route PRN Reason Start Time Stop Time Status Last Admin Dose Admin Acetaminophen (Tylenol) 500 mg Q4H PRN ORAL Mild Pain (Pain Scale 1-3) 10/29/19 00:45 11/28/19 00:44 11/03/19 21:53 Ceftriaxone Sodium 1 gm/ Sodium Chloride 110 ml @ 220 mls/hr Q24H IVPB 11/04/19 12:00 11/09/19 11:59 11/05/19 12:05 Dexamethasone Sodium Phosphate (Decadron 10mg/ ml Inj) 6 mg Q24H IV 10/29/19 17:00 01/27/20 16:59 11/04/19 17:43 Dextrose (Dextrose 50%) 25 ml Q30M PRN IV Hypoglycemia 11/02/19 08:30 01/31/20 08:29 Dextrose (Dextrose 50%) 50 ml Q30M PRN IV Hypoglycemia 11/02/19 08:30 01/31/20 08:29 Insulin Aspart (NovoLOG) BEFORE MEALS AND HS SUBQ 10/30/19 16:30 01/28/20 16:29 11/05/19 06:17 Insulin Aspart (NovoLOG) 8 units NOVOTIAC SUBQ 11/05/19 16:50 02/01/20 11:49 Insulin Detemir (Levemir) 12 units Q12HR SUBQ 11/05/19 21:00 02/03/20 20:59 Stas Garcia MD Nov 05, 2019 12:55
[2019-11-05 16:00] VITALS: BP 96/63
[2019-11-05] MEDS: dexAMETHasone 10mg/ml Inj IV SCH (17:13)
--- NOTE | 2019-11-05 18:26 | Pulmonology Progress Note ---
Subjective ROS Limited/Unobtainable: Yes Interval Events: None new Constitutional: Denies: fever HEENT: Repors: no symptoms Respiratory: Reports: dry cough, shortness of breath Cardiovascular: Reports: no symptoms Gastrointestinal/Abdominal: Reports: no symptoms Allergies: Coded Allergies: No Known Allergies (Unverified , 10/28/19) Objective Last 24 Hour Vital Signs Date Time Temp Pulse Resp B/P (MAP) Pulse Ox O2 Delivery O2 Flow Rate FiO2 11/05/19 16:00 98.1 65 20 96/63 (74) 96 11/05/19 12:00 97.7 65 20 111/67 (82) 97 11/05/19 12:00 65 11/05/19 09:00 Non-Rebreather 10.0 11/05/19 08:00 74 11/05/19 08:00 97.7 72 22 96/61 (73) 98 11/05/19 04:00 98.5 63 19 125/66 (85) 97 11/05/19 04:00 64 11/05/19 00:00 65 11/04/19 23:56 98.6 68 20 124/68 (86) 96 11/04/19 21:00 Non-Rebreather 10.0 11/04/19 20:00 66 11/04/19 20:00 98.9 68 20 139/62 (87) 96 Intake and Output 11/04/19 11/05/19 19:00 07:00 Intake Total 740 ml 60 ml Output Total 1350 ml 180 ml Balance -610 ml -120 ml Intake Oral 740 ml 60 ml Output Urine Total 1350 ml 180 ml # Voids 2 General Appearance: no acute distress HEENT: normocephalic Respiratory: decreased breath sounds Cardiovascular: normal peripheral pulses Abdomen: normal bowel sounds Laboratory Tests 11/04/19 20:43: POC Whole Blood Glucose 299H 11/05/19 04:00: White Blood Count 9.5, Red Blood Count 5.47, Hemoglobin 15.3, Hematocrit 47.3, Mean Corpuscular Volume 86, Mean Corpuscular Hemoglobin 27.9, Mean Corpuscular Hemoglobin Concent 32.3, Red Cell Distribution Width 11.4L, Platelet Count 189, Mean Platelet Volume 7.6, Neutrophils (%) (Auto) , Lymphocytes (%) (Auto) , Monocytes (%) (Auto) , Eosinophils (%) (Auto) , Basophils (%) (Auto) , Differential Total Cells Counted 100, Neutrophils % (Manual) 89H, Lymphocytes % (Manual) 6L, Monocytes % (Manual) 5, Eosinophils % (Manual) 0, Basophils % ( Manual) 0, Band Neutrophils 0, Platelet Estimate Adequate, Platelet Morphology Normal, Red Blood Cell Morphology Normal, Sodium Level 136, Potassium Level 4.6 , Chloride Level 100, Carbon Dioxide Level 29, Anion Gap 7, Blood Urea Nitrogen 23H, Creatinine 0.7, Estimat Glomerular Filtration Rate > 60, Glucose Level 272H , Calcium Level 8.3L, Total Bilirubin 0.5, Aspartate Amino Transf (AST/SGOT) 22 , Alanine Aminotransferase (ALT/SGPT) 37, Alkaline Phosphatase 101, Total Protein 6.5, Albumin 2.1L, Globulin 4.4, Albumin/Globulin Ratio 0.5L 11/05/19 08:33: POC Whole Blood Glucose [Pending] 11/05/19 12:10: POC Whole Blood Glucose 116H 11/05/19 17:16: POC Whole Blood Glucose 187H Current Medications Medications (Trade) Dose Ordered Sig/Roman Route PRN Reason Start Time Stop Time Status Last Admin Dose Admin Acetaminophen (Tylenol) 500 mg Q4H PRN ORAL Mild Pain (Pain Scale 1-3) 10/29/19 00:45 11/28/19 00:44 11/03/19 21:53 Ceftriaxone Sodium 1 gm/ Sodium Chloride 110 ml @ 220 mls/hr Q24H IVPB 11/04/19 12:00 11/09/19 11:59 11/05/19 12:05 Dexamethasone Sodium Phosphate (Decadron 10mg/ ml Inj) 6 mg Q24H IV 10/29/19 17:00 01/27/20 16:59 11/05/19 17:13 Dextrose (Dextrose 50%) 25 ml Q30M PRN IV Hypoglycemia 11/02/19 08:30 01/31/20 08:29 Dextrose (Dextrose 50%) 50 ml Q30M PRN IV Hypoglycemia 11/02/19 08:30 01/31/20 08:29 Insulin Aspart (NovoLOG) BEFORE MEALS AND HS SUBQ 10/30/19 16:30 01/28/20 16:29 11/05/19 16:30 Insulin Aspart (NovoLOG) 8 units NOVOTIAC SUBQ 11/05/19 16:50 02/01/20 11:49 11/05/19 16:50 Insulin Detemir (Levemir) 12 units Q12HR SUBQ 11/05/19 21:00 02/03/20 20:59 Assessment/Plan Assessment/Plan IMPRESSION: 1. Hypoxemia. 2. COVID-19 pneumonia. 3. Diabetes mellitus. DISCUSSION: Continue steroids, remdesivir, fluids. Continue nonrebreather mask. Now on 10/ I will follow. Self prone ventilation recommended Dajuan Bragg Omar Syed MD Nov 05, 2019 18:26
--- NOTE | 2019-11-05 19:20 | NUR ---
HAND-OFF: Report given to Antonio/RN. Patient in stable condition. Endorsed plan of care .
--- NOTE | 2019-11-05 19:22 | NUR ---
NURSE NOTES: Patient received from Sanjana RN. Patient in stable condition. Alert and oriented x4. No s/s of distress. Patient verbalized pain of leg 5/10. Administered PRN tylenol. On Non rebreather mask at 10L/min saturating well. Left wrist 22G IV site patent and intact saline locked. Bed in lowest position and locked. Bed side table and call light within reach. Will continue plan of care.
[2019-11-05] MEDS: Acetaminophen 500mg (ES) tab ORAL PRN (19:51)
[2019-11-05 20:00] VITALS: BP 105/62
--- NOTE | 2019-11-05 22:00 | General Progress Note ---
Assessment/Plan Problem List: (1) Hyperglycemia ICD Codes: R73.9 - Hyperglycemia, unspecified; J06.9 - Acute upper respiratory infection, unspecified SNOMED: 47611382, 358353621, 951886359 (2) Acute respiratory disease due to COVID-19 virus ICD Codes: U07.1 - COVID-19; J06.9 - Acute upper respiratory infection, unspecified SNOMED: 174305009, 231912216, 686146366 Status: progressing Assessment/Plan: no acute events still weak afebrile covid positive pna elevated sugar is improving oxygen /supportive care positive blood cx Subjective ROS Limited/Unobtainable: Yes Allergies: Coded Allergies: No Known Allergies (Unverified , 10/28/19) Objective Last 24 Hour Vital Signs Date Time Temp Pulse Resp B/P (MAP) Pulse Ox O2 Delivery O2 Flow Rate FiO2 11/05/19 16:00 98.1 65 20 96/63 (74) 96 11/05/19 12:00 97.7 65 20 111/67 (82) 97 11/05/19 12:00 65 11/05/19 09:00 Non-Rebreather 10.0 11/05/19 08:00 74 11/05/19 08:00 97.7 72 22 96/61 (73) 98 11/05/19 04:00 98.5 63 19 125/66 (85) 97 11/05/19 04:00 64 11/05/19 00:00 65 11/04/19 23:56 98.6 68 20 124/68 (86) 96 Intake and Output 11/04/19 11/05/19 19:00 07:00 Intake Total 740 ml 60 ml Output Total 1350 ml 180 ml Balance -610 ml -120 ml Intake Oral 740 ml 60 ml Output Urine Total 1350 ml 180 ml # Voids 2 Laboratory Tests 11/05/19 04:00: White Blood Count 9.5, Red Blood Count 5.47, Hemoglobin 15.3, Hematocrit 47.3, Mean Corpuscular Volume 86, Mean Corpuscular Hemoglobin 27.9, Mean Corpuscular Hemoglobin Concent 32.3, Red Cell Distribution Width 11.4L, Platelet Count 189, Mean Platelet Volume 7.6, Neutrophils (%) (Auto) , Lymphocytes (%) (Auto) , Monocytes (%) (Auto) , Eosinophils (%) (Auto) , Basophils (%) (Auto) , Differential Total Cells Counted 100, Neutrophils % (Manual) 89H, Lymphocytes % (Manual) 6L, Monocytes % (Manual) 5, Eosinophils % (Manual) 0, Basophils % ( Manual) 0, Band Neutrophils 0, Platelet Estimate Adequate, Platelet Morphology Normal, Red Blood Cell Morphology Normal, Sodium Level 136, Potassium Level 4.6 , Chloride Level 100, Carbon Dioxide Level 29, Anion Gap 7, Blood Urea Nitrogen 23H, Creatinine 0.7, Estimat Glomerular Filtration Rate > 60, Glucose Level 272H , Calcium Level 8.3L, Total Bilirubin 0.5, Aspartate Amino Transf (AST/SGOT) 22 , Alanine Aminotransferase (ALT/SGPT) 37, Alkaline Phosphatase 101, Total Protein 6.5, Albumin 2.1L, Globulin 4.4, Albumin/Globulin Ratio 0.5L 11/05/19 08:33: POC Whole Blood Glucose [Pending] 11/05/19 12:10: POC Whole Blood Glucose 116H 11/05/19 17:16: POC Whole Blood Glucose 187H Height (Feet): 5 Height (Inches): 7.00 Weight (Pounds): 143 Nesha Damon MD Nov 05, 2019 22:00
[2019-11-06] VITALS: BP 118/60
[2019-11-06 04:00] VITALS: BP 112/63
[2019-11-06] MEDS: NovoLOG Insulin Flexpen SUBQ SCH ×7 (05:48→20:35)
--- NOTE | 2019-11-06 06:57 | General Progress Note ---
Assessment/Plan Problem List: (1) Acute respiratory disease due to COVID-19 virus ICD Codes: U07.1 - COVID-19; J06.9 - Acute upper respiratory infection, unspecified SNOMED: 844617151, 026931185, 920485808 (2) Hyperglycemia ICD Codes: R73.9 - Hyperglycemia, unspecified; J06.9 - Acute upper respiratory infection, unspecified SNOMED: 09460134, 002375829, 885212071 Status: progressing Assessment/Plan: continue Levemir 12 units bid continue Novolog 8 units ac tid continue Novolog sliding scale ac / hs Subjective Allergies: Coded Allergies: No Known Allergies (Unverified , 10/28/19) Subjective events noted glucose values improved Item Value Date Time Bedside Blood Glucose 191 mg/dl H 11/06/19 0624 Bedside Blood Glucose 117 mg/dl 11/05/19 2124 Bedside Blood Glucose 187 mg/dl H 11/05/19 1650 Bedside Blood Glucose 116 mg/dl 11/05/19 1150 Bedside Blood Glucose 176 mg/dl H 11/05/19 0855 Bedside Blood Glucose 238 mg/dl H 11/05/19 0618 Objective Last 24 Hour Vital Signs Date Time Temp Pulse Resp B/P (MAP) Pulse Ox O2 Delivery O2 Flow Rate FiO2 11/06/19 04:00 97.9 77 19 112/63 (79) 96 11/06/19 00:00 97.8 80 19 118/60 (79) 98 11/05/19 21:00 Non-Rebreather 10.0 11/05/19 20:00 97.5 73 19 105/62 (76) 96 11/05/19 16:00 98.1 65 20 96/63 (74) 96 11/05/19 12:00 97.7 65 20 111/67 (82) 97 11/05/19 12:00 65 11/05/19 09:00 Non-Rebreather 10.0 11/05/19 08:00 74 11/05/19 08:00 97.7 72 22 96/61 (73) 98 Intake and Output 11/05/19 11/06/19 19:00 07:00 Intake Total 800 ml 200 ml Output Total 1200 ml 500 ml Balance -400 ml -300 ml Intake Oral 800 ml 200 ml Output Urine Total 1200 ml 500 ml # Voids 2 3 Laboratory Tests 11/05/19 08:33: POC Whole Blood Glucose [Pending] 11/05/19 12:10: POC Whole Blood Glucose 116H 11/05/19 17:16: POC Whole Blood Glucose 187H Height (Feet): 5 Height (Inches): 7.00 Weight (Pounds): 119 Objective Current Medications Medications (Trade) Dose Ordered Sig/Roman Route PRN Reason Start Time Stop Time Status Last Admin Dose Admin Acetaminophen (Tylenol) 500 mg Q4H PRN ORAL Mild Pain (Pain Scale 1-3) 10/29/19 00:45 11/28/19 00:44 11/05/19 19:51 Ceftriaxone Sodium 1 gm/ Sodium Chloride 110 ml @ 220 mls/hr Q24H IVPB 11/04/19 12:00 11/09/19 11:59 11/05/19 12:05 Dexamethasone Sodium Phosphate (Decadron 10mg/ ml Inj) 6 mg Q24H IV 10/29/19 17:00 01/27/20 16:59 11/05/19 17:13 Dextrose (Dextrose 50%) 25 ml Q30M PRN IV Hypoglycemia 11/02/19 08:30 01/31/20 08:29 Dextrose (Dextrose 50%) 50 ml Q30M PRN IV Hypoglycemia 11/02/19 08:30 01/31/20 08:29 Insulin Aspart (NovoLOG) BEFORE MEALS AND HS SUBQ 10/30/19 16:30 01/28/20 16:29 11/06/19 05:48 Insulin Aspart (NovoLOG) 8 units NOVOTIAC SUBQ 11/05/19 16:50 02/01/20 11:49 11/06/19 05:49 Insulin Detemir (Levemir) 12 units Q12HR SUBQ 11/05/19 21:00 02/03/20 20:59 11/05/19 21:24 Aram Ochoa MD Nov 06, 2019 06:57
--- NOTE | 2019-11-06 07:06 | NUR ---
HAND-OFF: Report given to Sanjana RN. Patient in stable condition. Endorsed plan of care.
--- NOTE | 2019-11-06 07:11 | NUR ---
NURSE NOTES: Received report from Antonio/RN. Patient is awake and eating breakfast in bed. Patient is alert and oriented, on 10L non-rebreather mask. No distress or SOB noted at this time. Pt is able to make needs known. IV on left FA 22G, saline lock, clean and patent. Bed in lowest position and locked. Call light within reach, encouraged to use call light when needed. Will continue plan of care.
[2019-11-06 08:00] VITALS: BP 102/64
[2019-11-06] MEDS: Levemir Flexpen SUBQ SCH ×2 (08:58→20:34)
--- NOTE | 2019-11-06 10:04 | NUR ---
TRANSFER TO FLOOR: Patient transferred to [facility]. [facility] 4E to room 419-2, per Dr. Damon order. Report given to Crystal/OSMAR. Belongings and medications given to receiving nurse. Patient is in stable condition. Endorsed plan of care.
[2019-11-06] MEDS ORDERED: Acetaminophen 500mg (ES) tab ORAL PRN (10:05)
--- NOTE | 2019-11-06 10:48 | Infectious Diseases Prog Note ---
Assessment/Plan Assessment/Plan IMPRESSION: COVID-19 pneumonia, worsening CXR Hypoxemia, Uncontrolled diabetes mellitus, Hyponatremia. RECOMMENDATION: Finished remdesivir Continue dexamethasone & Rocephin Subjective ROS Limited/Unobtainable: Yes Constitutional: Denies: fever Allergies: Coded Allergies: No Known Allergies (Unverified , 10/28/19) Objective Last 24 Hour Vital Signs Date Time Temp Pulse Resp B/P (MAP) Pulse Ox O2 Delivery O2 Flow Rate FiO2 11/06/19 09:00 Non-Rebreather 10.0 11/06/19 08:00 97.0 71 20 102/64 (77) 98 11/06/19 04:00 97.9 77 19 112/63 (79) 96 11/06/19 00:00 97.8 80 19 118/60 (79) 98 11/05/19 21:00 Non-Rebreather 10.0 11/05/19 20:00 97.5 73 19 105/62 (76) 96 11/05/19 16:00 98.1 65 20 96/63 (74) 96 11/05/19 12:00 97.7 65 20 111/67 (82) 97 11/05/19 12:00 65 Height (Feet): 5 Height (Inches): 7.00 Weight (Pounds): 119 HEENT: mucous membranes moist Respiratory/Chest: other - Oxygen by rebreathing mask Cardiovascular: normal rate Abdomen: soft, non tender Extremities: no edema Neurologic/Psychiatric: other - sleeping Laboratory Tests Test 11/05/19 12:10 11/05/19 17:16 11/06/19 08:51 POC Whole Blood Glucose 116 MG/DL (74-106) H 187 MG/DL (74-106) H 118 MG/DL (74-106) H Current Medications Medications (Trade) Dose Ordered Sig/Roman Route PRN Reason Start Time Stop Time Status Last Admin Dose Admin Acetaminophen (Tylenol) 500 mg Q4H PRN ORAL Mild Pain (Pain Scale 1-3) 11/06/19 10:05 12/06/19 10:04 Ceftriaxone Sodium 1 gm/ Sodium Chloride 110 ml @ 220 mls/hr Q24H IVPB 11/06/19 12:00 11/09/19 11:59 Dexamethasone Sodium Phosphate (Decadron 10mg/ ml Inj) 6 mg Q24H IV 11/06/19 17:00 11/13/19 16:59 Dextrose (Dextrose 50%) 25 ml Q30M PRN IV Hypoglycemia 11/06/19 10:30 01/31/20 08:29 Dextrose (Dextrose 50%) 50 ml Q30M PRN IV Hypoglycemia 11/06/19 10:30 01/31/20 08:29 Insulin Aspart (NovoLOG) BEFORE MEALS AND HS SUBQ 11/06/19 11:30 01/28/20 16:29 Insulin Aspart (NovoLOG) 8 units NOVOTIAC SUBQ 11/06/19 11:50 02/01/20 11:49 Insulin Detemir (Levemir) 12 units Q12HR SUBQ 11/06/19 21:00 02/03/20 20:59 Stas Garcia MD Nov 06, 2019 10:48
[2019-11-06 12:00] VITALS: BP 108/60
[2019-11-06] MEDS: cefTRIAXone 1 GM in NS 110 ML IVPB SCH (12:44)
--- NOTE | 2019-11-06 13:54 | Pulmonology Progress Note ---
Subjective ROS Limited/Unobtainable: Yes Interval Events: None new Constitutional: Denies: fever HEENT: Repors: no symptoms Respiratory: Reports: dry cough, shortness of breath Cardiovascular: Reports: no symptoms Gastrointestinal/Abdominal: Reports: no symptoms Allergies: Coded Allergies: No Known Allergies (Unverified , 10/28/19) Objective Last 24 Hour Vital Signs Date Time Temp Pulse Resp B/P (MAP) Pulse Ox O2 Delivery O2 Flow Rate FiO2 11/06/19 12:00 96.6 66 18 108/60 (76) 96 11/06/19 09:00 Non-Rebreather 10.0 11/06/19 08:00 97.0 71 20 102/64 (77) 98 11/06/19 04:00 97.9 77 19 112/63 (79) 96 11/06/19 00:00 97.8 80 19 118/60 (79) 98 11/05/19 21:00 Non-Rebreather 10.0 11/05/19 20:00 97.5 73 19 105/62 (76) 96 11/05/19 16:00 98.1 65 20 96/63 (74) 96 Intake and Output 11/05/19 11/06/19 19:00 07:00 Intake Total 800 ml 200 ml Output Total 1200 ml 500 ml Balance -400 ml -300 ml Intake Oral 800 ml 200 ml Output Urine Total 1200 ml 500 ml # Voids 2 3 General Appearance: no acute distress HEENT: normocephalic Respiratory: decreased breath sounds Cardiovascular: normal peripheral pulses Abdomen: normal bowel sounds Laboratory Tests 11/05/19 17:16: POC Whole Blood Glucose 187H 11/06/19 08:51: POC Whole Blood Glucose 118H 11/06/19 12:47: POC Whole Blood Glucose [Pending] Current Medications Medications (Trade) Dose Ordered Sig/Roman Route PRN Reason Start Time Stop Time Status Last Admin Dose Admin Acetaminophen (Tylenol) 500 mg Q4H PRN ORAL Mild Pain (Pain Scale 1-3) 11/06/19 10:05 12/06/19 10:04 Ceftriaxone Sodium 1 gm/ Sodium Chloride 110 ml @ 220 mls/hr Q24H IVPB 11/06/19 12:00 11/09/19 11:59 11/06/19 12:44 Dexamethasone Sodium Phosphate (Decadron 10mg/ ml Inj) 6 mg Q24H IV 11/06/19 17:00 11/13/19 16:59 Dextrose (Dextrose 50%) 25 ml Q30M PRN IV Hypoglycemia 11/06/19 10:30 01/31/20 08:29 Dextrose (Dextrose 50%) 50 ml Q30M PRN IV Hypoglycemia 11/06/19 10:30 01/31/20 08:29 Insulin Aspart (NovoLOG) BEFORE MEALS AND HS SUBQ 11/06/19 11:30 01/28/20 16:29 11/06/19 11:30 Insulin Aspart (NovoLOG) 8 units NOVOTIAC SUBQ 11/06/19 11:50 02/01/20 11:49 11/06/19 11:50 Insulin Detemir (Levemir) 12 units Q12HR SUBQ 11/06/19 21:00 02/03/20 20:59 Assessment/Plan Assessment/Plan IMPRESSION: 1. Hypoxemia. 2. COVID-19 pneumonia. 3. Diabetes mellitus. DISCUSSION: Continue steroids, remdesivir, fluids. Continue nonrebreather mask. Now on 10L/mi I will follow. Self prone ventilation recommended Dajuan Bragg Omar Syed MD Nov 06, 2019 13:54
--- NOTE | 2019-11-06 16:19 | Cardiac Electrophysiology PN ---
Assessment/Plan Assessment/Plan 1. COVID pneumonia. S/P Remdesivir treatment. EF 60%. Not Clinical CHF On Oxygen, Dexamethasone and Ceftriaxone 2. Uncontrolled diabetes. On insulin per Dr. Ochoa. 3. Mild bradycardia with HR 50s Now off tele 4. PACs DW RN Subjective Subjective S/P Remdesivir Rx for Covid. In Covid isolation. Comfortable in NAD off tele Objective Last 24 Hour Vital Signs Date Time Temp Pulse Resp B/P (MAP) Pulse Ox O2 Delivery O2 Flow Rate FiO2 11/06/19 12:00 96.6 66 18 108/60 (76) 96 11/06/19 09:00 Non-Rebreather 10.0 11/06/19 08:00 97.0 71 20 102/64 (77) 98 11/06/19 04:00 97.9 77 19 112/63 (79) 96 11/06/19 00:00 97.8 80 19 118/60 (79) 98 11/05/19 21:00 Non-Rebreather 10.0 11/05/19 20:00 97.5 73 19 105/62 (76) 96 Intake and Output 11/05/19 11/06/19 19:00 07:00 Intake Total 800 ml 200 ml Output Total 1200 ml 500 ml Balance -400 ml -300 ml Intake Oral 800 ml 200 ml Output Urine Total 1200 ml 500 ml # Voids 2 3 Laboratory Tests Test 11/05/19 17:16 11/06/19 08:51 11/06/19 12:47 POC Whole Blood Glucose 187 MG/DL (74-106) H 118 MG/DL (74-106) H Pending Objective HEAD AND NECK: No JVD. LUNGS: Clear. CARDIOVASCULAR: Regular S1 and S2 with no gallop or murmur. ABDOMEN: Soft. EXTREMITIES: No pitting edema. Mohsen Epps MD Nov 06, 2019 16:19
[2019-11-06 16:29] VITALS: BP 115/68
[2019-11-06] MEDS: dexAMETHasone 10mg/ml Inj IV SCH (16:43)
--- NOTE | 2019-11-06 19:22 | NUR ---
HAND-OFF: Report given to OSMAR Kapadia.
--- NOTE | 2019-11-06 19:23 | NUR ---
NURSE NOTES: Received a pt awake ,A&o x4, and verbal. No fever,cough and pain at the moment. pt is on 8L non-rebreather mask and pt o2 sat is 96-98%. Iv is intact and asymptomatic. pt is on covid 19 isolation. Bed is in the lower position,locked, and call light within reach. We will keep monitoring the pt.
[2019-11-06 20:00] VITALS: BP 100/60
--- NOTE | 2019-11-06 21:37 | General Progress Note ---
Assessment/Plan Problem List: (1) Hyperglycemia ICD Codes: R73.9 - Hyperglycemia, unspecified; J06.9 - Acute upper respiratory infection, unspecified SNOMED: 83563619, 655683409, [id number] (2) Acute respiratory disease due to COVID-19 virus ICD Codes: U07.1 - COVID-19; J06.9 - Acute upper respiratory infection, unspecified SNOMED: 382150103, 014616649, [id number] Status: progressing Assessment/Plan: reviewed chart and labs more alert covid positive pna elevated sugar oxygen /supportive care positive blood cx Subjective ROS Limited/Unobtainable: Yes Allergies: Coded Allergies: No Known Allergies (Unverified , 10/28/19) Objective Last 24 Hour Vital Signs Date Time Temp Pulse Resp B/P (MAP) Pulse Ox O2 Delivery O2 Flow Rate FiO2 11/06/19 21:00 Non-Rebreather 10.0 11/06/19 20:00 96.7 68 18 100/60 (73) 97 11/06/19 16:29 97.0 71 18 115/68 (84) 97 11/06/19 12:00 96.6 66 18 108/60 (76) 96 11/06/19 09:00 Non-Rebreather 10.0 11/06/19 08:00 97.0 71 20 102/64 (77) 98 11/06/19 04:00 97.9 77 19 112/63 (79) 96 11/06/19 00:00 97.8 80 19 118/60 (79) 98 Intake and Output 11/05/19 11/06/19 19:00 07:00 Intake Total 800 ml 200 ml Output Total 1200 ml 500 ml Balance -400 ml -300 ml Intake Oral 800 ml 200 ml Output Urine Total 1200 ml 500 ml # Voids 2 3 Laboratory Tests 11/06/19 05:37: POC Whole Blood Glucose 191H 11/06/19 08:51: POC Whole Blood Glucose 118H 11/06/19 12:47: POC Whole Blood Glucose [Pending] 11/06/19 16:17: POC Whole Blood Glucose 173H 11/06/19 20:29: POC Whole Blood Glucose 293H Height (Feet): 5 Height (Inches): 7.00 Weight (Pounds): 119 Nesha Damon MD Nov 06, 2019 21:37
[2019-11-07] VITALS: BP 102/65
[2019-11-07 04:00] VITALS: BP 92/56
--- NOTE | 2019-11-07 05:53 | Pulmonology Progress Note ---
Subjective ROS Limited/Unobtainable: Yes Interval Events: None new Constitutional: Denies: fever HEENT: Repors: no symptoms Respiratory: Reports: dry cough, shortness of breath Cardiovascular: Reports: no symptoms Gastrointestinal/Abdominal: Reports: no symptoms Allergies: Coded Allergies: No Known Allergies (Unverified , 10/28/19) Objective Last 24 Hour Vital Signs Date Time Temp Pulse Resp B/P (MAP) Pulse Ox O2 Delivery O2 Flow Rate FiO2 11/07/19 04:00 96.1 62 18 92/56 (68) 100 11/07/19 00:00 98.2 71 16 102/65 (77) 98 11/06/19 21:00 Non-Rebreather 10.0 11/06/19 20:00 96.7 68 18 100/60 (73) 97 11/06/19 16:29 97.0 71 18 115/68 (84) 97 11/06/19 12:00 96.6 66 18 108/60 (76) 96 11/06/19 09:00 Non-Rebreather 10.0 11/06/19 08:00 97.0 71 20 102/64 (77) 98 Intake and Output 11/06/19 11/07/19 19:00 07:00 Intake Total 530 ml Output Total 600 ml Balance -70 ml Intake Oral 420 ml IV Total 110 ml Output Urine Total 600 ml General Appearance: no acute distress HEENT: normocephalic Respiratory: decreased breath sounds Cardiovascular: normal peripheral pulses Abdomen: normal bowel sounds Laboratory Tests 11/06/19 08:51: POC Whole Blood Glucose 118H 11/06/19 12:47: POC Whole Blood Glucose [Pending] 11/06/19 16:17: POC Whole Blood Glucose 173H 11/06/19 20:29: POC Whole Blood Glucose 293H Current Medications Medications (Trade) Dose Ordered Sig/Roman Route PRN Reason Start Time Stop Time Status Last Admin Dose Admin Acetaminophen (Tylenol) 500 mg Q4H PRN ORAL Mild Pain (Pain Scale 1-3) 11/06/19 10:05 12/06/19 10:04 Ceftriaxone Sodium 1 gm/ Sodium Chloride 110 ml @ 220 mls/hr Q24H IVPB 11/06/19 12:00 11/09/19 11:59 11/06/19 12:44 Dexamethasone Sodium Phosphate (Decadron 10mg/ ml Inj) 6 mg Q24H IV 11/06/19 17:00 11/13/19 16:59 11/06/19 16:43 Dextrose (Dextrose 50%) 25 ml Q30M PRN IV Hypoglycemia 11/06/19 10:30 01/31/20 08:29 Dextrose (Dextrose 50%) 50 ml Q30M PRN IV Hypoglycemia 11/06/19 10:30 01/31/20 08:29 Insulin Aspart (NovoLOG) BEFORE MEALS AND HS SUBQ 11/06/19 11:30 01/28/20 16:29 11/06/19 20:35 Insulin Aspart (NovoLOG) 8 units NOVOTIAC SUBQ 11/06/19 11:50 02/01/20 11:49 11/06/19 16:51 Insulin Detemir (Levemir) 12 units Q12HR SUBQ 11/06/19 21:00 02/03/20 20:59 11/06/19 20:34 Assessment/Plan Assessment/Plan IMPRESSION: 1. Hypoxemia. 2. COVID-19 pneumonia. 3. Diabetes mellitus. DISCUSSION: Continue steroids, remdesivir, fluids. Continue nonrebreather mask. Now on 10L/mi I will follow. Self prone ventilation recommended Dajuan Bragg Omar Syed MD Nov 07, 2019 05:53
[2019-11-07] MEDS: NovoLOG Insulin Flexpen SUBQ SCH ×7 (06:24→22:07)
--- NOTE | 2019-11-07 07:15 | NUR ---
HAND-OFF: Report given to OSMAR Ramos.
--- NOTE | 2019-11-07 07:20 | NUR ---
NURSE NOTES: Received a patient in bed, patient awake, alert, oriented x4, no sign of distress, denies pain or discomfort, On 8L non-rebreather mask , O2 sat is 96-98%. HL not patent leaking dcd. will place a new one later, on fall and isolation for covid 1precaution and maintained, 4 P's in progress. Bed is in the lower position,locked, and call light within reach. We will keep monitoring the pt. olga lidia coto
[2019-11-07 08:00] VITALS: BP 108/52
[2019-11-07] MEDS: Levemir Flexpen SUBQ SCH ×2 (08:16→21:57)
--- NOTE | 2019-11-07 08:43 | Cardiac Electrophysiology PN ---
Assessment/Plan Assessment/Plan 1. COVID pneumonia. S/P Remdesivir treatment. EF 60%. No Clinical CHF On Oxygen, Dexamethasone and Ceftriaxone 2. Uncontrolled diabetes. On insulin per Dr. Ochoa. 3. Mild bradycardia with HR 50s. Now off tele 4. PACs DW RN Subjective Subjective S/P Remdesivir. Rx for Covid. In Covid isolation. Comfortable in NAD off tele Objective Last 24 Hour Vital Signs Date Time Temp Pulse Resp B/P (MAP) Pulse Ox O2 Delivery O2 Flow Rate FiO2 11/07/19 08:00 97.0 62 18 108/52 (70) 100 11/07/19 04:00 96.1 62 18 92/56 (68) 100 11/07/19 00:00 98.2 71 16 102/65 (77) 98 11/06/19 21:00 Non-Rebreather 10.0 11/06/19 20:00 96.7 68 18 100/60 (73) 97 11/06/19 16:29 97.0 71 18 115/68 (84) 97 11/06/19 12:00 96.6 66 18 108/60 (76) 96 11/06/19 09:00 Non-Rebreather 10.0 Intake and Output 11/06/19 11/07/19 19:00 07:00 Intake Total 530 ml 360 ml Output Total 600 ml Balance -70 ml 360 ml Intake Oral 420 ml IV Total 110 ml Other 360 ml Output Urine Total 600 ml # Voids 2 Laboratory Tests Test 11/06/19 08:51 11/06/19 12:47 11/06/19 16:17 11/06/19 20:29 POC Whole Blood Glucose 118 MG/DL (74-106) H Pending 173 MG/DL (74-106) H 293 MG/DL (74-106) H Objective HEAD AND NECK: No JVD. LUNGS: Clear. CARDIOVASCULAR: Regular S1 and S2 with no gallop or murmur. ABDOMEN: Soft. EXTREMITIES: No pitting edema. Mohsen Epps MD Nov 07, 2019 08:43
[2019-11-07] MEDS: cefTRIAXone 1 GM in NS 110 ML IVPB SCH (11:24)
[2019-11-07 11:58] VITALS: BP 106/55
--- NOTE | 2019-11-07 13:23 | Infectious Diseases Prog Note ---
Assessment/Plan Assessment/Plan IMPRESSION: COVID-19 pneumonia, worsening CXR Hypoxemia, Uncontrolled diabetes mellitus, Hyponatremia. RECOMMENDATION: Finished remdesivir Continue dexamethasone & Rocephin X 1 day Repeat CXR Subjective ROS Limited/Unobtainable: Yes Constitutional: Denies: fever Respiratory: Reports: shortness of breath, productive cough Gastrointestinal/Abdominal: Reports: no symptoms Allergies: Coded Allergies: No Known Allergies (Unverified , 10/28/19) Objective Last 24 Hour Vital Signs Date Time Temp Pulse Resp B/P (MAP) Pulse Ox O2 Delivery O2 Flow Rate FiO2 11/07/19 11:58 97.2 65 18 106/55 (72) 100 11/07/19 08:20 Non-Rebreather 8.0 11/07/19 08:00 97.0 62 18 108/52 (70) 100 11/07/19 04:00 96.1 62 18 92/56 (68) 100 11/07/19 00:00 98.2 71 16 102/65 (77) 98 11/06/19 21:00 Non-Rebreather 10.0 11/06/19 20:00 96.7 68 18 100/60 (73) 97 11/06/19 16:29 97.0 71 18 115/68 (84) 97 Height (Feet): 5 Height (Inches): 7.00 Weight (Pounds): 119 General Appearance: no acute distress HEENT: mucous membranes moist Respiratory/Chest: lungs clear, other - oxygen by rebreathing mask Cardiovascular: normal rate Abdomen: soft, non tender Extremities: no edema Neurologic/Psychiatric: alert, responsive Musculoskeletal: atrophy Laboratory Tests Test 11/06/19 16:17 11/06/19 20:29 11/07/19 11:22 POC Whole Blood Glucose 173 MG/DL (74-106) H 293 MG/DL (74-106) H Pending Current Medications Medications (Trade) Dose Ordered Sig/Roman Route PRN Reason Start Time Stop Time Status Last Admin Dose Admin Acetaminophen (Tylenol) 500 mg Q4H PRN ORAL Mild Pain (Pain Scale 1-3) 11/06/19 10:05 12/06/19 10:04 Ceftriaxone Sodium 1 gm/ Sodium Chloride 110 ml @ 220 mls/hr Q24H IVPB 11/06/19 12:00 11/09/19 11:59 11/07/19 11:24 Dexamethasone Sodium Phosphate (Decadron 10mg/ ml Inj) 6 mg Q24H IV 11/06/19 17:00 11/13/19 16:59 11/06/19 16:43 Dextrose (Dextrose 50%) 25 ml Q30M PRN IV Hypoglycemia 11/06/19 10:30 01/31/20 08:29 Dextrose (Dextrose 50%) 50 ml Q30M PRN IV Hypoglycemia 11/06/19 10:30 01/31/20 08:29 Insulin Aspart (NovoLOG) BEFORE MEALS AND HS SUBQ 11/06/19 11:30 01/28/20 16:29 11/07/19 11:31 Insulin Aspart (NovoLOG) 8 units NOVOTIAC SUBQ 11/06/19 11:50 02/01/20 11:49 11/07/19 11:32 Insulin Detemir (Levemir) 12 units Q12HR SUBQ 11/06/19 21:00 02/03/20 20:59 11/07/19 08:16 Stas Garcia MD Nov 07, 2019 13:23
--- NOTE | 2019-11-07 14:57 | NUR ---
CASE MANAGEMENT: REVIEW 11/07/2019 SI:Hypoxemia. COVID-19 pneumonia. VS: T 96.1 HR 62 RR 18 B/P 92/56 SATS 100% ON 10L/NRB LABS: NO LABS TODAY IS:INSULIN ASPART SUBQ AC/HS LEVEMIR SUBQ Q12H CEFTRIAXONE IV Q24H DACADRON IV Q24H MED/SURG PLAN OF CARE: CXR On Oxygen, Dexamethasone and Ceftriaxone Finished remdesivir
[2019-11-07 15:55] VITALS: BP 103/59
--- NOTE | 2019-11-07 15:56 | Diagnostic Imaging Report ---
Indication: Shortness of breath Technique: One view of the chest Comparison: 10/31/2019 Findings: Bilateral infiltrates in a peribronchovascular distribution are again demonstrated, stable or perhaps slightly improved. The pleural spaces are clear. The heart size is normal Impression: Stable to slightly improved bilateral infiltrates since prior exam of 7 days earlier
[2019-11-07] MEDS: dexAMETHasone 10mg/ml Inj IV SCH (16:30)
--- NOTE | 2019-11-07 19:19 | NUR ---
HAND-OFF: Report given to OSMAR Bender RSTING COMFORTABLY IN BED, NO SIGN OF DISTRESS OSMAR ROSS.
--- NOTE | 2019-11-07 19:45 | NUR ---
NURSE NOTES: Pt is in bed, awake and verbal. No acute distress noted. Pt is on 5L non-rebreather mask.Pt looks comfortable, no SOb noted. Pt able to communicate needs. Bed locked low in position,side rails up and call light within reach. Pt will be monitored.
[2019-11-07 20:00] VITALS: BP 106/65
--- NOTE | 2019-11-07 20:52 | General Progress Note ---
Assessment/Plan Problem List: (1) Hyperglycemia ICD Codes: R73.9 - Hyperglycemia, unspecified; J06.9 - Acute upper respiratory infection, unspecified SNOMED: 33045278, 345310084, 906538657 (2) Acute respiratory disease due to COVID-19 virus ICD Codes: U07.1 - COVID-19; J06.9 - Acute upper respiratory infection, unspecified SNOMED: 753330709, 153924351, 392403797 Status: progressing Assessment/Plan: no change vitals stable supportive rx covid positive pna elevated sugar positive blood cx Subjective ROS Limited/Unobtainable: Yes Allergies: Coded Allergies: No Known Allergies (Unverified , 10/28/19) Objective Last 24 Hour Vital Signs Date Time Temp Pulse Resp B/P (MAP) Pulse Ox O2 Delivery O2 Flow Rate FiO2 11/07/19 20:00 96.4 69 20 106/65 (79) 99 11/07/19 15:55 98.0 66 18 103/59 (74) 96 11/07/19 11:58 97.2 65 18 106/55 (72) 100 11/07/19 08:20 Non-Rebreather 8.0 11/07/19 08:00 97.0 62 18 108/52 (70) 100 11/07/19 04:00 96.1 62 18 92/56 (68) 100 11/07/19 00:00 98.2 71 16 102/65 (77) 98 11/06/19 21:00 Non-Rebreather 10.0 Intake and Output 11/06/19 11/07/19 19:00 07:00 Intake Total 530 ml 360 ml Output Total 600 ml Balance -70 ml 360 ml Intake Oral 420 ml IV Total 110 ml Other 360 ml Output Urine Total 600 ml # Voids 2 Laboratory Tests 11/07/19 11:22: POC Whole Blood Glucose [Pending] 11/07/19 16:02: POC Whole Blood Glucose 153H Height (Feet): 5 Height (Inches): 7.00 Weight (Pounds): 119 Nesha Damon MD Nov 07, 2019 20:52
[2019-11-08] VITALS: BP 100/64
[2019-11-08 04:00] VITALS: BP 111/66
--- NOTE | 2019-11-08 04:20 | NUR ---
NURSE NOTES: Pt is in bed, awake and alert. No acute distress noted. No SOB, Vitals stable.
[2019-11-08] MEDS: NovoLOG Insulin Flexpen SUBQ SCH ×7 (06:22→21:24)
--- NOTE | 2019-11-08 07:20 | NUR ---
HAND-OFF: Report given to Hayden fernandez RN.Pt is awake and alert. O2 sat 96% on 2L n/c. Informed oncoming nurse that patient is fall risk.
[2019-11-08 08:00] VITALS: BP 111/61
[2019-11-08] MEDS: Levemir Flexpen SUBQ SCH ×2 (09:15→21:23)
--- NOTE | 2019-11-08 09:45 | NUR ---
NURSE NOTES: PT AXOX3, CALM, RESTING IN BED. IN NO APPARENT DISTRESS AT THIS TIME. PT ON NC 2L AND OXYGEN SATURATION IS 94-96%. NO APPARENT RESPIRATORY DISTRESS NOTED. PT EDUCATED NOT TO WALK BY HIMSELF, INSTEAD CALL STAFF FOR ASSISTANCE USING CALL LIGHT. FALL PRECAUTIONS. PT VERBALIZED UNDERSTANDING. BED IN LOWEST POSITION WITH CALL LIGHT WITHIN REACH. WILL CONTINUE TO MONITOR.
[2019-11-08 11:35] VITALS: BP 108/65
[2019-11-08] MEDS: cefTRIAXone 1 GM in NS 110 ML IVPB SCH (12:06)
--- NOTE | 2019-11-08 12:47 | CDS Physician Query ---
Clarification is required for compliance, coding accuracy, and to reflect severity of illness for this patient Dear Dr. Nesha Damon Date: 11/08/2019 [place] Operator/CDS Name: Gabrielle Bullock Clinical Documentation states: HNP: Patient is basically COVID positive. Admitted for COVID positive pneumonia, respiratory insufficiency, hypoxia on 6 L of nasal cannula initially, came in with weakness and patient is also diabetic. Patient is very weak RD note: NUTRITION DIAGNOSIS: Altered nutrition related lab values r/t diabetes as evidenced by A1C 10.9, BG on adm 300-400's. BMI 18.6, Albumin 2.0 Please select the most appropriate option: [] Protein/Calorie Malnutrition [] Mild [] Moderate [] Severe [] Hypoalbuminemia [] Cachexia [] Underweight [] Intestinal malabsorption [] Other [] Unable to determine [] Not Applicable Present on Admission: [] Yes [] No [] Clinically Undetermined Physician signature Date Please also document in your Progress Notes and/or Discharge Summary and indicate if the condition was present on admission. MTDD
--- NOTE | 2019-11-08 14:30 | Pulmonology Progress Note ---
Subjective ROS Limited/Unobtainable: No Interval Events: None new Constitutional: Denies: fever HEENT: Repors: no symptoms Respiratory: Reports: dry cough, shortness of breath Cardiovascular: Reports: no symptoms Gastrointestinal/Abdominal: Reports: no symptoms Allergies: Coded Allergies: No Known Allergies (Unverified , 10/28/19) Objective Last 24 Hour Vital Signs Date Time Temp Pulse Resp B/P (MAP) Pulse Ox O2 Delivery O2 Flow Rate FiO2 11/08/19 11:35 98.0 68 20 108/65 (79) 100 11/08/19 09:00 Non-Rebreather 5.0 11/08/19 08:00 98.2 64 20 111/61 (78) 100 64 11/08/19 04:00 97.5 60 18 111/66 (81) 100 11/08/19 00:00 96.8 66 20 100/64 (76) 99 11/07/19 21:00 Non-Rebreather 5.0 11/07/19 20:00 96.4 69 20 106/65 (79) 99 11/07/19 15:55 98.0 66 18 103/59 (74) 96 Intake and Output 11/07/19 11/08/19 19:00 07:00 Intake Total 1300 ml 360 ml Output Total 900 ml Balance 400 ml 360 ml Intake Oral 1300 ml Other 360 ml Output Urine Total 900 ml # Voids 2 2 General Appearance: no acute distress HEENT: normocephalic Respiratory: decreased breath sounds Cardiovascular: normal peripheral pulses Abdomen: normal bowel sounds Laboratory Tests 11/07/19 16:02: POC Whole Blood Glucose 153H 11/07/19 20:57: POC Whole Blood Glucose 182H 11/08/19 05:45: POC Whole Blood Glucose 110H 11/08/19 11:19: POC Whole Blood Glucose 143H Current Medications Medications (Trade) Dose Ordered Sig/Roman Route PRN Reason Start Time Stop Time Status Last Admin Dose Admin Acetaminophen (Tylenol) 500 mg Q4H PRN ORAL Mild Pain (Pain Scale 1-3) 11/06/19 10:05 12/06/19 10:04 Ceftriaxone Sodium 1 gm/ Sodium Chloride 110 ml @ 220 mls/hr Q24H IVPB 11/06/19 12:00 11/09/19 11:59 11/08/19 12:06 Dexamethasone Sodium Phosphate (Decadron 10mg/ ml Inj) 6 mg Q24H IV 11/06/19 17:00 11/13/19 16:59 11/07/19 16:30 Dextrose (Dextrose 50%) 25 ml Q30M PRN IV Hypoglycemia 11/06/19 10:30 01/31/20 08:29 Dextrose (Dextrose 50%) 50 ml Q30M PRN IV Hypoglycemia 11/06/19 10:30 01/31/20 08:29 Insulin Aspart (NovoLOG) BEFORE MEALS AND HS SUBQ 11/06/19 11:30 01/28/20 16:29 11/08/19 12:21 Insulin Aspart (NovoLOG) 8 units NOVOTIAC SUBQ 11/06/19 11:50 02/01/20 11:49 11/08/19 12:21 Insulin Detemir (Levemir) 12 units Q12HR SUBQ 11/06/19 21:00 02/03/20 20:59 11/08/19 09:15 Assessment/Plan Assessment/Plan Pulmonary Progress Note Subjective ROS Limited/Unobtainable: Yes Interval Events: None new Constitutional: Denies: fever Respiratory: Reports: dry cough, shortness of breath Cardiovascular: Reports: no symptoms Gastrointestinal/Abdominal: Reports: no symptoms Allergies: Coded Allergies: No Known Allergies (Unverified , 10/28/19) Objective Vital Signs Noted Deferred Covid19 Laboratory Tests Noted Assessment/Plan IMPRESSION: 1. COVID-19 pneumonia, on PRN O2 2. H/o Diabetes mellitus. PLAN: Continue steroids, remdesivir ID following O2 PRN Self prone ventilation as tolerated Carlos Tarango MD Nov 08, 2019 14:30
[2019-11-08 16:00] VITALS: BP 107/56
[2019-11-08 16:37] LABS: BASOPHILS % (AUTO) 0.9 % (0.0-2.0); HEMATOCRIT 44.5 % (42.0-52.0); HEMOGLOBIN 14.7 G/DL (14.2-18.0); LYMPHOCYTES % (AUTO) 22.7 % (20.0-45.0); MEAN CORPUSCULAR VOLUME 86 FL (80-99); MONOCYTES % (AUTO) 9.7 % (1.0-10.0); NEUTROPHILS % (AUTO) 65.7 % (45.0-75.0); PLATELET COUNT 178 K/UL (150-450); RED BLOOD COUNT 5.16 M/UL (4.70-6.10); RED CELL DISTRIBUTION WIDTH 12.1 % (11.6-14.8); WHITE BLOOD COUNT 13.6 K/UL (4.8-10.8)
[2019-11-08] MEDS: dexAMETHasone 10mg/ml Inj IV SCH (16:48)
[2019-11-08 16:52] LABS: ALANINE AMINOTRANSFERASE 36 U/L (12-78); ALBUMIN 2.3 G/DL (3.4-5.0); ALBUMIN/GLOBULIN RATIO 0.5 (1.0-2.7); ALKALINE PHOSPHATASE 107 U/L (46-116); ANION GAP 6 mmol/L (5-15); ASPARTATE AMINO TRANSFERASE 25 U/L (15-37); BILIRUBIN,TOTAL 0.2 MG/DL (0.2-1.0); BLOOD UREA NITROGEN 23 mg/dL (7-18); CALCIUM 8.8 MG/DL (8.5-10.1); CARBON DIOXIDE 29 MMOL/L (21-32); CHLORIDE 104 MMOL/L (98-107); CREATININE 0.8 MG/DL (0.55-1.30); POTASSIUM 3.5 MMOL/L (3.5-5.1); SODIUM 139 MMOL/L (136-145)
--- NOTE | 2019-11-08 19:22 | NUR ---
HAND-OFF: Report given to Holley AGUILAR RN.
[2019-11-08 20:00] VITALS: BP 105/58
--- NOTE | 2019-11-08 20:16 | Cardiac Electrophysiology PN ---
Assessment/Plan Assessment/Plan 1. COVID pneumonia. S/P Remdesivir treatment. EF 60%. No Clinical CHF On Oxygen, Dexamethasone and Ceftriaxone 2. Uncontrolled diabetes. On insulin per Dr. Ochoa. 3. Mild bradycardia with HR 50s. Now off tele 4. PACs DW RN Subjective Subjective In Covid isolation. Comfortable in NAD off tele Objective Last 24 Hour Vital Signs Date Time Temp Pulse Resp B/P (MAP) Pulse Ox O2 Delivery O2 Flow Rate FiO2 11/08/19 16:00 97.7 66 20 107/56 (73) 96 11/08/19 11:35 98.0 68 20 108/65 (79) 100 11/08/19 09:00 Non-Rebreather 5.0 11/08/19 08:00 98.2 64 20 111/61 (78) 100 64 11/08/19 04:00 97.5 60 18 111/66 (81) 100 11/08/19 00:00 96.8 66 20 100/64 (76) 99 11/07/19 21:00 Non-Rebreather 5.0 Intake and Output 11/07/19 11/08/19 19:00 07:00 Intake Total 1300 ml 360 ml Output Total 900 ml Balance 400 ml 360 ml Intake Oral 1300 ml Other 360 ml Output Urine Total 900 ml # Voids 2 2 Laboratory Tests Test 11/07/19 20:57 11/08/19 05:45 11/08/19 11:19 11/08/19 16:00 POC Whole Blood Glucose 182 MG/DL (74-106) H 110 MG/DL (74-106) H 143 MG/DL (74-106) H White Blood Count 13.6 K/UL (4.8-10.8) H Red Blood Count 5.16 M/UL (4.70-6.10) Hemoglobin 14.7 G/DL (14.2-18.0) Hematocrit 44.5 % (42.0-52.0) Mean Corpuscular Volume 86 FL (80-99) Mean Corpuscular Hemoglobin 28.4 PG (27.0-31.0) Mean Corpuscular Hemoglobin Concent 32.9 G/DL (32.0-36.0) Red Cell Distribution Width 12.1 % (11.6-14.8) Platelet Count 178 K/UL (150-450) Mean Platelet Volume 7.8 FL (6.5-10.1) Neutrophils (%) (Auto) 65.7 % (45.0-75.0) Lymphocytes (%) (Auto) 22.7 % (20.0-45.0) Monocytes (%) (Auto) 9.7 % (1.0-10.0) Eosinophils (%) (Auto) 1.0 % (0.0-3.0) Basophils (%) (Auto) 0.9 % (0.0-2.0) Sodium Level 139 MMOL/L (136-145) Potassium Level 3.5 MMOL/L (3.5-5.1) Chloride Level 104 MMOL/L (98-107) Carbon Dioxide Level 29 MMOL/L (21-32) Anion Gap 6 mmol/L (5-15) Blood Urea Nitrogen 23 mg/dL (7-18) H Creatinine 0.8 MG/DL (0.55-1.30) Estimat Glomerular Filtration Rate > 60 mL/min (>60) Glucose Level 77 MG/DL (74-106) Calcium Level 8.8 MG/DL (8.5-10.1) Total Bilirubin 0.2 MG/DL (0.2-1.0) Aspartate Amino Transf (AST/SGOT) 25 U/L (15-37) Alanine Aminotransferase (ALT/SGPT) 36 U/L (12-78) Alkaline Phosphatase 107 U/L (46-116) Total Protein 6.5 G/DL (6.4-8.2) Albumin 2.3 G/DL (3.4-5.0) L Globulin 4.2 g/dL Albumin/Globulin Ratio 0.5 (1.0-2.7) L Objective HEAD AND NECK: No JVD. LUNGS: Clear. CARDIOVASCULAR: Regular S1 and S2 with no gallop or murmur. ABDOMEN: Soft. EXTREMITIES: No pitting edema. Mohsen Epps MD Nov 08, 2019 20:16
--- NOTE | 2019-11-08 20:28 | NUR ---
NURSE NOTES: Report recieved from Hayden PRASAD. Patient is awake and alert x 4. Patient is noted to be on 2 liters of oxygen via nasal canula with an oxygen saturation of 96 %. Patient denies chest pain and shortness of breath at this time. Patient is noted to have right forearm 22 heidi IV access. Patient is noted to be on droplet and contact isolation. Patient is noted to have tested positive on October 28, 2019. Bed is locked, in lowest position, and alarmed. Call light in reach. Will continue to follow plan of care.
--- NOTE | 2019-11-08 21:52 | General Progress Note ---
Assessment/Plan Problem List: (1) Hyperglycemia ICD Codes: R73.9 - Hyperglycemia, unspecified; J06.9 - Acute upper respiratory infection, unspecified SNOMED: 98083945, 890572162, [id number] (2) Acute respiratory disease due to COVID-19 virus ICD Codes: U07.1 - COVID-19; J06.9 - Acute upper respiratory infection, unspecified SNOMED: 670911326, 144578806, [id number] Status: progressing Assessment/Plan: weak reviewed chart covid positive pna niddm afebrile positive blood cx Subjective ROS Limited/Unobtainable: Yes Allergies: Coded Allergies: No Known Allergies (Unverified , 10/28/19) Objective Last 24 Hour Vital Signs Date Time Temp Pulse Resp B/P (MAP) Pulse Ox O2 Delivery O2 Flow Rate FiO2 11/08/19 20:00 98.9 70 20 105/58 (74) 96 11/08/19 16:00 97.7 66 20 107/56 (73) 96 11/08/19 11:35 98.0 68 20 108/65 (79) 100 11/08/19 09:00 Non-Rebreather 5.0 11/08/19 08:00 98.2 64 20 111/61 (78) 100 64 11/08/19 04:00 97.5 60 18 111/66 (81) 100 11/08/19 00:00 96.8 66 20 100/64 (76) 99 Intake and Output 11/07/19 11/08/19 19:00 07:00 Intake Total 1300 ml 360 ml Output Total 900 ml Balance 400 ml 360 ml Intake Oral 1300 ml Other 360 ml Output Urine Total 900 ml # Voids 2 2 Laboratory Tests 11/08/19 05:45: POC Whole Blood Glucose 110H 11/08/19 11:19: POC Whole Blood Glucose 143H 11/08/19 16:00: White Blood Count 13.6H, Red Blood Count 5.16, Hemoglobin 14.7, Hematocrit 44.5 , Mean Corpuscular Volume 86, Mean Corpuscular Hemoglobin 28.4, Mean Corpuscular Hemoglobin Concent 32.9, Red Cell Distribution Width 12.1, Platelet Count 178, Mean Platelet Volume 7.8, Neutrophils (%) (Auto) 65.7, Lymphocytes (% ) (Auto) 22.7, Monocytes (%) (Auto) 9.7, Eosinophils (%) (Auto) 1.0, Basophils ( %) (Auto) 0.9, Sodium Level 139, Potassium Level 3.5, Chloride Level 104, Carbon Dioxide Level 29, Anion Gap 6, Blood Urea Nitrogen 23H, Creatinine 0.8, Estimat Glomerular Filtration Rate > 60, Glucose Level 77, Calcium Level 8.8, Total Bilirubin 0.2, Aspartate Amino Transf (AST/SGOT) 25, Alanine Aminotransferase (ALT/SGPT) 36, Alkaline Phosphatase 107, Total Protein 6.5, Albumin 2.3L, Globulin 4.2, Albumin/Globulin Ratio 0.5L Height (Feet): 5 Height (Inches): 7.00 Weight (Pounds): 119 Nesha Damon MD Nov 08, 2019 21:52
[2019-11-09] VITALS (7 sets, daily range): BP systolic 96–145; BP diastolic 55–90
[2019-11-09] MEDS: NovoLOG Insulin Flexpen SUBQ SCH ×7 (06:09→21:00)
--- NOTE | 2019-11-09 07:01 | NUR ---
HAND-OFF: Report given to Hayden PRASAD. Endorsed that patient sits at edge of bed to use urinal without calling for help. Does not try to stand up though, bed alarm will sound though. Patient is currently in stable condition.
[2019-11-09] MEDS: Levemir Flexpen SUBQ SCH ×2 (08:49→21:00)
--- NOTE | 2019-11-09 08:50 | NUR ---
NURSE NOTES: PT COMPLAINING OF BILATERAL CALF PAIN. NO SWELLING OR REDNESS NOTED.BILATERALPEDAL PULSES STRONG. BILATERAL LE STRENGTH 4/5. PT ABLE TO TURN INDEPENDENTLY IN BED. DR SUH MADE AWARE. PER MD, HE HAS CONSULTED DR GRIMES. BED LINEN CHANGED. SACRAL INTACT. WILL CONTINUE TO MONITOR.
--- NOTE | 2019-11-09 13:04 | Infectious Diseases Prog Note ---
Assessment/Plan Assessment/Plan IMPRESSION: COVID-19 pneumonia, stable CXR Hypoxemia, improving Uncontrolled diabetes mellitus, Hyponatremia. RECOMMENDATION: Finished remdesivir Discontinue dexamethasone Subjective ROS Limited/Unobtainable: Yes Constitutional: Reports: other - doing better Allergies: Coded Allergies: No Known Allergies (Unverified , 10/28/19) Objective Last 24 Hour Vital Signs Date Time Temp Pulse Resp B/P (MAP) Pulse Ox O2 Delivery O2 Flow Rate FiO2 11/09/19 09:00 Nasal Cannula 2.0 11/09/19 08:00 97.2 63 18 103/58 (73) 97 11/09/19 04:00 98.1 61 18 108/64 (79) 97 11/09/19 00:00 98.7 76 18 145/90 (108) 97 11/08/19 21:00 Nasal Cannula 2.0 11/08/19 20:00 98.9 70 20 105/58 (74) 96 11/08/19 16:00 97.7 66 20 107/56 (73) 96 Height (Feet): 5 Height (Inches): 7.00 Weight (Pounds): 119 General Appearance: no acute distress HEENT: mucous membranes moist Respiratory/Chest: other - oxygen by nasal cannula Cardiovascular: normal rate Abdomen: soft, non tender Extremities: no edema Neurologic/Psychiatric: alert, responsive Laboratory Tests Test 11/08/19 16:00 11/09/19 05:55 White Blood Count 13.6 K/UL (4.8-10.8) H Red Blood Count 5.16 M/UL (4.70-6.10) Hemoglobin 14.7 G/DL (14.2-18.0) Hematocrit 44.5 % (42.0-52.0) Mean Corpuscular Volume 86 FL (80-99) Mean Corpuscular Hemoglobin 28.4 PG (27.0-31.0) Mean Corpuscular Hemoglobin Concent 32.9 G/DL (32.0-36.0) Red Cell Distribution Width 12.1 % (11.6-14.8) Platelet Count 178 K/UL (150-450) Mean Platelet Volume 7.8 FL (6.5-10.1) Neutrophils (%) (Auto) 65.7 % (45.0-75.0) Lymphocytes (%) (Auto) 22.7 % (20.0-45.0) Monocytes (%) (Auto) 9.7 % (1.0-10.0) Eosinophils (%) (Auto) 1.0 % (0.0-3.0) Basophils (%) (Auto) 0.9 % (0.0-2.0) Sodium Level 139 MMOL/L (136-145) Potassium Level 3.5 MMOL/L (3.5-5.1) Chloride Level 104 MMOL/L (98-107) Carbon Dioxide Level 29 MMOL/L (21-32) Anion Gap 6 mmol/L (5-15) Blood Urea Nitrogen 23 mg/dL (7-18) H Creatinine 0.8 MG/DL (0.55-1.30) Estimat Glomerular Filtration Rate > 60 mL/min (>60) Glucose Level 77 MG/DL (74-106) Calcium Level 8.8 MG/DL (8.5-10.1) Total Bilirubin 0.2 MG/DL (0.2-1.0) Aspartate Amino Transf (AST/SGOT) 25 U/L (15-37) Alanine Aminotransferase (ALT/SGPT) 36 U/L (12-78) Alkaline Phosphatase 107 U/L (46-116) Total Protein 6.5 G/DL (6.4-8.2) Albumin 2.3 G/DL (3.4-5.0) L Globulin 4.2 g/dL Albumin/Globulin Ratio 0.5 (1.0-2.7) L POC Whole Blood Glucose 107 MG/DL (74-106) H Current Medications Medications (Trade) Dose Ordered Sig/Roman Route PRN Reason Start Time Stop Time Status Last Admin Dose Admin Acetaminophen (Tylenol) 500 mg Q4H PRN ORAL Mild Pain (Pain Scale 1-3) 11/06/19 10:05 12/06/19 10:04 11/08/19 16:48 Dexamethasone Sodium Phosphate (Decadron 10mg/ ml Inj) 6 mg Q24H IV 11/06/19 17:00 11/13/19 16:59 11/08/19 16:48 Dextrose (Dextrose 50%) 25 ml Q30M PRN IV Hypoglycemia 11/06/19 10:30 01/31/20 08:29 Dextrose (Dextrose 50%) 50 ml Q30M PRN IV Hypoglycemia 11/06/19 10:30 01/31/20 08:29 Insulin Aspart (NovoLOG) BEFORE MEALS AND HS SUBQ 11/06/19 11:30 01/28/20 16:29 11/09/19 11:33 Insulin Aspart (NovoLOG) 8 units NOVOTIAC SUBQ 11/06/19 11:50 02/01/20 11:49 11/09/19 11:33 Insulin Detemir (Levemir) 12 units Q12HR SUBQ 11/06/19 21:00 02/03/20 20:59 11/09/19 08:49 Stas Garcia MD Nov 09, 2019 13:04
--- NOTE | 2019-11-09 13:05 | Pulmonology Progress Note ---
Subjective ROS Limited/Unobtainable: No Interval Events: None new Constitutional: Denies: fever HEENT: Repors: no symptoms Respiratory: Reports: dry cough, shortness of breath Cardiovascular: Reports: no symptoms Gastrointestinal/Abdominal: Reports: no symptoms Allergies: Coded Allergies: No Known Allergies (Unverified , 10/28/19) Objective Last 24 Hour Vital Signs Date Time Temp Pulse Resp B/P (MAP) Pulse Ox O2 Delivery O2 Flow Rate FiO2 11/09/19 09:00 Nasal Cannula 2.0 11/09/19 08:00 97.2 63 18 103/58 (73) 97 11/09/19 04:00 98.1 61 18 108/64 (79) 97 11/09/19 00:00 98.7 76 18 145/90 (108) 97 11/08/19 21:00 Nasal Cannula 2.0 11/08/19 20:00 98.9 70 20 105/58 (74) 96 11/08/19 16:00 97.7 66 20 107/56 (73) 96 Intake and Output 11/08/19 11/09/19 19:00 07:00 Intake Total 830 ml Output Total 500 ml 2000 ml Balance 330 ml -2000 ml Intake Oral 720 ml IV Total 110 ml Output Urine Total 500 ml 2000 ml General Appearance: no acute distress HEENT: normocephalic Respiratory: decreased breath sounds Cardiovascular: normal peripheral pulses Abdomen: normal bowel sounds Laboratory Tests 11/08/19 16:00: White Blood Count 13.6H, Red Blood Count 5.16, Hemoglobin 14.7, Hematocrit 44.5 , Mean Corpuscular Volume 86, Mean Corpuscular Hemoglobin 28.4, Mean Corpuscular Hemoglobin Concent 32.9, Red Cell Distribution Width 12.1, Platelet Count 178, Mean Platelet Volume 7.8, Neutrophils (%) (Auto) 65.7, Lymphocytes (% ) (Auto) 22.7, Monocytes (%) (Auto) 9.7, Eosinophils (%) (Auto) 1.0, Basophils ( %) (Auto) 0.9, Sodium Level 139, Potassium Level 3.5, Chloride Level 104, Carbon Dioxide Level 29, Anion Gap 6, Blood Urea Nitrogen 23H, Creatinine 0.8, Estimat Glomerular Filtration Rate > 60, Glucose Level 77, Calcium Level 8.8, Total Bilirubin 0.2, Aspartate Amino Transf (AST/SGOT) 25, Alanine Aminotransferase (ALT/SGPT) 36, Alkaline Phosphatase 107, Total Protein 6.5, Albumin 2.3L, Globulin 4.2, Albumin/Globulin Ratio 0.5L 11/09/19 05:55: POC Whole Blood Glucose 107H Current Medications Medications (Trade) Dose Ordered Sig/Roman Route PRN Reason Start Time Stop Time Status Last Admin Dose Admin Acetaminophen (Tylenol) 500 mg Q4H PRN ORAL Mild Pain (Pain Scale 1-3) 11/06/19 10:05 12/06/19 10:04 11/08/19 16:48 Dexamethasone Sodium Phosphate (Decadron 10mg/ ml Inj) 6 mg Q24H IV 11/06/19 17:00 11/13/19 16:59 11/08/19 16:48 Dextrose (Dextrose 50%) 25 ml Q30M PRN IV Hypoglycemia 11/06/19 10:30 01/31/20 08:29 Dextrose (Dextrose 50%) 50 ml Q30M PRN IV Hypoglycemia 11/06/19 10:30 01/31/20 08:29 Insulin Aspart (NovoLOG) BEFORE MEALS AND HS SUBQ 11/06/19 11:30 01/28/20 16:29 11/09/19 11:33 Insulin Aspart (NovoLOG) 8 units NOVOTIAC SUBQ 11/06/19 11:50 02/01/20 11:49 11/09/19 11:33 Insulin Detemir (Levemir) 12 units Q12HR SUBQ 11/06/19 21:00 02/03/20 20:59 11/09/19 08:49 Assessment/Plan Assessment/Plan Pulmonary Progress Note Subjective ] Interval Events: None new Constitutional: Denies: fever Respiratory: Reports: dry cough, shortness of breath Cardiovascular: Reports: no symptoms Gastrointestinal/Abdominal: Reports: no symptoms Allergies: Coded Allergies: No Known Allergies (Unverified , 10/28/19) Objective Vital Signs Noted Deferred Covid19 Laboratory Tests Noted Assessment/Plan IMPRESSION: 1. COVID-19 pneumonia, on PRN O2 - 2L/min NC -stable 2. H/o Diabetes mellitus. PLAN: Continue steroids, remdesivir ID following O2 PRN Self prone ventilation as tolerated Carlos Tarango MD Nov 09, 2019 13:05
--- NOTE | 2019-11-09 15:10 | Consultation ---
History of Present Illness General Date patient seen: Nov 09, 2019 Chief Complaint: Present Illness Allergies: Coded Allergies: No Known Allergies (Unverified , 10/28/19) Patient History Healthcare decision maker N Resuscitation status Advanced Directive on File Physical Exam Last 24 Hour Vital Signs Date Time Temp Pulse Resp B/P (MAP) Pulse Ox O2 Delivery O2 Flow Rate FiO2 11/09/19 12:00 96.3 56 17 104/59 (74) 98 11/09/19 09:00 Nasal Cannula 2.0 11/09/19 08:00 97.2 63 18 103/58 (73) 97 11/09/19 04:00 98.1 61 18 108/64 (79) 97 11/09/19 00:00 98.7 76 18 145/90 (108) 97 11/08/19 21:00 Nasal Cannula 2.0 11/08/19 20:00 98.9 70 20 105/58 (74) 96 11/08/19 16:00 97.7 66 20 107/56 (73) 96 Intake and Output 11/08/19 11/09/19 19:00 07:00 Intake Total 830 ml Output Total 500 ml 2000 ml Balance 330 ml -2000 ml Intake Oral 720 ml IV Total 110 ml Output Urine Total 500 ml 2000 ml Laboratory Tests Test 11/08/19 16:00 11/09/19 05:55 White Blood Count 13.6 K/UL (4.8-10.8) H Red Blood Count 5.16 M/UL (4.70-6.10) Hemoglobin 14.7 G/DL (14.2-18.0) Hematocrit 44.5 % (42.0-52.0) Mean Corpuscular Volume 86 FL (80-99) Mean Corpuscular Hemoglobin 28.4 PG (27.0-31.0) Mean Corpuscular Hemoglobin Concent 32.9 G/DL (32.0-36.0) Red Cell Distribution Width 12.1 % (11.6-14.8) Platelet Count 178 K/UL (150-450) Mean Platelet Volume 7.8 FL (6.5-10.1) Neutrophils (%) (Auto) 65.7 % (45.0-75.0) Lymphocytes (%) (Auto) 22.7 % (20.0-45.0) Monocytes (%) (Auto) 9.7 % (1.0-10.0) Eosinophils (%) (Auto) 1.0 % (0.0-3.0) Basophils (%) (Auto) 0.9 % (0.0-2.0) Sodium Level 139 MMOL/L (136-145) Potassium Level 3.5 MMOL/L (3.5-5.1) Chloride Level 104 MMOL/L (98-107) Carbon Dioxide Level 29 MMOL/L (21-32) Anion Gap 6 mmol/L (5-15) Blood Urea Nitrogen 23 mg/dL (7-18) H Creatinine 0.8 MG/DL (0.55-1.30) Estimat Glomerular Filtration Rate > 60 mL/min (>60) Glucose Level 77 MG/DL (74-106) Calcium Level 8.8 MG/DL (8.5-10.1) Total Bilirubin 0.2 MG/DL (0.2-1.0) Aspartate Amino Transf (AST/SGOT) 25 U/L (15-37) Alanine Aminotransferase (ALT/SGPT) 36 U/L (12-78) Alkaline Phosphatase 107 U/L (46-116) Total Protein 6.5 G/DL (6.4-8.2) Albumin 2.3 G/DL (3.4-5.0) L Globulin 4.2 g/dL Albumin/Globulin Ratio 0.5 (1.0-2.7) L POC Whole Blood Glucose 107 MG/DL (74-106) H Height (Feet): 5 Height (Inches): 7.00 Weight (Pounds): 119 Medications Current Medications Medications (Trade) Dose Ordered Sig/Roman Route PRN Reason Start Time Stop Time Status Last Admin Dose Admin Acetaminophen (Tylenol) 500 mg Q4H PRN ORAL Mild Pain (Pain Scale 1-3) 11/06/19 10:05 12/06/19 10:04 11/08/19 16:48 Dextrose (Dextrose 50%) 25 ml Q30M PRN IV Hypoglycemia 11/06/19 10:30 01/31/20 08:29 Dextrose (Dextrose 50%) 50 ml Q30M PRN IV Hypoglycemia 11/06/19 10:30 01/31/20 08:29 Insulin Aspart (NovoLOG) BEFORE MEALS AND HS SUBQ 11/06/19 11:30 01/28/20 16:29 11/09/19 11:33 Insulin Aspart (NovoLOG) 8 units NOVOTIAC SUBQ 11/06/19 11:50 02/01/20 11:49 11/09/19 11:33 Insulin Detemir (Levemir) 12 units Q12HR SUBQ 11/06/19 21:00 02/03/20 20:59 11/09/19 08:49 Assessment/Plan Assessment/Plan: (1) Acute respiratory disease due to COVID-19 virus (2) B/L LE pain d/o DVT seen dictated Ant Holloway Nov 09, 2019 15:10
--- NOTE | 2019-11-09 15:51 | NUR ---
NURSE NOTES: LESLEY BARRIENTOS (ARIADNE) AT BEDSIDE, MADE AWARE OF BILATERAL CALF PAIN 10/[address] THAPA'S ORDER FOR VENOUS DUPLEX OF BLE. NO CHANGES TO MEDICATION. KEEP PRN TYLENOL 500MG FOR PAIN PER LESLEY BARRIENTOS.
--- NOTE | 2019-11-09 17:00 | NUR ---
NURSE NOTES: RN SPOKE TO STEVENSON OWUSU, Nethub, AND MADE AWARE OF ORDER FOR VENOUS DUPLEX. PER STEVENSON OWUSU, ONLY STAT ORDERS TO BE DONE TODAY. MOST LIKELY WILL BE DONE TOMORROW PER STEVENSON OWUSU.
--- NOTE | 2019-11-09 17:40 | NUR ---
CASE MANAGEMENT:REVIEW 11/09/19 SI: COVID PNA 97.5 62 18 103/56 96% ON 2L/NC BUN+23 IS: LEVAMIR SQ Q12 SS INSULIN TID SQ : MED/SURG STATUS 4 EAST PLAN: VENOUS DUPLEX
[2019-11-09] MEDS ORDERED: NovoLOG Insulin Flexpen SUBQ SCH (18:00)
--- NOTE | 2019-11-09 19:15 | Consultation ---
DATE OF CONSULTATION: 11/09/2019 PAIN MANAGEMENT CONSULTATION CONSULTING PHYSICIAN: Waldemar Quinones MD. REFERRING PHYSICIAN: Nesha Damon MD. PHYSICIAN STUDENT RECRUITER: ARIADNE Car. CHIEF COMPLAINT: Bilateral calf pain. HISTORY OF PRESENT ILLNESS: This is a 64-year-old male, who is being seen on the Med/Surg floor of [facility] for initial pain management consultation. Patient was admitted into [facility] on 10/30/2019 from the emergency room and was found to be COVID positive and has been getting remdesivir and dexamethasone as per the court bailiff and the Infectious Diseases doctor. He has been complaining of bilateral calf pain. He will be seen by a graphic art technician/oncologist who has ordered the patient to get a venous duplex scan to rule out DVT of the lower extremity. At this time, patient is on Tylenol 500 mg tablet every 4 hours as needed for pain, which patient reports has been helping to this pain to tolerable level. We were consulted so that patient would have adequate pain control while here in the hospital. PAST MEDICAL HISTORY: Diabetes mellitus, GERD. PAST SURGICAL HISTORY: Denies. SOCIAL HISTORY: Denies smoking, drinking alcohol, or drug abuse. ALLERGIES: No known drug allergies. MEDICATIONS: No medication noted. REVIEW OF SYSTEMS: Denies rash, fever, chills, sweating, dizziness, drowsiness, blurred vision, sore throat, change in hearing or weight. No nausea, vomiting, diarrhea, blood in stool or urine. No dysuria. He is complaining of bilateral calf pain. PHYSICAL EXAMINATION: GENERAL: Alert, awake, and oriented. VITAL SIGNS: Blood pressure 104/59, heart rate is 56, oxygen saturation 98%, respiratory rate 17, temperature 96.3 degrees Fahrenheit. HEENT: PERRLA. NECK: Range of motion is decreased due to patient's condition. LUNGS: Decreased breath sounds bilaterally. HEART: S1 and S2 regular. ABDOMEN: Soft, nontender. BACK: Range of motion is decreased in flexion, extension. EXTREMITIES: UE and LE range of motion is decreased due to patient's condition. No cyanosis, no clubbing, no edema. Sensory is reduced. Reflexes are not obtainable. No neuropathy with bilateral calf tenderness to palpation. ASSESSMENT AND PLAN: This is a 64-year-old male with acute respiratory disease due to COVID-19, bilateral lower extremity pain. Rule out DVT. The patient will be continued on Tylenol as needed and venous ultrasound will be done to rule out any DVT. The patient was discussed with Dr. Quinones and Dr. Quinones concurred. We will follow the patient. Thank you very much for the courtesy of this consultation. Waldemar Quinones M.D. ARIADNE Car DR: LARRY JOB#: [id number] CC: LINDA
--- NOTE | 2019-11-09 19:37 | NUR ---
HAND-OFF: Report given to Karan YEPEZ RN.
--- NOTE | 2019-11-09 20:00 | NUR ---
NURSE NOTES: Patient received in bed, aox3-4, Divehi speaking. IV is intact. Assisted to ambulate to the restroom .Patient had BM, and assisted back to bed safely. Call light in reach. Will continue to monitor.
--- NOTE | 2019-11-09 21:17 | General Progress Note ---
Assessment/Plan Problem List: (1) Hyperglycemia ICD Codes: R73.9 - Hyperglycemia, unspecified; J06.9 - Acute upper respiratory infection, unspecified SNOMED: 25641545, 789265506, 157323680 (2) Acute respiratory disease due to COVID-19 virus ICD Codes: U07.1 - COVID-19; J06.9 - Acute upper respiratory infection, unspecified SNOMED: 792298076, 993142741, 597520123 Status: progressing Assessment/Plan: reviewed chart and labs afebrile covid positive pna positive blood cx weak malnutrition Subjective ROS Limited/Unobtainable: Yes Allergies: Coded Allergies: No Known Allergies (Unverified , 10/28/19) Objective Last 24 Hour Vital Signs Date Time Temp Pulse Resp B/P (MAP) Pulse Ox O2 Delivery O2 Flow Rate FiO2 11/09/19 16:00 97.5 62 18 103/56 (72) 96 11/09/19 12:00 96.3 56 17 104/59 (74) 98 11/09/19 09:00 Nasal Cannula 2.0 11/09/19 08:00 97.2 63 18 103/58 (73) 97 11/09/19 04:00 98.1 61 18 108/64 (79) 97 11/09/19 00:00 98.7 76 18 145/90 (108) 97 Intake and Output 11/08/19 11/09/19 19:00 07:00 Intake Total 830 ml Output Total 500 ml 2000 ml Balance 330 ml -2000 ml Intake Oral 720 ml IV Total 110 ml Output Urine Total 500 ml 2000 ml Laboratory Tests 11/09/19 05:55: POC Whole Blood Glucose 107H 11/09/19 16:01: POC Whole Blood Glucose 170H Height (Feet): 5 Height (Inches): 7.00 Weight (Pounds): 119 Nesha Damon MD Nov 09, 2019 21:17
[2019-11-10 03:28] VITALS: BP 95/59
[2019-11-10] MEDS: NovoLOG Insulin Flexpen SUBQ SCH ×5 (06:13→21:55)
--- NOTE | 2019-11-10 06:21 | NUR ---
NURSE NOTES: Spoke with Dr. Ochoa re: patient's FBS at 0600= 88. No s/s of hypoglycemia. Dr. Ochoa made aware of today's BS=88 and last night's BS of 95, novolog and levemir both not given last night. Per Dr. Ochoa, do not give mealtime insulin also and he will change his order in the system later.
--- NOTE | 2019-11-10 06:37 | General Progress Note ---
Assessment/Plan Problem List: (1) Acute respiratory disease due to COVID-19 virus ICD Codes: U07.1 - COVID-19; J06.9 - Acute upper respiratory infection, unspecified SNOMED: 541624953, 817709155, 781324680 (2) Hyperglycemia ICD Codes: R73.9 - Hyperglycemia, unspecified; J06.9 - Acute upper respiratory infection, unspecified SNOMED: 88012901, 764542864, [id number] Status: progressing Assessment/Plan: DC scheduled Levemir and Novolog continue Novolog sliding scale ac / hs Subjective Allergies: Coded Allergies: No Known Allergies (Unverified , 10/28/19) Subjective events noted glucose values trending down Item Value Date Time Bedside Blood Glucose 116 mg/dl 11/07/19 0640 Bedside Blood Glucose 293 mg/dl H 11/06/19 2126 Bedside Blood Glucose 173 mg/dl H 11/06/19 1651 Bedside Blood Glucose 185 mg/dl H 11/06/19 1150 Bedside Blood Glucose 118 mg/dl 11/06/19 0858 Bedside Blood Glucose 191 mg/dl H 11/06/19 0624 Bedside Blood Glucose 88 mg/dl 11/10/19 0620 Bedside Blood Glucose 95 mg/dl 11/09/19 2100 Bedside Blood Glucose 170 mg/dl H 11/09/19 1651 Bedside Blood Glucose 221 mg/dl H 11/09/19 1133 Bedside Blood Glucose 107 mg/dl 11/09/19 0849 Bedside Blood Glucose 107 mg/dl 11/09/19 0610 Objective Last 24 Hour Vital Signs Date Time Temp Pulse Resp B/P (MAP) Pulse Ox O2 Delivery O2 Flow Rate FiO2 11/10/19 03:28 97.7 58 18 95/59 (71) 97 11/09/19 23:46 96.3 58 18 116/63 (80) 94 11/09/19 21:00 Nasal Cannula 2.0 11/09/19 20:00 97.9 62 18 96/55 (69) 99 11/09/19 16:00 97.5 62 18 103/56 (72) 96 11/09/19 12:00 96.3 56 17 104/59 (74) 98 11/09/19 09:00 Nasal Cannula 2.0 11/09/19 08:00 97.2 63 18 103/58 (73) 97 Intake and Output 11/09/19 11/10/19 19:00 07:00 Intake Total 600 ml 400 ml Output Total 300 ml 1100 ml Balance 300 ml -700 ml Intake Oral 600 ml 400 ml Output Urine Total 300 ml 1100 ml # Voids 3 # Bowel Movements 1 Laboratory Tests 11/09/19 16:01: POC Whole Blood Glucose 170H Height (Feet): 5 Height (Inches): 7.00 Weight (Pounds): 119 Objective Current Medications Medications (Trade) Dose Ordered Sig/Roman Route PRN Reason Start Time Stop Time Status Last Admin Dose Admin Acetaminophen (Tylenol) 500 mg Q4H PRN ORAL Mild Pain (Pain Scale 1-3) 11/06/19 10:05 12/06/19 10:04 11/08/19 16:48 Dextrose (Dextrose 50%) 25 ml Q30M PRN IV Hypoglycemia 11/06/19 10:30 01/31/20 08:29 Dextrose (Dextrose 50%) 50 ml Q30M PRN IV Hypoglycemia 11/06/19 10:30 01/31/20 08:29 Insulin Aspart (NovoLOG) BEFORE MEALS AND HS SUBQ 11/06/19 11:30 01/28/20 16:29 11/09/19 16:43 Insulin Aspart (NovoLOG) 8 units NOVOTIAC SUBQ 11/06/19 11:50 02/01/20 11:49 11/09/19 16:51 Insulin Detemir (Levemir) 12 units Q12HR SUBQ 11/06/19 21:00 02/03/20 20:59 11/09/19 08:49 Aram Ochoa MD Nov 10, 2019 06:37
--- NOTE | 2019-11-10 07:33 | NUR ---
HAND-OFF: Report given to Kristin PRASAD.
--- NOTE | 2019-11-10 07:55 | NUR ---
NURSE NOTES: Report received from OSMAR Rowley. Patient in bed, A and O x 3-4, no SOB, bed in lowest position with alarm on and breaks engaged, IV line on right forearm patent and intact, on 02 via NC at 2 lpm, on droplet and contact isolation for COVID 19, denies any pain or discomfort at this time, will continue to monitor and proceed with plan of care, call light within reach.
[2019-11-10 08:00] VITALS: BP 111/67
--- NOTE | 2019-11-10 08:42 | Pulmonology Progress Note ---
Subjective ROS Limited/Unobtainable: Yes Interval Events: None new Constitutional: Denies: fever HEENT: Repors: no symptoms Respiratory: Reports: dry cough, shortness of breath Cardiovascular: Reports: no symptoms Gastrointestinal/Abdominal: Reports: no symptoms Allergies: Coded Allergies: No Known Allergies (Unverified , 10/28/19) Objective Last 24 Hour Vital Signs Date Time Temp Pulse Resp B/P (MAP) Pulse Ox O2 Delivery O2 Flow Rate FiO2 11/10/19 08:00 98.4 65 18 111/67 (82) 98 11/10/19 03:28 97.7 58 18 95/59 (71) 97 11/09/19 23:46 96.3 58 18 116/63 (80) 94 11/09/19 21:00 Nasal Cannula 2.0 11/09/19 20:00 97.9 62 18 96/55 (69) 99 11/09/19 16:00 97.5 62 18 103/56 (72) 96 11/09/19 12:00 96.3 56 17 104/59 (74) 98 11/09/19 09:00 Nasal Cannula 2.0 Intake and Output 11/09/19 11/10/19 19:00 07:00 Intake Total 600 ml 400 ml Output Total 300 ml 1100 ml Balance 300 ml -700 ml Intake Oral 600 ml 400 ml Output Urine Total 300 ml 1100 ml # Voids 3 # Bowel Movements 1 General Appearance: no acute distress HEENT: normocephalic Respiratory: decreased breath sounds Cardiovascular: normal peripheral pulses Abdomen: normal bowel sounds Laboratory Tests 11/09/19 16:01: POC Whole Blood Glucose 170H Current Medications Medications (Trade) Dose Ordered Sig/Roman Route PRN Reason Start Time Stop Time Status Last Admin Dose Admin Acetaminophen (Tylenol) 500 mg Q4H PRN ORAL Mild Pain (Pain Scale 1-3) 11/06/19 10:05 12/06/19 10:04 11/08/19 16:48 Dextrose (Dextrose 50%) 25 ml Q30M PRN IV Hypoglycemia 11/06/19 10:30 01/31/20 08:29 Dextrose (Dextrose 50%) 50 ml Q30M PRN IV Hypoglycemia 11/06/19 10:30 01/31/20 08:29 Insulin Aspart (NovoLOG) BEFORE MEALS AND HS SUBQ 11/06/19 11:30 01/28/20 16:29 11/09/19 16:43 Assessment/Plan Assessment/Plan IMPRESSION: 1. Hypoxemia. 2. COVID-19 pneumonia. 3. Diabetes mellitus. DISCUSSION: Continue steroids, remdesivir, fluids. Continue nonrebreather mask. Now on 2L/mi I will follow. Dajuan Bragg Omar Syed MD Nov 10, 2019 08:42
--- NOTE | 2019-11-10 08:58 | Cardiac Electrophysiology PN ---
Assessment/Plan Assessment/Plan 1. Mild bradycardia with HR 50s. 2. PACs with no atrial fib 3. COVID pneumonia. S/P Remdesivir treatment. EF 60%. No Clinical CHF Completed Dexamethasone and Ceftriaxone Now off abx and steroids 4. Uncontrolled diabetes. On insulin per Dr. Ochoa. DW RN Subjective Subjective In Covid isolation. Comfortable in NAD off tele on nasal cannula Objective Last 24 Hour Vital Signs Date Time Temp Pulse Resp B/P (MAP) Pulse Ox O2 Delivery O2 Flow Rate FiO2 11/10/19 08:00 98.4 65 18 111/67 (82) 98 11/10/19 03:28 97.7 58 18 95/59 (71) 97 11/09/19 23:46 96.3 58 18 116/63 (80) 94 11/09/19 21:00 Nasal Cannula 2.0 11/09/19 20:00 97.9 62 18 96/55 (69) 99 11/09/19 16:00 97.5 62 18 103/56 (72) 96 11/09/19 12:00 96.3 56 17 104/59 (74) 98 11/09/19 09:00 Nasal Cannula 2.0 Intake and Output 11/09/19 11/10/19 19:00 07:00 Intake Total 600 ml 400 ml Output Total 300 ml 1100 ml Balance 300 ml -700 ml Intake Oral 600 ml 400 ml Output Urine Total 300 ml 1100 ml # Voids 3 # Bowel Movements 1 Laboratory Tests Test 11/09/19 16:01 POC Whole Blood Glucose 170 MG/DL (74-106) H Objective HEAD AND NECK: No JVD. LUNGS: Clear. CARDIOVASCULAR: Regular S1 and S2 with no gallop or murmur. ABDOMEN: Soft. EXTREMITIES: No pitting edema. Mohsen Epps MD Nov 10, 2019 08:58
--- NOTE | 2019-11-10 09:52 | General Progress Note ---
Assessment/Plan Assessment/Plan: (1) Acute respiratory disease due to COVID-19 virus (2) B/L LE pain d/o DVT Pt will be continued on Tylenol. D/w Dr. Quinones and he concurred. Subjective Date patient seen: Nov 10, 2019 Time patient seen: 09:00 - am Constitutional: Reports: weakness HEENT: Reports: no symptoms Cardiovascular: Reports: no symptoms Respiratory: Reports: shortness of breath Gastrointestinal/Abdominal: Reports: no symptoms Genitourinary: Reports: no symptoms Neurologic/Psychiatric: Reports: no symptoms Endocrine: Reports: no symptoms Hematologic/Lymphatic: Reports: no symptoms Allergies: Coded Allergies: No Known Allergies (Unverified , 10/28/19) Subjective In bed resting. No signs of pain or distress. Objective Last 24 Hour Vital Signs Date Time Temp Pulse Resp B/P (MAP) Pulse Ox O2 Delivery O2 Flow Rate FiO2 11/10/19 08:00 98.4 65 18 111/67 (82) 98 11/10/19 03:28 97.7 58 18 95/59 (71) 97 11/09/19 23:46 96.3 58 18 116/63 (80) 94 11/09/19 21:00 Nasal Cannula 2.0 11/09/19 20:00 97.9 62 18 96/55 (69) 99 11/09/19 16:00 97.5 62 18 103/56 (72) 96 11/09/19 12:00 96.3 56 17 104/59 (74) 98 Intake and Output 11/09/19 11/10/19 19:00 07:00 Intake Total 600 ml 400 ml Output Total 300 ml 1100 ml Balance 300 ml -700 ml Intake Oral 600 ml 400 ml Output Urine Total 300 ml 1100 ml # Voids 3 # Bowel Movements 1 Laboratory Tests 11/09/19 16:01: POC Whole Blood Glucose 170H Height (Feet): 5 Height (Inches): 7.00 Weight (Pounds): 119 General Appearance: no apparent distress, alert EENT: PERRL/EOMI, normal ENT inspection Neck: non-tender, normal alignment Cardiovascular: normal rate, regular rhythm Respiratory/Chest: decreased breath sounds Abdomen: non tender, soft Extremities: non-tender Edema: no edema noted Generalized Neurologic: alert, responsive Skin: normal pigmentation Ant Holloway Nov 10, 2019 09:52
--- NOTE | 2019-11-10 10:58 | Infectious Diseases Prog Note ---
Assessment/Plan Assessment/Plan IMPRESSION: COVID-19 pneumonia, stable CXR Hypoxemia, improving Uncontrolled diabetes mellitus, Hyponatremia. RECOMMENDATION: Finished remdesivir Can be discharged whenever off of oxygen Subjective ROS Limited/Unobtainable: Yes Constitutional: Reports: no symptoms Respiratory: Reports: productive cough Musculoskeletal: Reports: pain, other - in knees Allergies: Coded Allergies: No Known Allergies (Unverified , 10/28/19) Objective Last 24 Hour Vital Signs Date Time Temp Pulse Resp B/P (MAP) Pulse Ox O2 Delivery O2 Flow Rate FiO2 11/10/19 09:00 Nasal Cannula 2.0 11/10/19 08:00 98.4 65 18 111/67 (82) 98 11/10/19 03:28 97.7 58 18 95/59 (71) 97 11/09/19 23:46 96.3 58 18 116/63 (80) 94 11/09/19 21:00 Nasal Cannula 2.0 11/09/19 20:00 97.9 62 18 96/55 (69) 99 11/09/19 16:00 97.5 62 18 103/56 (72) 96 11/09/19 12:00 96.3 56 17 104/59 (74) 98 Height (Feet): 5 Height (Inches): 7.00 Weight (Pounds): 119 HEENT: mucous membranes moist Respiratory/Chest: lungs clear, other - oxygen by nasal cannula Cardiovascular: normal rate Abdomen: soft, non tender Extremities: no edema Neurologic/Psychiatric: alert, responsive Musculoskeletal: atrophy Laboratory Tests Test 11/09/19 16:01 POC Whole Blood Glucose 170 MG/DL (74-106) H Current Medications Medications (Trade) Dose Ordered Sig/Roman Route PRN Reason Start Time Stop Time Status Last Admin Dose Admin Acetaminophen (Tylenol) 500 mg Q4H PRN ORAL Mild Pain (Pain Scale 1-3) 11/06/19 10:05 12/06/19 10:04 11/08/19 16:48 Dextrose (Dextrose 50%) 25 ml Q30M PRN IV Hypoglycemia 11/06/19 10:30 01/31/20 08:29 Dextrose (Dextrose 50%) 50 ml Q30M PRN IV Hypoglycemia 11/06/19 10:30 01/31/20 08:29 Insulin Aspart (NovoLOG) BEFORE MEALS AND HS SUBQ 11/06/19 11:30 01/28/20 16:29 11/09/19 16:43 Stas Garcia MD Nov 10, 2019 10:58
--- NOTE | 2019-11-10 11:57 | Consultation ---
History of Present Illness General Chief Complaint: Back Pain-No Injury Present Illness Allergies: Coded Allergies: No Known Allergies (Unverified , 10/28/19) Patient History Healthcare decision maker N Resuscitation status Advanced Directive on File Physical Exam Last 24 Hour Vital Signs Date Time Temp Pulse Resp B/P (MAP) Pulse Ox O2 Delivery O2 Flow Rate FiO2 11/10/19 09:00 Nasal Cannula 2.0 11/10/19 08:00 98.4 65 18 111/67 (82) 98 11/10/19 03:28 97.7 58 18 95/59 (71) 97 11/09/19 23:46 96.3 58 18 116/63 (80) 94 11/09/19 21:00 Nasal Cannula 2.0 11/09/19 20:00 97.9 62 18 96/55 (69) 99 11/09/19 16:00 97.5 62 18 103/56 (72) 96 11/09/19 12:00 96.3 56 17 104/59 (74) 98 Intake and Output 11/09/19 11/10/19 19:00 07:00 Intake Total 600 ml 400 ml Output Total 300 ml 1100 ml Balance 300 ml -700 ml Intake Oral 600 ml 400 ml Output Urine Total 300 ml 1100 ml # Voids 3 # Bowel Movements 1 Laboratory Tests Test 11/09/19 16:01 POC Whole Blood Glucose 170 MG/DL (74-106) H Height (Feet): 5 Height (Inches): 7.00 Weight (Pounds): 119 Medications Current Medications Medications (Trade) Dose Ordered Sig/Roman Route PRN Reason Start Time Stop Time Status Last Admin Dose Admin Acetaminophen (Tylenol) 500 mg Q4H PRN ORAL Mild Pain (Pain Scale 1-3) 11/06/19 10:05 12/06/19 10:04 11/08/19 16:48 Dextrose (Dextrose 50%) 25 ml Q30M PRN IV Hypoglycemia 11/06/19 10:30 01/31/20 08:29 Dextrose (Dextrose 50%) 50 ml Q30M PRN IV Hypoglycemia 11/06/19 10:30 01/31/20 08:29 Insulin Aspart (NovoLOG) BEFORE MEALS AND HS SUBQ 11/06/19 11:30 01/28/20 16:29 11/10/19 11:40 Assessment/Plan Assessment/Plan: Hematology Consultation REQ MD: Bobby Stoll RFC: Lower ext edema eval DOS 11/10/2019 HPI 64-year-old male presents to the emergency department with a complaint of generalized weakness. He also reports intermittent cough for several days. He denies fevers or chills. Patient states he has not seen a primary care doctor in over 5 months. He denies significant past medical history. He reports 4 out of 10 severity bilateral leg aching pains x2 months. Patient denies trauma or fall. He denies back pain. He denies shortness of breath or chest pain. He denies palpitations or dizziness. Noted to be coivd19, s/p remdesivir, with covid19, on iso, labs noted, no bleeding Allergies: No Known Allergies (Unverified , 10/28/19) COVID-19 Screening Contact w/high risk pt: No Experienced COVID-19 symptoms?: No COVID-19 Testing performed TOWER SUPERVISOR: No Patient History Past Medical History: see triage record Past Surgical History: none Pertinent Family History: none Reviewed Nursing Documentation: PMH: Agreed; PSxH: Agreed Nursing Documentation-PMH Past Medical History: No Stated History Review of Systems All Other Systems: negative except mentioned in HPI Physical Exam: Vitals: reviewed General: NAD HEENT: nc, at Neck: supple Chest: clear breath sounds bilaterally Cardiovascular: RRR, no s3, s4 Abdomen: soft, nontender, nd Extremities: no cce, normal range of motion Neuro: alert and oriented Labs noted Imaging none noted Assessment and Recs # Lower extremity pain with swelling --> have ordered duplex lower extremity --> for now continue on anticoagulation ppx # Covid 19 pna --> sp remdesivir --> steriods prn --> per pulm recs # Hyperglycemia --> as per endo eval # Generalized weakness. --> likely covid19 related # Hypoxia --> due ot above, on 2 lcn The timing of this note does not necessarily reflect the time of the patient was seen. Greatly appreciate consultation. Roldan Tobin MD Nov 10, 2019 11:57
[2019-11-10 12:00] VITALS: BP 102/66
[2019-11-10 16:00] VITALS: BP 110/65
--- NOTE | 2019-11-10 19:45 | NUR ---
HAND-OFF: Report given to OSMAR Irene.
--- NOTE | 2019-11-10 19:46 | NUR ---
NURSE NOTES: Patient received in bed, A/O 3-4, English speaking only. IV is intact, patent asymptomatic. Able to ambulate with assistance. Pt is currently sitting up in bed, it is locked in lowest position, side rails x3. Call light in reach. Will continue to monitor.
[2019-11-10 20:00] VITALS: BP 110/66
--- NOTE | 2019-11-10 21:38 | General Progress Note ---
Assessment/Plan Problem List: (1) Hyperglycemia ICD Codes: R73.9 - Hyperglycemia, unspecified; J06.9 - Acute upper respiratory infection, unspecified SNOMED: 93769715, 647570526, 023534425 (2) Acute respiratory disease due to COVID-19 virus ICD Codes: U07.1 - COVID-19; J06.9 - Acute upper respiratory infection, unspecified SNOMED: 349809357, 845103145, 645527046 Assessment/Plan: covid positive pna s/p hypoxic needs supportive care Subjective ROS Limited/Unobtainable: Yes Allergies: Coded Allergies: No Known Allergies (Unverified , 10/28/19) Objective Last 24 Hour Vital Signs Date Time Temp Pulse Resp B/P (MAP) Pulse Ox O2 Delivery O2 Flow Rate FiO2 11/10/19 16:00 97.8 68 18 110/65 (80) 98 11/10/19 12:00 98.1 66 18 102/66 (78) 98 11/10/19 09:00 Nasal Cannula 2.0 11/10/19 08:00 98.4 65 18 111/67 (82) 98 11/10/19 03:28 97.7 58 18 95/59 (71) 97 11/09/19 23:46 96.3 58 18 116/63 (80) 94 Intake and Output 11/09/19 11/10/19 19:00 07:00 Intake Total 600 ml 400 ml Output Total 300 ml 1100 ml Balance 300 ml -700 ml Intake Oral 600 ml 400 ml Output Urine Total 300 ml 1100 ml # Voids 3 # Bowel Movements 1 Height (Feet): 5 Height (Inches): 7.00 Weight (Pounds): 119 Nesha Damon MD Nov 10, 2019 21:38
[2019-11-11] VITALS: BP 95/60
[2019-11-11 04:00] VITALS: BP 110/61
[2019-11-11] MEDS: NovoLOG Insulin Flexpen SUBQ SCH ×4 (06:30→21:39)
--- NOTE | 2019-11-11 06:49 | General Progress Note ---
Assessment/Plan Problem List: (1) Acute respiratory disease due to COVID-19 virus ICD Codes: U07.1 - COVID-19; J06.9 - Acute upper respiratory infection, unspecified SNOMED: 671275459, 363380988, 242086532 (2) Hyperglycemia ICD Codes: R73.9 - Hyperglycemia, unspecified; J06.9 - Acute upper respiratory infection, unspecified SNOMED: 85785843, 783911603, 528479106 Assessment/Plan: start Metformin 500 mg bid start Januvia 100 mg daily continue Novolog sliding scale ac / hs Subjective Allergies: Coded Allergies: No Known Allergies (Unverified , 10/28/19) Subjective events noted glucose values are elevated Item Value Date Time Bedside Blood Glucose 230 mg/dl H 11/10/19 2155 Bedside Blood Glucose 228 mg/dl H 11/10/19 1655 Bedside Blood Glucose 150 mg/dl H 11/10/19 1140 Bedside Blood Glucose 88 mg/dl 11/10/19 0620 Objective Last 24 Hour Vital Signs Date Time Temp Pulse Resp B/P (MAP) Pulse Ox O2 Delivery O2 Flow Rate FiO2 11/11/19 04:00 97.5 62 20 110/61 (77) 99 11/11/19 00:00 98.2 70 20 95/60 (72) 98 11/10/19 21:00 Nasal Cannula 2.0 11/10/19 20:00 98.6 71 20 110/66 (81) 98 11/10/19 16:00 97.8 68 18 110/65 (80) 98 11/10/19 12:00 98.1 66 18 102/66 (78) 98 11/10/19 09:00 Nasal Cannula 2.0 11/10/19 08:00 98.4 65 18 111/67 (82) 98 Intake and Output 11/10/19 11/11/19 19:00 07:00 Intake Total 840 ml 300 ml Output Total 1000 ml Balance -160 ml 300 ml Intake Oral 840 ml 300 ml Output Urine Total 1000 ml # Voids 5 Laboratory Tests 11/11/19 06:30: White Blood Count [Pending], Red Blood Count [Pending], Hemoglobin [Pending], Hematocrit [Pending], Mean Corpuscular Volume [Pending], Mean Corpuscular Hemoglobin [Pending], Mean Corpuscular Hemoglobin Concent [Pending], Red Cell Distribution Width [Pending], Platelet Count [Pending], Mean Platelet Volume [ Pending], Neutrophils (%) (Auto) [Pending], Lymphocytes (%) (Auto) [Pending], Monocytes (%) (Auto) [Pending], Eosinophils (%) (Auto) [Pending], Basophils (%) (Auto) [Pending] Height (Feet): 5 Height (Inches): 7.00 Weight (Pounds): 119 Objective Current Medications Medications (Trade) Dose Ordered Sig/Roman Route PRN Reason Start Time Stop Time Status Last Admin Dose Admin Acetaminophen (Tylenol) 500 mg Q4H PRN ORAL Mild Pain (Pain Scale 1-3) 11/06/19 10:05 12/06/19 10:04 11/08/19 16:48 Dextrose (Dextrose 50%) 25 ml Q30M PRN IV Hypoglycemia 11/06/19 10:30 01/31/20 08:29 Dextrose (Dextrose 50%) 50 ml Q30M PRN IV Hypoglycemia 11/06/19 10:30 01/31/20 08:29 Enoxaparin Sodium (Lovenox) 40 mg DAILY SUBQ 11/11/19 09:00 02/09/20 08:59 Insulin Aspart (NovoLOG) BEFORE MEALS AND HS SUBQ 11/06/19 11:30 01/28/20 16:29 11/10/19 21:55 Aram Ochoa MD Nov 11, 2019 06:49
[2019-11-11 06:55] LABS: BASOPHILS % (AUTO) 0.7 % (0.0-2.0); EOSINOPHILS % (AUTO) 2.7 % (0.0-3.0); HEMATOCRIT 49.1 % (42.0-52.0); HEMOGLOBIN 15.7 G/DL (14.2-18.0); LYMPHOCYTES % (AUTO) 17.8 % (20.0-45.0); MEAN CORPUSCULAR VOLUME 87 FL (80-99); NEUTROPHILS % (AUTO) 71.8 % (45.0-75.0); PLATELET COUNT 128 K/UL (150-450); RED BLOOD COUNT 5.63 M/UL (4.70-6.10); RED CELL DISTRIBUTION WIDTH 11.8 % (11.6-14.8); WHITE BLOOD COUNT 7.5 K/UL (4.8-10.8)
[2019-11-11 08:00] VITALS: BP 108/66
--- NOTE | 2019-11-11 08:20 | NUR ---
NURSE NOTES: Received report from april Gonzalez RN. Patient is in stable condition.
--- NOTE | 2019-11-11 08:35 | General Progress Note ---
Assessment/Plan Assessment/Plan: (1) Acute respiratory disease due to COVID-19 virus (2) B/L LE pain d/o DVT Pt will be continued on Tylenol. D/w Dr. Quinones and he concurred. Subjective Date patient seen: Nov 11, 2019 Time patient seen: 07:45 - am Constitutional: Reports: weakness HEENT: Reports: no symptoms Cardiovascular: Reports: no symptoms Respiratory: Reports: shortness of breath Gastrointestinal/Abdominal: Reports: no symptoms Genitourinary: Reports: no symptoms Neurologic/Psychiatric: Reports: no symptoms Endocrine: Reports: no symptoms Hematologic/Lymphatic: Reports: no symptoms Allergies: Coded Allergies: No Known Allergies (Unverified , 10/28/19) Subjective Pain stable on the Tylenol, no new complaints at this time. Objective Last 24 Hour Vital Signs Date Time Temp Pulse Resp B/P (MAP) Pulse Ox O2 Delivery O2 Flow Rate FiO2 11/11/19 04:00 97.5 62 20 110/61 (77) 99 11/11/19 00:00 98.2 70 20 95/60 (72) 98 11/10/19 21:00 Nasal Cannula 2.0 11/10/19 20:00 98.6 71 20 110/66 (81) 98 11/10/19 16:00 97.8 68 18 110/65 (80) 98 11/10/19 12:00 98.1 66 18 102/66 (78) 98 11/10/19 09:00 Nasal Cannula 2.0 Intake and Output 11/10/19 11/11/19 19:00 07:00 Intake Total 840 ml 300 ml Output Total 1000 ml Balance -160 ml 300 ml Intake Oral 840 ml 300 ml Output Urine Total 1000 ml # Voids 5 Laboratory Tests 11/11/19 06:30: White Blood Count 7.5, Red Blood Count 5.63, Hemoglobin 15.7, Hematocrit 49.1, Mean Corpuscular Volume 87, Mean Corpuscular Hemoglobin 28.0, Mean Corpuscular Hemoglobin Concent 32.1, Red Cell Distribution Width 11.8, Platelet Count 128L, Mean Platelet Volume 7.6, Neutrophils (%) (Auto) 71.8, Lymphocytes (%) (Auto) 17.8L, Monocytes (%) (Auto) 7.0, Eosinophils (%) (Auto) 2.7, Basophils (%) (Auto ) 0.7 Height (Feet): 5 Height (Inches): 7.00 Weight (Pounds): 119 General Appearance: no apparent distress, alert EENT: PERRL/EOMI, normal ENT inspection Neck: non-tender, normal alignment Cardiovascular: normal rate, regular rhythm Respiratory/Chest: decreased breath sounds Abdomen: non tender, soft Extremities: non-tender Edema: no edema noted Generalized Neurologic: alert, responsive Skin: warm/dry Ant Holloway Nov 11, 2019 08:34
[2019-11-11] MEDS ORDERED: Enoxaparin 40mg Inj SUBQ SCH (09:00)
[2019-11-11] MEDS: metFORMIN 500mg tab ORAL SCH ×2 (09:45→17:18)
--- NOTE | 2019-11-11 10:49 | Cardiac Electrophysiology PN ---
Assessment/Plan Assessment/Plan 1. Mild bradycardia with HR 50s. 2. PACs with no atrial fib 3. COVID pneumonia. S/P Remdesivir treatment. EF 60%. No Clinical CHF Completed Dexamethasone and Ceftriaxone 4. Uncontrolled diabetes. On insulin per Dr. Ochoa. DW RN DC planning Subjective Subjective In Covid isolation. Comfortable in NAD off tele on nasal cannula Objective Last 24 Hour Vital Signs Date Time Temp Pulse Resp B/P (MAP) Pulse Ox O2 Delivery O2 Flow Rate FiO2 11/11/19 04:00 97.5 62 20 110/61 (77) 99 11/11/19 00:00 98.2 70 20 95/60 (72) 98 11/10/19 21:00 Nasal Cannula 2.0 11/10/19 20:00 98.6 71 20 110/66 (81) 98 11/10/19 16:00 97.8 68 18 110/65 (80) 98 11/10/19 12:00 98.1 66 18 102/66 (78) 98 Intake and Output 11/10/19 11/11/19 19:00 07:00 Intake Total 840 ml 300 ml Output Total 1000 ml Balance -160 ml 300 ml Intake Oral 840 ml 300 ml Output Urine Total 1000 ml # Voids 5 Laboratory Tests Test 11/11/19 06:30 White Blood Count 7.5 K/UL (4.8-10.8) Red Blood Count 5.63 M/UL (4.70-6.10) Hemoglobin 15.7 G/DL (14.2-18.0) Hematocrit 49.1 % (42.0-52.0) Mean Corpuscular Volume 87 FL (80-99) Mean Corpuscular Hemoglobin 28.0 PG (27.0-31.0) Mean Corpuscular Hemoglobin Concent 32.1 G/DL (32.0-36.0) Red Cell Distribution Width 11.8 % (11.6-14.8) Platelet Count 128 K/UL (150-450) L Mean Platelet Volume 7.6 FL (6.5-10.1) Neutrophils (%) (Auto) 71.8 % (45.0-75.0) Lymphocytes (%) (Auto) 17.8 % (20.0-45.0) L Monocytes (%) (Auto) 7.0 % (1.0-10.0) Eosinophils (%) (Auto) 2.7 % (0.0-3.0) Basophils (%) (Auto) 0.7 % (0.0-2.0) Objective HEAD AND NECK: No JVD. LUNGS: Clear. CARDIOVASCULAR: Regular S1 and S2 with no gallop or murmur. ABDOMEN: Soft. EXTREMITIES: No pitting edema. Mohsen Epps MD Nov 11, 2019 10:49
--- NOTE | 2019-11-11 10:58 | NUR ---
RD ASSESSMENT & RECOMMENDATIONS SEE CARE ACTIVITY FOR COMPLETE ASSESSMENT DAILY ESTIMATED NEEDS: Needs based on Pulmonary, DM 66kg 25-30 kcals/kg 5292-8267 total kcals 1-1.5 g protein/kg 66-99 g total protein 25-30 mL/kg 4697-9475 total fluid mLs NUTRITION DIAGNOSIS: Altered nutrition related lab values r/t diabetes as evidenced by A1C 10.9, BG on adm 3-400's, now improved. CURRENT DIET:CCHO Med ms finely chopped PO DIET RECOMMENDATIONS: CCHO LOW / texture per EMPLOYEE BENEFITS COORDINATOR + 1 carb/ high pro snack in b/w meals ADDITIONAL RECOMMENDATIONS: 1) Obtain a calibrated bed scale wt as able 2) Diet recs as above for glycemic control 3) Add snacks in b/w meals, 1 carb/ high pro as needed -> Encourage HS snack to prevent am hypoglycemia 4) Consider EMPLOYEE BENEFITS COORDINATOR eval for texture upgrade 5) Check BG 1hr prior to each meal to monitor for hypoglycemia 6) Brandan BID for skin integrity
[2019-11-11 12:00] VITALS: BP 106/63
--- NOTE | 2019-11-11 12:06 | Pulmonology Progress Note ---
Subjective ROS Limited/Unobtainable: Yes Interval Events: None new Constitutional: Reports: no symptoms HEENT: Repors: no symptoms Respiratory: Reports: dry cough, shortness of breath Cardiovascular: Reports: no symptoms Gastrointestinal/Abdominal: Reports: no symptoms Musculoskeletal: Reports: pain, other - in knees Allergies: Coded Allergies: No Known Allergies (Unverified , 10/28/19) Objective Last 24 Hour Vital Signs Date Time Temp Pulse Resp B/P (MAP) Pulse Ox O2 Delivery O2 Flow Rate FiO2 11/11/19 09:00 Nasal Cannula 2.0 11/11/19 08:00 97.6 69 18 108/66 (80) 98 11/11/19 04:00 97.5 62 20 110/61 (77) 99 11/11/19 00:00 98.2 70 20 95/60 (72) 98 11/10/19 21:00 Nasal Cannula 2.0 11/10/19 20:00 98.6 71 20 110/66 (81) 98 11/10/19 16:00 97.8 68 18 110/65 (80) 98 Intake and Output 11/10/19 11/11/19 19:00 07:00 Intake Total 840 ml 300 ml Output Total 1000 ml Balance -160 ml 300 ml Intake Oral 840 ml 300 ml Output Urine Total 1000 ml # Voids 5 General Appearance: no acute distress HEENT: normocephalic Respiratory: decreased breath sounds Cardiovascular: normal peripheral pulses Abdomen: normal bowel sounds Laboratory Tests 11/11/19 06:30: White Blood Count 7.5, Red Blood Count 5.63, Hemoglobin 15.7, Hematocrit 49.1, Mean Corpuscular Volume 87, Mean Corpuscular Hemoglobin 28.0, Mean Corpuscular Hemoglobin Concent 32.1, Red Cell Distribution Width 11.8, Platelet Count 128L, Mean Platelet Volume 7.6, Neutrophils (%) (Auto) 71.8, Lymphocytes (%) (Auto) 17.8L, Monocytes (%) (Auto) 7.0, Eosinophils (%) (Auto) 2.7, Basophils (%) (Auto ) 0.7 Current Medications Medications (Trade) Dose Ordered Sig/Roman Route PRN Reason Start Time Stop Time Status Last Admin Dose Admin Acetaminophen (Tylenol) 500 mg Q4H PRN ORAL Mild Pain (Pain Scale 1-3) 11/06/19 10:05 12/06/19 10:04 11/08/19 16:48 Dextrose (Dextrose 50%) 25 ml Q30M PRN IV Hypoglycemia 11/06/19 10:30 01/31/20 08:29 Dextrose (Dextrose 50%) 50 ml Q30M PRN IV Hypoglycemia 11/06/19 10:30 01/31/20 08:29 Enoxaparin Sodium (Lovenox) 40 mg DAILY SUBQ 11/11/19 09:00 02/09/20 08:59 11/11/19 09:47 Insulin Aspart (NovoLOG) BEFORE MEALS AND HS SUBQ 11/06/19 11:30 01/28/20 16:29 11/11/19 11:42 Metformin HCl (Glucophage) 500 mg BID ORAL 11/11/19 09:00 12/11/19 08:59 11/11/19 09:45 Sitagliptin Phosphate (Januvia) 100 mg ACBREAKFAST ORAL 11/11/19 07:00 12/11/19 06:59 11/11/19 09:49 Assessment/Plan Assessment/Plan IMPRESSION: 1. Hypoxemia. 2. COVID-19 pneumonia. 3. Diabetes mellitus. DISCUSSION: Continue steroids, remdesivir, fluids. Continue nonrebreather mask. Now on 2L/mi I will follow. Dajuan Bragg Omar Syed MD Nov 11, 2019 12:06
--- NOTE | 2019-11-11 12:18 | Infectious Diseases Prog Note ---
Assessment/Plan Assessment/Plan IMPRESSION: COVID-19 pneumonia, stable CXR Hypoxemia, improving Uncontrolled diabetes mellitus, Hyponatremia. RECOMMENDATION: Finished remdesivir Can be discharged whenever off of oxygen Subjective ROS Limited/Unobtainable: Yes Constitutional: Reports: no symptoms Respiratory: Reports: no symptoms Allergies: Coded Allergies: No Known Allergies (Unverified , 10/28/19) Objective Last 24 Hour Vital Signs Date Time Temp Pulse Resp B/P (MAP) Pulse Ox O2 Delivery O2 Flow Rate FiO2 11/11/19 09:00 Nasal Cannula 2.0 11/11/19 08:00 97.6 69 18 108/66 (80) 98 11/11/19 04:00 97.5 62 20 110/61 (77) 99 11/11/19 00:00 98.2 70 20 95/60 (72) 98 11/10/19 21:00 Nasal Cannula 2.0 11/10/19 20:00 98.6 71 20 110/66 (81) 98 11/10/19 16:00 97.8 68 18 110/65 (80) 98 Height (Feet): 5 Height (Inches): 7.00 Weight (Pounds): 119 HEENT: mucous membranes moist Respiratory/Chest: other Cardiovascular: normal rate Abdomen: soft, non tender Extremities: no edema Neurologic/Psychiatric: alert, responsive Laboratory Tests Test 11/11/19 06:30 White Blood Count 7.5 K/UL (4.8-10.8) Red Blood Count 5.63 M/UL (4.70-6.10) Hemoglobin 15.7 G/DL (14.2-18.0) Hematocrit 49.1 % (42.0-52.0) Mean Corpuscular Volume 87 FL (80-99) Mean Corpuscular Hemoglobin 28.0 PG (27.0-31.0) Mean Corpuscular Hemoglobin Concent 32.1 G/DL (32.0-36.0) Red Cell Distribution Width 11.8 % (11.6-14.8) Platelet Count 128 K/UL (150-450) L Mean Platelet Volume 7.6 FL (6.5-10.1) Neutrophils (%) (Auto) 71.8 % (45.0-75.0) Lymphocytes (%) (Auto) 17.8 % (20.0-45.0) L Monocytes (%) (Auto) 7.0 % (1.0-10.0) Eosinophils (%) (Auto) 2.7 % (0.0-3.0) Basophils (%) (Auto) 0.7 % (0.0-2.0) Current Medications Medications (Trade) Dose Ordered Sig/Roman Route PRN Reason Start Time Stop Time Status Last Admin Dose Admin Acetaminophen (Tylenol) 500 mg Q4H PRN ORAL Mild Pain (Pain Scale 1-3) 11/06/19 10:05 12/06/19 10:04 11/08/19 16:48 Dextrose (Dextrose 50%) 25 ml Q30M PRN IV Hypoglycemia 11/06/19 10:30 01/31/20 08:29 Dextrose (Dextrose 50%) 50 ml Q30M PRN IV Hypoglycemia 11/06/19 10:30 01/31/20 08:29 Enoxaparin Sodium (Lovenox) 40 mg DAILY SUBQ 11/11/19 09:00 02/09/20 08:59 11/11/19 09:47 Insulin Aspart (NovoLOG) BEFORE MEALS AND HS SUBQ 11/06/19 11:30 01/28/20 16:29 11/11/19 11:42 Metformin HCl (Glucophage) 500 mg BID ORAL 11/11/19 09:00 12/11/19 08:59 11/11/19 09:45 Sitagliptin Phosphate (Januvia) 100 mg ACBREAKFAST ORAL 11/11/19 07:00 12/11/19 06:59 11/11/19 09:49 Stas Garcia MD Nov 11, 2019 12:18
--- NOTE | 2019-11-11 13:04 | Hematology/Onc Progress Note ---
Assessment/Plan Assessment/Plan Assessment and Recs # Lower extremity pain with swelling --> have ordered duplex lower extremity-->neg --> for now continue on anticoagulation ppx # Covid 19 pna --> sp remdesivir --> steriods prn --> per pulm recs # Hyperglycemia --> as per endo eval # Generalized weakness. --> likely covid19 related # Hypoxia --> due ot above, on 2 lcn # Dvt ppx lovenox The timing of this note does not necessarily reflect the time of the patient was seen. Greatly appreciate consultation. Subjective HEENT: Denies: no symptoms, eye pain, blurred vision, tearing, double vision, ear pain, ear discharge, nose pain, nose congestion, throat pain, throat swelling, mouth pain, mouth swelling, other Cardiovascular: Denies: no symptoms, chest pain, edema, irregular heart rate, lightheadedness, palpitations, syncope, other Respiratory: Denies: no symptoms, cough, shortness of breath, SOB with excertion, SOB at rest, sputum, wheezing, other Gastrointestinal/Abdominal: Denies: no symptoms, abdomen distended, abdominal pain, black stools, tarry stools, blood in stool, constipated, diarrhea, difficulty swallowing, nausea, poor appetite, poor fluid intake, rectal bleeding , vomiting, other Genitourinary: Denies: no symptoms, burning, discharge, frequency, flank pain, hematuria, incontinence, pain, urgency, other Neurologic/Psychiatric: Denies: no symptoms, anxiety, depressed, emotional problems, headache, numbness, paresthesia, pre-existing deficit, seizure, tingling, tremors, weakness, other Endocrine: Denies: no symptoms, excessive sweating, flushing, intolerance to cold, intolerance to heat, increased hunger, increased thirst, increased urine, unexplained weight gain, unexplained weight loss, other Hematologic/Lymphatic: Denies: no symptoms, anemia, easy bleeding, easy bruising, adenopathy, other Allergies: Coded Allergies: No Known Allergies (Unverified , 10/28/19) Subjective 11/10 no major changes, labs noted, no bleeding, for dc Objective Objective Current Medications Medications (Trade) Dose Ordered Sig/Roman Route PRN Reason Start Time Stop Time Status Last Admin Dose Admin Acetaminophen (Tylenol) 500 mg Q4H PRN ORAL Mild Pain (Pain Scale 1-3) 11/06/19 10:05 12/06/19 10:04 11/08/19 16:48 Dextrose (Dextrose 50%) 25 ml Q30M PRN IV Hypoglycemia 11/06/19 10:30 01/31/20 08:29 Dextrose (Dextrose 50%) 50 ml Q30M PRN IV Hypoglycemia 11/06/19 10:30 01/31/20 08:29 Enoxaparin Sodium (Lovenox) 40 mg DAILY SUBQ 11/11/19 09:00 02/09/20 08:59 11/11/19 09:47 Insulin Aspart (NovoLOG) BEFORE MEALS AND HS SUBQ 11/06/19 11:30 01/28/20 16:29 11/11/19 11:42 Metformin HCl (Glucophage) 500 mg BID ORAL 11/11/19 09:00 12/11/19 08:59 11/11/19 09:45 Sitagliptin Phosphate (Januvia) 100 mg ACBREAKFAST ORAL 11/11/19 07:00 12/11/19 06:59 11/11/19 09:49 Last 24 Hour Vital Signs Date Time Temp Pulse Resp B/P (MAP) Pulse Ox O2 Delivery O2 Flow Rate FiO2 11/11/19 09:00 Nasal Cannula 2.0 11/11/19 08:00 97.6 69 18 108/66 (80) 98 11/11/19 04:00 97.5 62 20 110/61 (77) 99 11/11/19 00:00 98.2 70 20 95/60 (72) 98 11/10/19 21:00 Nasal Cannula 2.0 11/10/19 20:00 98.6 71 20 110/66 (81) 98 11/10/19 16:00 97.8 68 18 110/65 (80) 98 11/10/19 12:00 98.1 66 18 102/66 (78) 98 11/10/19 09:00 Nasal Cannula 2.0 11/10/19 08:00 98.4 65 18 111/67 (82) 98 11/10/19 03:28 97.7 58 18 95/59 (71) 97 11/09/19 23:46 96.3 58 18 116/63 (80) 94 11/09/19 21:00 Nasal Cannula 2.0 11/09/19 20:00 97.9 62 18 96/55 (69) 99 11/09/19 16:00 97.5 62 18 103/56 (72) 96 Intake and Output 11/10/19 11/11/19 19:00 07:00 Intake Total 840 ml 300 ml Output Total 1000 ml Balance -160 ml 300 ml Intake Oral 840 ml 300 ml Output Urine Total 1000 ml # Voids 5 Labs Test 11/08/19 16:00 11/09/19 05:55 11/09/19 16:01 11/11/19 06:30 White Blood Count 13.6 K/UL (4.8-10.8) 7.5 K/UL (4.8-10.8) Red Blood Count 5.16 M/UL (4.70-6.10) 5.63 M/UL (4.70-6.10) Hemoglobin 14.7 G/DL (14.2-18.0) 15.7 G/DL (14.2-18.0) Hematocrit 44.5 % (42.0-52.0) 49.1 % (42.0-52.0) Mean Corpuscular Volume 86 FL (80-99) 87 FL (80-99) Mean Corpuscular Hemoglobin 28.4 PG (27.0-31.0) 28.0 PG (27.0-31.0) Mean Corpuscular Hemoglobin Concent 32.9 G/DL (32.0-36.0) 32.1 G/DL (32.0-36.0) Red Cell Distribution Width 12.1 % (11.6-14.8) 11.8 % (11.6-14.8) Platelet Count 178 K/UL (150-450) 128 K/UL (150-450) Mean Platelet Volume 7.8 FL (6.5-10.1) 7.6 FL (6.5-10.1) Neutrophils (%) (Auto) 65.7 % (45.0-75.0) 71.8 % (45.0-75.0) Lymphocytes (%) (Auto) 22.7 % (20.0-45.0) 17.8 % (20.0-45.0) Monocytes (%) (Auto) 9.7 % (1.0-10.0) 7.0 % (1.0-10.0) Eosinophils (%) (Auto) 1.0 % (0.0-3.0) 2.7 % (0.0-3.0) Basophils (%) (Auto) 0.9 % (0.0-2.0) 0.7 % (0.0-2.0) Sodium Level 139 MMOL/L (136-145) Potassium Level 3.5 MMOL/L (3.5-5.1) Chloride Level 104 MMOL/L (98-107) Carbon Dioxide Level 29 MMOL/L (21-32) Anion Gap 6 mmol/L (5-15) Blood Urea Nitrogen 23 mg/dL (7-18) Creatinine 0.8 MG/DL (0.55-1.30) Estimat Glomerular Filtration Rate > 60 mL/min (>60) Glucose Level 77 MG/DL (74-106) Calcium Level 8.8 MG/DL (8.5-10.1) Total Bilirubin 0.2 MG/DL (0.2-1.0) Aspartate Amino Transf (AST/SGOT) 25 U/L (15-37) Alanine Aminotransferase (ALT/SGPT) 36 U/L (12-78) Alkaline Phosphatase 107 U/L (46-116) Total Protein 6.5 G/DL (6.4-8.2) Albumin 2.3 G/DL (3.4-5.0) Globulin 4.2 g/dL Albumin/Globulin Ratio 0.5 (1.0-2.7) POC Whole Blood Glucose 107 MG/DL (74-106) 170 MG/DL (74-106) Height (Feet): 5 Height (Inches): 7.00 Weight (Pounds): 119 Objective Physical Exam: Vitals: reviewed General: NAD HEENT: nc, at Neck: supple Chest: clear breath sounds bilaterally Cardiovascular: RRR, no s3, s4 Abdomen: soft, nontender, nd Extremities: no cce, normal range of motion Neuro: alert and oriented Roldan Tobin MD Nov 11, 2019 13:04
--- NOTE | 2019-11-11 14:03 | NUR ---
NURSE NOTES: Oxygen reduced to 1L NC, will recheck to see how well patient is tolerating the oxygen.
--- NOTE | 2019-11-11 15:01 | NUR ---
CASE MANAGEMENT: REVIEW SI: COVID-19 . PNA T 97.5 HR 62 RR 18 BP 95/60 SAT 98% 2L/NC PLAT CT 128 GLUCOSE 170 IS: LOVENOX SUBQ QD METFORMIN PO BID NOVOLOG SUBQ AC+HS MED/SURG STATUS DCP: PATIENT IS FROM HOME
--- NOTE | 2019-11-11 15:09 | NUR ---
CASE MANAGEMENT: DCP PATIENT CURRENTLY ON 2L/NC SUPPLEMENTAL O2 SATTING AT 98% CM REQUEST MD ORDER FOR HOME O2 IF THE PATIENT WILL CONTINUE TO REQUIRE SUPPLEMENTAL O2 NURSING MADE AWARE
[2019-11-11 16:00] VITALS: BP 109/58
--- NOTE | 2019-11-11 19:40 | NUR ---
HAND-OFF: Report given to OSMAR Pereira. Patient is in stable condition.
[2019-11-11 20:00] VITALS: BP 107/67
--- NOTE | 2019-11-11 21:44 | General Progress Note ---
Assessment/Plan Problem List: (1) Hyperglycemia ICD Codes: R73.9 - Hyperglycemia, unspecified; J06.9 - Acute upper respiratory infection, unspecified SNOMED: 34801245, 752344834, 392335709 (2) Acute respiratory disease due to COVID-19 virus ICD Codes: U07.1 - COVID-19; J06.9 - Acute upper respiratory infection, unspecified SNOMED: 324880931, 688182126, [id number] Status: progressing Assessment/Plan: covid positive pna weak oxygen revewiewed chart and labs afebrile niddm Subjective ROS Limited/Unobtainable: Yes Allergies: Coded Allergies: No Known Allergies (Unverified , 10/28/19) Objective Last 24 Hour Vital Signs Date Time Temp Pulse Resp B/P (MAP) Pulse Ox O2 Delivery O2 Flow Rate FiO2 11/11/19 16:00 98.1 67 20 109/58 (75) 92 11/11/19 12:00 98.2 65 18 106/63 (77) 99 11/11/19 09:00 Nasal Cannula 2.0 11/11/19 08:00 97.6 69 18 108/66 (80) 98 11/11/19 04:00 97.5 62 20 110/61 (77) 99 11/11/19 00:00 98.2 70 20 95/60 (72) 98 Intake and Output 11/10/19 11/11/19 19:00 07:00 Intake Total 840 ml 300 ml Output Total 1000 ml Balance -160 ml 300 ml Intake Oral 840 ml 300 ml Output Urine Total 1000 ml # Voids 5 Laboratory Tests 11/11/19 06:30: White Blood Count 7.5, Red Blood Count 5.63, Hemoglobin 15.7, Hematocrit 49.1, Mean Corpuscular Volume 87, Mean Corpuscular Hemoglobin 28.0, Mean Corpuscular Hemoglobin Concent 32.1, Red Cell Distribution Width 11.8, Platelet Count 128L, Mean Platelet Volume 7.6, Neutrophils (%) (Auto) 71.8, Lymphocytes (%) (Auto) 17.8L, Monocytes (%) (Auto) 7.0, Eosinophils (%) (Auto) 2.7, Basophils (%) (Auto ) 0.7 Height (Feet): 5 Height (Inches): 7.00 Weight (Pounds): 119 Nesha Damon MD Nov 11, 2019 21:44
[2019-11-12] VITALS: BP 100/60
[2019-11-12 04:00] VITALS: BP 104/61
[2019-11-12 06:05] LABS: BASOPHILS % (AUTO) 0.7 % (0.0-2.0); EOSINOPHILS % (AUTO) 3.5 % (0.0-3.0); HEMATOCRIT 47.4 % (42.0-52.0); HEMOGLOBIN 15.2 G/DL (14.2-18.0); MEAN CORPUSCULAR VOLUME 87 FL (80-99); MONOCYTES % (AUTO) 8.1 % (1.0-10.0); NEUTROPHILS % (AUTO) 70.7 % (45.0-75.0); PLATELET COUNT 137 K/UL (150-450); RED BLOOD COUNT 5.44 M/UL (4.70-6.10); RED CELL DISTRIBUTION WIDTH 11.6 % (11.6-14.8); WHITE BLOOD COUNT 8.3 K/UL (4.8-10.8)
--- NOTE | 2019-11-12 06:07 | General Progress Note ---
Assessment/Plan Problem List: (1) Acute respiratory disease due to COVID-19 virus ICD Codes: U07.1 - COVID-19; J06.9 - Acute upper respiratory infection, unspecified SNOMED: 345661904, 585085944, 305285533 (2) Hyperglycemia ICD Codes: R73.9 - Hyperglycemia, unspecified; J06.9 - Acute upper respiratory infection, unspecified SNOMED: 99157663, 596629364, 179627504 Status: progressing Assessment/Plan: continue Metformin 500 mg bid continue Januvia 100 mg daily continue Novolog sliding scale ac / hs no need for insulin after discharge Subjective Allergies: Coded Allergies: No Known Allergies (Unverified , 10/28/19) All Systems: reviewed and negative except above Subjective events noted glucose values improved Item Value Date Time Bedside Blood Glucose 120 mg/dl 11/11/19 2139 Bedside Blood Glucose 199 mg/dl H 11/11/19 1142 Bedside Blood Glucose 230 mg/dl H 11/11/19 0630 Objective Last 24 Hour Vital Signs Date Time Temp Pulse Resp B/P (MAP) Pulse Ox O2 Delivery O2 Flow Rate FiO2 11/12/19 00:00 98.2 67 20 100/60 (73) 94 11/11/19 21:00 Nasal Cannula 2.0 11/11/19 20:00 97.0 72 16 107/67 (80) 98 11/11/19 16:00 98.1 67 20 109/58 (75) 92 11/11/19 12:00 98.2 65 18 106/63 (77) 99 11/11/19 09:00 Nasal Cannula 2.0 11/11/19 08:00 97.6 69 18 108/66 (80) 98 Intake and Output 11/11/19 11/12/19 19:00 07:00 Intake Total 1080 ml Output Total 1600 ml Balance -520 ml Intake Oral 1080 ml Output Urine Total 1600 ml Laboratory Tests 11/11/19 06:30: White Blood Count 7.5, Red Blood Count 5.63, Hemoglobin 15.7, Hematocrit 49.1, Mean Corpuscular Volume 87, Mean Corpuscular Hemoglobin 28.0, Mean Corpuscular Hemoglobin Concent 32.1, Red Cell Distribution Width 11.8, Platelet Count 128L, Mean Platelet Volume 7.6, Neutrophils (%) (Auto) 71.8, Lymphocytes (%) (Auto) 17.8L, Monocytes (%) (Auto) 7.0, Eosinophils (%) (Auto) 2.7, Basophils (%) (Auto ) 0.7 11/12/19 05:25: White Blood Count [Pending], Red Blood Count [Pending], Hemoglobin [Pending], Hematocrit [Pending], Mean Corpuscular Volume [Pending], Mean Corpuscular Hemoglobin [Pending], Mean Corpuscular Hemoglobin Concent [Pending], Red Cell Distribution Width [Pending], Platelet Count [Pending], Mean Platelet Volume [ Pending], Neutrophils (%) (Auto) [Pending], Lymphocytes (%) (Auto) [Pending], Monocytes (%) (Auto) [Pending], Eosinophils (%) (Auto) [Pending], Basophils (%) (Auto) [Pending] Height (Feet): 5 Height (Inches): 7.00 Weight (Pounds): 119 General Appearance: no apparent distress Neck: normal alignment Cardiovascular: normal rate Respiratory/Chest: lungs clear Abdomen: normal bowel sounds Objective Current Medications Medications (Trade) Dose Ordered Sig/Roman Route PRN Reason Start Time Stop Time Status Last Admin Dose Admin Acetaminophen (Tylenol) 500 mg Q4H PRN ORAL Mild Pain (Pain Scale 1-3) 11/06/19 10:05 12/06/19 10:04 11/08/19 16:48 Dextrose (Dextrose 50%) 25 ml Q30M PRN IV Hypoglycemia 11/06/19 10:30 01/31/20 08:29 Dextrose (Dextrose 50%) 50 ml Q30M PRN IV Hypoglycemia 11/06/19 10:30 01/31/20 08:29 Enoxaparin Sodium (Lovenox) 40 mg DAILY SUBQ 11/11/19 09:00 02/09/20 08:59 11/11/19 09:47 Insulin Aspart (NovoLOG) BEFORE MEALS AND HS SUBQ 11/06/19 11:30 01/28/20 16:29 11/11/19 17:20 Metformin HCl (Glucophage) 500 mg BID ORAL 11/11/19 09:00 12/11/19 08:59 11/11/19 17:18 Sitagliptin Phosphate (Januvia) 100 mg ACBREAKFAST ORAL 11/11/19 07:00 12/11/19 06:59 11/11/19 09:49 Aram Ochoa MD Nov 12, 2019 06:07
[2019-11-12] MEDS: NovoLOG Insulin Flexpen SUBQ SCH ×4 (06:12→20:30)
[2019-11-12 08:00] VITALS: BP 97/59
--- NOTE | 2019-11-12 08:00 | NUR ---
NURSE NOTES: Patient awake and alert ,02 on at 1L N/C.respirations unlabored. Patient ate breakfast, patient has no concerns at this time. Call light within reach.
--- NOTE | 2019-11-12 09:42 | General Progress Note ---
Assessment/Plan Assessment/Plan: (1) Acute respiratory disease due to COVID-19 virus (2) B/L LE pain d/o DVT Pt will be continued on Tylenol. D/w Dr. Quinones and he concurred. Subjective Date patient seen: Nov 12, 2019 Time patient seen: 09:30 - am Allergies: Coded Allergies: No Known Allergies (Unverified , 10/28/19) Subjective Constitutional: Reports: weakness Eye: Reports: no symptoms ENT: Reports: no symptoms Respiratory: Reports: no symptoms Cardiovascular: Reports: no symptoms Gastrointestinal: Reports: no symptoms Genitourinary: Reports: no symptoms Musculoskeletal: Reports: no symptoms Skin: Reports: no symptoms Psychiatric: Reports: no symptoms Neurological: Reports: no symptoms Endocrine: Reports: no symptoms Hematologic/Lymphatic: Reports: no symptoms SUBJECTIVE: Patient is in bed no signs of pain or distress. Objective Last 24 Hour Vital Signs Date Time Temp Pulse Resp B/P (MAP) Pulse Ox O2 Delivery O2 Flow Rate FiO2 11/12/19 04:00 98.1 65 20 104/61 (75) 95 11/12/19 00:00 98.2 67 20 100/60 (73) 94 11/11/19 21:00 Nasal Cannula 2.0 11/11/19 20:00 97.0 72 16 107/67 (80) 98 11/11/19 16:00 98.1 67 20 109/58 (75) 92 11/11/19 12:00 98.2 65 18 106/63 (77) 99 Intake and Output 11/11/19 11/12/19 19:00 07:00 Intake Total 1080 ml 480 ml Output Total 1600 ml 600 ml Balance -520 ml -120 ml Intake Oral 1080 ml 480 ml Output Urine Total 1600 ml 600 ml # Voids 2 Laboratory Tests 11/11/19 11:38: POC Whole Blood Glucose 199H 11/11/19 17:14: POC Whole Blood Glucose [Pending] 11/12/19 05:25: White Blood Count 8.3, Red Blood Count 5.44, Hemoglobin 15.2, Hematocrit 47.4, Mean Corpuscular Volume 87, Mean Corpuscular Hemoglobin 27.9, Mean Corpuscular Hemoglobin Concent 32.0, Red Cell Distribution Width 11.6, Platelet Count 137L, Mean Platelet Volume 9.0, Neutrophils (%) (Auto) 70.7, Lymphocytes (%) (Auto) 17.0L, Monocytes (%) (Auto) 8.1, Eosinophils (%) (Auto) 3.5H, Basophils (%) ( Auto) 0.7 Height (Feet): 5 Height (Inches): 7.00 Weight (Pounds): 118 General Appearance: no apparent distress, alert EENT: PERRL/EOMI, normal ENT inspection Neck: non-tender, normal alignment Cardiovascular: normal rate, regular rhythm Respiratory/Chest: decreased breath sounds Abdomen: non tender, soft Edema: no edema noted Generalized Neurologic: alert, responsive Skin: normal pigmentation Ant Holloway Nov 12, 2019 09:42
[2019-11-12] MEDS: metFORMIN 500mg tab ORAL SCH ×2 (09:59→18:39)
--- NOTE | 2019-11-12 10:09 | Infectious Diseases Prog Note ---
Assessment/Plan Assessment/Plan IMPRESSION: COVID-19 pneumonia, stable CXR Hypoxemia, improving Uncontrolled diabetes mellitus, Hyponatremia. RECOMMENDATION: Finished remdesivir Can be discharged whenever off of oxygen Subjective ROS Limited/Unobtainable: Yes Respiratory: Reports: productive cough Gastrointestinal/Abdominal: Reports: no symptoms Genitourinary: Reports: no symptoms Allergies: Coded Allergies: No Known Allergies (Unverified , 10/28/19) Objective Last 24 Hour Vital Signs Date Time Temp Pulse Resp B/P (MAP) Pulse Ox O2 Delivery O2 Flow Rate FiO2 11/12/19 04:00 98.1 65 20 104/61 (75) 95 11/12/19 00:00 98.2 67 20 100/60 (73) 94 11/11/19 21:00 Nasal Cannula 2.0 11/11/19 20:00 97.0 72 16 107/67 (80) 98 11/11/19 16:00 98.1 67 20 109/58 (75) 92 11/11/19 12:00 98.2 65 18 106/63 (77) 99 Height (Feet): 5 Height (Inches): 7.00 Weight (Pounds): 118 General Appearance: no acute distress HEENT: mucous membranes moist Respiratory/Chest: other - oxygen by nasal cannula,1L Abdomen: soft, non tender Extremities: no edema Neurologic/Psychiatric: alert, responsive Laboratory Tests Test 11/11/19 11:38 11/11/19 17:14 11/12/19 05:25 POC Whole Blood Glucose 199 MG/DL (74-106) H Pending White Blood Count 8.3 K/UL (4.8-10.8) Red Blood Count 5.44 M/UL (4.70-6.10) Hemoglobin 15.2 G/DL (14.2-18.0) Hematocrit 47.4 % (42.0-52.0) Mean Corpuscular Volume 87 FL (80-99) Mean Corpuscular Hemoglobin 27.9 PG (27.0-31.0) Mean Corpuscular Hemoglobin Concent 32.0 G/DL (32.0-36.0) Red Cell Distribution Width 11.6 % (11.6-14.8) Platelet Count 137 K/UL (150-450) L Mean Platelet Volume 9.0 FL (6.5-10.1) Neutrophils (%) (Auto) 70.7 % (45.0-75.0) Lymphocytes (%) (Auto) 17.0 % (20.0-45.0) L Monocytes (%) (Auto) 8.1 % (1.0-10.0) Eosinophils (%) (Auto) 3.5 % (0.0-3.0) H Basophils (%) (Auto) 0.7 % (0.0-2.0) Current Medications Medications (Trade) Dose Ordered Sig/Roman Route PRN Reason Start Time Stop Time Status Last Admin Dose Admin Acetaminophen (Tylenol) 500 mg Q4H PRN ORAL Mild Pain (Pain Scale 1-3) 11/06/19 10:05 12/06/19 10:04 11/08/19 16:48 Dextrose (Dextrose 50%) 25 ml Q30M PRN IV Hypoglycemia 11/06/19 10:30 01/31/20 08:29 Dextrose (Dextrose 50%) 50 ml Q30M PRN IV Hypoglycemia 11/06/19 10:30 01/31/20 08:29 Enoxaparin Sodium (Lovenox) 40 mg DAILY SUBQ 11/11/19 09:00 02/09/20 08:59 11/11/19 09:47 Insulin Aspart (NovoLOG) BEFORE MEALS AND HS SUBQ 11/06/19 11:30 01/28/20 16:29 11/11/19 17:20 Metformin HCl (Glucophage) 500 mg BID ORAL 11/11/19 09:00 12/11/19 08:59 11/12/19 09:59 Sitagliptin Phosphate (Januvia) 100 mg ACBREAKFAST ORAL 11/11/19 07:00 12/11/19 06:59 11/12/19 06:09 Stas Garcia MD Nov 12, 2019 10:08
--- NOTE | 2019-11-12 10:35 | Pulmonology Progress Note ---
Subjective ROS Limited/Unobtainable: Yes Interval Events: None new Constitutional: Reports: no symptoms HEENT: Repors: no symptoms Respiratory: Reports: dry cough, shortness of breath Cardiovascular: Reports: no symptoms Gastrointestinal/Abdominal: Reports: no symptoms Musculoskeletal: Reports: pain, other - in knees Allergies: Coded Allergies: No Known Allergies (Unverified , 10/28/19) All Systems: reviewed and negative except above Objective Last 24 Hour Vital Signs Date Time Temp Pulse Resp B/P (MAP) Pulse Ox O2 Delivery O2 Flow Rate FiO2 11/12/19 04:00 98.1 65 20 104/61 (75) 95 11/12/19 00:00 98.2 67 20 100/60 (73) 94 11/11/19 21:00 Nasal Cannula 2.0 11/11/19 20:00 97.0 72 16 107/67 (80) 98 11/11/19 16:00 98.1 67 20 109/58 (75) 92 11/11/19 12:00 98.2 65 18 106/63 (77) 99 Intake and Output 11/11/19 11/12/19 19:00 07:00 Intake Total 1080 ml 480 ml Output Total 1600 ml 600 ml Balance -520 ml -120 ml Intake Oral 1080 ml 480 ml Output Urine Total 1600 ml 600 ml # Voids 2 General Appearance: no acute distress HEENT: normocephalic Respiratory: decreased breath sounds Cardiovascular: normal peripheral pulses Abdomen: normal bowel sounds Laboratory Tests 11/11/19 11:38: POC Whole Blood Glucose 199H 11/11/19 17:14: POC Whole Blood Glucose [Pending] 11/12/19 05:25: White Blood Count 8.3, Red Blood Count 5.44, Hemoglobin 15.2, Hematocrit 47.4, Mean Corpuscular Volume 87, Mean Corpuscular Hemoglobin 27.9, Mean Corpuscular Hemoglobin Concent 32.0, Red Cell Distribution Width 11.6, Platelet Count 137L, Mean Platelet Volume 9.0, Neutrophils (%) (Auto) 70.7, Lymphocytes (%) (Auto) 17.0L, Monocytes (%) (Auto) 8.1, Eosinophils (%) (Auto) 3.5H, Basophils (%) ( Auto) 0.7 Current Medications Medications (Trade) Dose Ordered Sig/Roman Route PRN Reason Start Time Stop Time Status Last Admin Dose Admin Acetaminophen (Tylenol) 500 mg Q4H PRN ORAL Mild Pain (Pain Scale 1-3) 11/06/19 10:05 12/06/19 10:04 11/08/19 16:48 Dextrose (Dextrose 50%) 25 ml Q30M PRN IV Hypoglycemia 11/06/19 10:30 01/31/20 08:29 Dextrose (Dextrose 50%) 50 ml Q30M PRN IV Hypoglycemia 11/06/19 10:30 01/31/20 08:29 Enoxaparin Sodium (Lovenox) 40 mg DAILY SUBQ 11/11/19 09:00 02/09/20 08:59 11/11/19 09:47 Insulin Aspart (NovoLOG) BEFORE MEALS AND HS SUBQ 11/06/19 11:30 01/28/20 16:29 11/11/19 17:20 Metformin HCl (Glucophage) 500 mg BID ORAL 11/11/19 09:00 12/11/19 08:59 11/12/19 09:59 Sitagliptin Phosphate (Januvia) 100 mg ACBREAKFAST ORAL 11/11/19 07:00 12/11/19 06:59 11/12/19 06:09 Assessment/Plan Assessment/Plan IMPRESSION: 1. Hypoxemia. Now on 2L/min 2. COVID-19 pneumonia. 3. Diabetes mellitus. DISCUSSION: Continue medications Now on 2L/mi I will follow. Dajuan Bragg Omar Syed MD Nov 12, 2019 10:35
[2019-11-12] MEDS: Enoxaparin 40mg Inj SUBQ SCH (11:48)
--- NOTE | 2019-11-12 11:56 | NUR ---
NURSE NOTES: Patient 02 saturations on room air 95%,respirations unlabored.Patient was off of 02 over 10 minutes
[2019-11-12 12:00] VITALS: BP 102/62
[2019-11-12 16:00] VITALS: BP 97/62
--- NOTE | 2019-11-12 16:56 | NUR ---
CASE MANAGEMENT: REVIEW SI: COVID-19 . PNA T 97.0 HR 72 RR 16 BP 97/59 SAT 94% 2L/NC GLUCOSE 181 IS: LOVENOX SUBQ QD METFORMIN PO BID NOVOLOG SUBQ AC+HS MED/SURG STATUS DCP: PATIENT IS FROM HOME
--- NOTE | 2019-11-12 18:52 | Cardiac Electrophysiology PN ---
Assessment/Plan Assessment/Plan 1. Mild bradycardia with HR 50s. 2. PACs with no atrial fib 3. COVID pneumonia. S/P Remdesivir treatment. EF 60%. No Clinical CHF 4. Uncontrolled diabetes. On insulin per Dr. Ochoa. Subjective Subjective In Covid isolation. Comfortable in NAD Objective Last 24 Hour Vital Signs Date Time Temp Pulse Resp B/P (MAP) Pulse Ox O2 Delivery O2 Flow Rate FiO2 11/12/19 16:00 97.9 78 20 97/62 (74) 95 11/12/19 12:00 98.4 80 19 102/62 (75) 94 11/12/19 09:00 Nasal Cannula 1.0 11/12/19 08:00 98.2 78 18 97/59 (72) 94 11/12/19 04:00 98.1 65 20 104/61 (75) 95 11/12/19 00:00 98.2 67 20 100/60 (73) 94 11/11/19 21:00 Nasal Cannula 2.0 11/11/19 20:00 97.0 72 16 107/67 (80) 98 Intake and Output 11/11/19 11/12/19 19:00 07:00 Intake Total 1080 ml 480 ml Output Total 1600 ml 600 ml Balance -520 ml -120 ml Intake Oral 1080 ml 480 ml Output Urine Total 1600 ml 600 ml # Voids 2 Laboratory Tests Test 11/12/19 05:25 11/12/19 11:54 11/12/19 17:07 White Blood Count 8.3 K/UL (4.8-10.8) Red Blood Count 5.44 M/UL (4.70-6.10) Hemoglobin 15.2 G/DL (14.2-18.0) Hematocrit 47.4 % (42.0-52.0) Mean Corpuscular Volume 87 FL (80-99) Mean Corpuscular Hemoglobin 27.9 PG (27.0-31.0) Mean Corpuscular Hemoglobin Concent 32.0 G/DL (32.0-36.0) Red Cell Distribution Width 11.6 % (11.6-14.8) Platelet Count 137 K/UL (150-450) L Mean Platelet Volume 9.0 FL (6.5-10.1) Neutrophils (%) (Auto) 70.7 % (45.0-75.0) Lymphocytes (%) (Auto) 17.0 % (20.0-45.0) L Monocytes (%) (Auto) 8.1 % (1.0-10.0) Eosinophils (%) (Auto) 3.5 % (0.0-3.0) H Basophils (%) (Auto) 0.7 % (0.0-2.0) POC Whole Blood Glucose 181 MG/DL (74-106) H Pending Objective HEAD AND NECK: No JVD. LUNGS: Clear. CARDIOVASCULAR: Regular S1 and S2 with no gallop or murmur. ABDOMEN: Soft. EXTREMITIES: No pitting edema. Mohsen Epps MD Nov 12, 2019 18:52
--- NOTE | 2019-11-12 19:00 | NUR ---
NURSE NOTES: Patient resting respirations unlabored.call light within reach.
--- NOTE | 2019-11-12 19:30 | NUR ---
HAND-OFF: Report given to Petar PRASAD.
--- NOTE | 2019-11-12 19:45 | NUR ---
NURSE NOTES: Patient in bed, on nasal cannula 1LPM, no complaint of SOB or pain. With IV access on the right arm. Call light in reach. Bed in lowest position, lock engaged and alarm on. Will continue plan of care.
[2019-11-12 20:00] VITALS: BP 115/61
--- NOTE | 2019-11-12 21:51 | General Progress Note ---
Assessment/Plan Problem List: (1) Hyperglycemia ICD Codes: R73.9 - Hyperglycemia, unspecified; J06.9 - Acute upper respiratory infection, unspecified SNOMED: 92744632, 897383877, [id number] (2) Acute respiratory disease due to COVID-19 virus ICD Codes: U07.1 - COVID-19; J06.9 - Acute upper respiratory infection, unspecified SNOMED: 179165474, [id number], [id number] Status: progressing Assessment/Plan: covid positive pna hypoxic prn oxygen prn not ready for dc and not safe to dc niddm Subjective ROS Limited/Unobtainable: Yes Allergies: Coded Allergies: No Known Allergies (Unverified , 10/28/19) Objective Last 24 Hour Vital Signs Date Time Temp Pulse Resp B/P (MAP) Pulse Ox O2 Delivery O2 Flow Rate FiO2 11/12/19 20:00 97.7 73 20 115/61 (79) 94 11/12/19 16:00 97.9 78 20 97/62 (74) 95 11/12/19 12:00 98.4 80 19 102/62 (75) 94 11/12/19 09:00 Nasal Cannula 1.0 11/12/19 08:00 98.2 78 18 97/59 (72) 94 11/12/19 04:00 98.1 65 20 104/61 (75) 95 11/12/19 00:00 98.2 67 20 100/60 (73) 94 Intake and Output 11/11/19 11/12/19 19:00 07:00 Intake Total 1080 ml 480 ml Output Total 1600 ml 600 ml Balance -520 ml -120 ml Intake Oral 1080 ml 480 ml Output Urine Total 1600 ml 600 ml # Voids 2 Laboratory Tests 11/12/19 05:25: White Blood Count 8.3, Red Blood Count 5.44, Hemoglobin 15.2, Hematocrit 47.4, Mean Corpuscular Volume 87, Mean Corpuscular Hemoglobin 27.9, Mean Corpuscular Hemoglobin Concent 32.0, Red Cell Distribution Width 11.6, Platelet Count 137L, Mean Platelet Volume 9.0, Neutrophils (%) (Auto) 70.7, Lymphocytes (%) (Auto) 17.0L, Monocytes (%) (Auto) 8.1, Eosinophils (%) (Auto) 3.5H, Basophils (%) ( Auto) 0.7 11/12/19 11:54: POC Whole Blood Glucose 181H 11/12/19 17:07: POC Whole Blood Glucose [Pending] 11/12/19 20:28: POC Whole Blood Glucose [Pending] Height (Feet): 5 Height (Inches): 7.00 Weight (Pounds): 118 Nesha Damon MD Nov 12, 2019 21:51
[2019-11-13] VITALS: BP 112/70
[2019-11-13 04:00] VITALS: BP 102/63
[2019-11-13] MEDS: NovoLOG Insulin Flexpen SUBQ SCH ×2 (06:07→12:40)
[2019-11-13 06:40] LABS: BASOPHILS % (AUTO) 0.4 % (0.0-2.0); EOSINOPHILS % (AUTO) 3.6 % (0.0-3.0); HEMATOCRIT 45.2 % (42.0-52.0); HEMOGLOBIN 14.7 G/DL (14.2-18.0); LYMPHOCYTES % (AUTO) 15.8 % (20.0-45.0); MEAN CORPUSCULAR VOLUME 87 FL (80-99); NEUTROPHILS % (AUTO) 72.2 % (45.0-75.0); PLATELET COUNT 129 K/UL (150-450); RED BLOOD COUNT 5.22 M/UL (4.70-6.10); RED CELL DISTRIBUTION WIDTH 11.5 % (11.6-14.8); WHITE BLOOD COUNT 8.1 K/UL (4.8-10.8)
--- NOTE | 2019-11-13 06:52 | General Progress Note ---
Assessment/Plan Problem List: (1) Acute respiratory disease due to COVID-19 virus ICD Codes: U07.1 - COVID-19; J06.9 - Acute upper respiratory infection, unspecified SNOMED: 088854759, [id number], [id number] (2) Hyperglycemia ICD Codes: R73.9 - Hyperglycemia, unspecified; J06.9 - Acute upper respiratory infection, unspecified SNOMED: 29526536, 327821704, [id number] Status: progressing Assessment/Plan: continue Metformin 500 mg bid continue Januvia 100 mg daily continue Novolog sliding scale ac / hs no need for insulin after discharge Subjective Allergies: Coded Allergies: No Known Allergies (Unverified , 10/28/19) Subjective events noted glucose values are stable Item Value Date Time Bedside Blood Glucose 112 mg/dl 11/13/19 0630 Bedside Blood Glucose 177 mg/dl H 11/12/19 2048 Bedside Blood Glucose 117 mg/dl 11/12/19 1705 Bedside Blood Glucose 181 mg/dl H 11/12/19 1259 Bedside Blood Glucose 121 mg/dl H 11/12/19 0612 Objective Last 24 Hour Vital Signs Date Time Temp Pulse Resp B/P (MAP) Pulse Ox O2 Delivery O2 Flow Rate FiO2 11/13/19 04:00 98.2 72 20 102/63 (76) 98 11/13/19 00:00 97.5 70 18 112/70 (84) 98 11/12/19 21:00 Nasal Cannula 1.0 11/12/19 20:00 97.7 73 20 115/61 (79) 94 11/12/19 16:00 97.9 78 20 97/62 (74) 95 11/12/19 12:00 98.4 80 19 102/62 (75) 94 11/12/19 09:00 Nasal Cannula 1.0 11/12/19 08:00 98.2 78 18 97/59 (72) 94 Intake and Output 11/12/19 11/13/19 19:00 07:00 Intake Total 1080 ml 500 ml Output Total 1200 ml 900 ml Balance -120 ml -400 ml Intake Oral 1080 ml 500 ml Output Urine Total 1200 ml 900 ml # Bowel Movements 1 Laboratory Tests 11/12/19 11:54: POC Whole Blood Glucose 181H 11/12/19 17:07: POC Whole Blood Glucose [Pending] 11/12/19 20:28: POC Whole Blood Glucose [Pending] 11/13/19 04:30: White Blood Count [Pending], Red Blood Count [Pending], Hemoglobin [Pending], Hematocrit [Pending], Mean Corpuscular Volume [Pending], Mean Corpuscular Hemoglobin [Pending], Mean Corpuscular Hemoglobin Concent [Pending], Red Cell Distribution Width [Pending], Platelet Count [Pending], Mean Platelet Volume [ Pending], Neutrophils (%) (Auto) [Pending], Lymphocytes (%) (Auto) [Pending], Monocytes (%) (Auto) [Pending], Eosinophils (%) (Auto) [Pending], Basophils (%) (Auto) [Pending] 11/13/19 06:03: POC Whole Blood Glucose [Pending] Height (Feet): 5 Height (Inches): 7.00 Weight (Pounds): 118 General Appearance: no apparent distress Neck: normal alignment Cardiovascular: normal rate Respiratory/Chest: lungs clear Abdomen: normal bowel sounds Objective Current Medications Medications (Trade) Dose Ordered Sig/Roman Route PRN Reason Start Time Stop Time Status Last Admin Dose Admin Acetaminophen (Tylenol) 500 mg Q4H PRN ORAL Mild Pain (Pain Scale 1-3) 11/06/19 10:05 12/06/19 10:04 11/08/19 16:48 Dextrose (Dextrose 50%) 25 ml Q30M PRN IV Hypoglycemia 11/06/19 10:30 01/31/20 08:29 Dextrose (Dextrose 50%) 50 ml Q30M PRN IV Hypoglycemia 11/06/19 10:30 01/31/20 08:29 Enoxaparin Sodium (Lovenox) 40 mg DAILY SUBQ 11/12/19 11:30 02/09/20 08:59 11/12/19 11:48 Insulin Aspart (NovoLOG) BEFORE MEALS AND HS SUBQ 11/06/19 11:30 01/28/20 16:29 11/12/19 20:30 Metformin HCl (Glucophage) 500 mg BID ORAL 11/11/19 09:00 12/11/19 08:59 11/12/19 18:39 Sitagliptin Phosphate (Januvia) 100 mg ACBREAKFAST ORAL 11/11/19 07:00 12/11/19 06:59 11/13/19 06:07 Aram Ochoa MD Nov 13, 2019 06:52
--- NOTE | 2019-11-13 06:57 | NUR ---
NURSE NOTES: Attempted to wean patient off Oxygen. Patient saturating 91% no O2 and 97% on 1 LPM. Charge nurse made aware.
--- NOTE | 2019-11-13 07:38 | NUR ---
HAND-OFF: Report given to Deshaun Jefferson RN.
--- NOTE | 2019-11-13 07:47 | NUR ---
NURSE NOTES: Received report from Petar Calabrese RN. Patient sitting up in bed, awake and alert, watching television, no c/o pain, on 1 liter nasal cannula saturating at 99 percent, bed in lowest position, call light within reach, side rails up x 2, wheels locked, in no apparent distress.
[2019-11-13 08:00] VITALS: BP 99/60
[2019-11-13] MEDS ORDERED: Enoxaparin 40mg Inj SUBQ SCH (09:00)
[2019-11-13] MEDS: metFORMIN 500mg tab ORAL SCH (09:38)
[2019-11-13] MEDS: Enoxaparin 40mg Inj SUBQ SCH (09:38)
--- NOTE | 2019-11-13 10:14 | Pulmonology Progress Note ---
Subjective ROS Limited/Unobtainable: Yes Interval Events: None new Constitutional: Reports: no symptoms HEENT: Repors: no symptoms Respiratory: Reports: dry cough, shortness of breath Cardiovascular: Reports: no symptoms Gastrointestinal/Abdominal: Reports: no symptoms Musculoskeletal: Reports: pain, other - in knees Allergies: Coded Allergies: No Known Allergies (Unverified , 10/28/19) All Systems: reviewed and negative except above Objective Last 24 Hour Vital Signs Date Time Temp Pulse Resp B/P (MAP) Pulse Ox O2 Delivery O2 Flow Rate FiO2 11/13/19 08:00 98.1 73 18 99/60 (73) 97 11/13/19 04:00 98.2 72 20 102/63 (76) 98 11/13/19 00:00 97.5 70 18 112/70 (84) 98 11/12/19 21:00 Nasal Cannula 1.0 11/12/19 20:00 97.7 73 20 115/61 (79) 94 11/12/19 16:00 97.9 78 20 97/62 (74) 95 11/12/19 12:00 98.4 80 19 102/62 (75) 94 Intake and Output 11/12/19 11/13/19 19:00 07:00 Intake Total 1080 ml 500 ml Output Total 1200 ml 900 ml Balance -120 ml -400 ml Intake Oral 1080 ml 500 ml Output Urine Total 1200 ml 900 ml # Bowel Movements 1 General Appearance: no acute distress HEENT: normocephalic Respiratory: decreased breath sounds Cardiovascular: normal peripheral pulses Abdomen: normal bowel sounds Laboratory Tests 11/12/19 11:54: POC Whole Blood Glucose 181H 11/12/19 17:07: POC Whole Blood Glucose [Pending] 11/12/19 20:28: POC Whole Blood Glucose [Pending] 11/13/19 04:30: White Blood Count 8.1, Red Blood Count 5.22, Hemoglobin 14.7, Hematocrit 45.2, Mean Corpuscular Volume 87, Mean Corpuscular Hemoglobin 28.2, Mean Corpuscular Hemoglobin Concent 32.6, Red Cell Distribution Width 11.5L, Platelet Count 129L , Mean Platelet Volume 7.4, Neutrophils (%) (Auto) 72.2, Lymphocytes (%) (Auto) 15.8L, Monocytes (%) (Auto) 8.0, Eosinophils (%) (Auto) 3.6H, Basophils (%) ( Auto) 0.4 11/13/19 06:03: POC Whole Blood Glucose [Pending] Current Medications Medications (Trade) Dose Ordered Sig/Roman Route PRN Reason Start Time Stop Time Status Last Admin Dose Admin Acetaminophen (Tylenol) 500 mg Q4H PRN ORAL Mild Pain (Pain Scale 1-3) 11/06/19 10:05 12/06/19 10:04 11/08/19 16:48 Dextrose (Dextrose 50%) 25 ml Q30M PRN IV Hypoglycemia 11/06/19 10:30 01/31/20 08:29 Dextrose (Dextrose 50%) 50 ml Q30M PRN IV Hypoglycemia 11/06/19 10:30 01/31/20 08:29 Enoxaparin Sodium (Lovenox) 40 mg DAILY SUBQ 11/12/19 11:30 02/09/20 08:59 11/13/19 09:38 Insulin Aspart (NovoLOG) BEFORE MEALS AND HS SUBQ 11/06/19 11:30 01/28/20 16:29 11/12/19 20:30 Metformin HCl (Glucophage) 500 mg BID ORAL 11/11/19 09:00 12/11/19 08:59 11/13/19 09:38 Sitagliptin Phosphate (Januvia) 100 mg ACBREAKFAST ORAL 11/11/19 07:00 12/11/19 06:59 11/13/19 06:07 Assessment/Plan Assessment/Plan IMPRESSION: 1. Hypoxemia. Now on 1L/min 2. COVID-19 pneumonia. 3. Diabetes mellitus. DISCUSSION: Continue medications Now on 1L/mi OK to dc home without O2 I will follow. Dajuan Bragg Omar Syed MD Nov 13, 2019 10:14
--- NOTE | 2019-11-13 10:37 | Cardiac Electrophysiology PN ---
Assessment/Plan Assessment/Plan 1. Mild bradycardia with HR 50s. 2. PACs with no atrial fib 3. COVID pneumonia. S/P Remdesivir treatment. EF 60%. 4. Uncontrolled diabetes. On insulin per Dr. Ochoa. Subjective Subjective In Covid isolation in NAD Objective Last 24 Hour Vital Signs Date Time Temp Pulse Resp B/P (MAP) Pulse Ox O2 Delivery O2 Flow Rate FiO2 11/13/19 08:00 98.1 73 18 99/60 (73) 97 11/13/19 04:00 98.2 72 20 102/63 (76) 98 11/13/19 00:00 97.5 70 18 112/70 (84) 98 11/12/19 21:00 Nasal Cannula 1.0 11/12/19 20:00 97.7 73 20 115/61 (79) 94 11/12/19 16:00 97.9 78 20 97/62 (74) 95 11/12/19 12:00 98.4 80 19 102/62 (75) 94 Intake and Output 11/12/19 11/13/19 19:00 07:00 Intake Total 1080 ml 500 ml Output Total 1200 ml 900 ml Balance -120 ml -400 ml Intake Oral 1080 ml 500 ml Output Urine Total 1200 ml 900 ml # Bowel Movements 1 Laboratory Tests Test 11/12/19 11:54 11/12/19 17:07 11/12/19 20:28 11/13/19 04:30 POC Whole Blood Glucose 181 MG/DL (74-106) H Pending Pending White Blood Count 8.1 K/UL (4.8-10.8) Red Blood Count 5.22 M/UL (4.70-6.10) Hemoglobin 14.7 G/DL (14.2-18.0) Hematocrit 45.2 % (42.0-52.0) Mean Corpuscular Volume 87 FL (80-99) Mean Corpuscular Hemoglobin 28.2 PG (27.0-31.0) Mean Corpuscular Hemoglobin Concent 32.6 G/DL (32.0-36.0) Red Cell Distribution Width 11.5 % (11.6-14.8) L Platelet Count 129 K/UL (150-450) L Mean Platelet Volume 7.4 FL (6.5-10.1) Neutrophils (%) (Auto) 72.2 % (45.0-75.0) Lymphocytes (%) (Auto) 15.8 % (20.0-45.0) L Monocytes (%) (Auto) 8.0 % (1.0-10.0) Eosinophils (%) (Auto) 3.6 % (0.0-3.0) H Basophils (%) (Auto) 0.4 % (0.0-2.0) Test 11/13/19 06:03 POC Whole Blood Glucose Pending Objective HEAD AND NECK: No JVD. LUNGS: Clear. CARDIOVASCULAR: Regular S1 and S2 with no gallop or murmur. ABDOMEN: Soft. EXTREMITIES: No pitting edema. Mohsen Epps MD Nov 13, 2019 10:37
[2019-11-13 12:00] VITALS: BP_SYST 125; BP_SYST 94; BP_DIAS 58; BP_DIAS 73
--- NOTE | 2019-11-13 12:20 | Infectious Diseases Prog Note ---
Assessment/Plan Assessment/Plan IMPRESSION: COVID-19 pneumonia, stable CXR Hypoxemia, improving Uncontrolled diabetes mellitus, Hyponatremia. RECOMMENDATION: Finished remdesivir Can be discharged Subjective ROS Limited/Unobtainable: Yes Constitutional: Reports: no symptoms, other - doing better Respiratory: Reports: productive cough Allergies: Coded Allergies: No Known Allergies (Unverified , 10/28/19) Objective Last 24 Hour Vital Signs Date Time Temp Pulse Resp B/P (MAP) Pulse Ox O2 Delivery O2 Flow Rate FiO2 11/13/19 08:00 98.1 73 18 99/60 (73) 97 11/13/19 04:00 98.2 72 20 102/63 (76) 98 11/13/19 00:00 97.5 70 18 112/70 (84) 98 11/12/19 21:00 Nasal Cannula 1.0 11/12/19 20:00 97.7 73 20 115/61 (79) 94 11/12/19 16:00 97.9 78 20 97/62 (74) 95 Height (Feet): 5 Height (Inches): 7.00 Weight (Pounds): 118 General Appearance: no acute distress HEENT: mucous membranes moist Respiratory/Chest: other - off of oxygen Cardiovascular: normal rate Abdomen: soft, non tender Extremities: no edema Neurologic/Psychiatric: alert, responsive Laboratory Tests Test 11/12/19 17:07 11/12/19 20:28 11/13/19 04:30 11/13/19 06:03 POC Whole Blood Glucose Pending Pending Pending White Blood Count 8.1 K/UL (4.8-10.8) Red Blood Count 5.22 M/UL (4.70-6.10) Hemoglobin 14.7 G/DL (14.2-18.0) Hematocrit 45.2 % (42.0-52.0) Mean Corpuscular Volume 87 FL (80-99) Mean Corpuscular Hemoglobin 28.2 PG (27.0-31.0) Mean Corpuscular Hemoglobin Concent 32.6 G/DL (32.0-36.0) Red Cell Distribution Width 11.5 % (11.6-14.8) L Platelet Count 129 K/UL (150-450) L Mean Platelet Volume 7.4 FL (6.5-10.1) Neutrophils (%) (Auto) 72.2 % (45.0-75.0) Lymphocytes (%) (Auto) 15.8 % (20.0-45.0) L Monocytes (%) (Auto) 8.0 % (1.0-10.0) Eosinophils (%) (Auto) 3.6 % (0.0-3.0) H Basophils (%) (Auto) 0.4 % (0.0-2.0) Test 11/13/19 11:59 POC Whole Blood Glucose 162 MG/DL (74-106) H Current Medications Medications (Trade) Dose Ordered Sig/Roman Route PRN Reason Start Time Stop Time Status Last Admin Dose Admin Acetaminophen (Tylenol) 500 mg Q4H PRN ORAL Mild Pain (Pain Scale 1-3) 11/06/19 10:05 12/06/19 10:04 11/08/19 16:48 Dextrose (Dextrose 50%) 25 ml Q30M PRN IV Hypoglycemia 11/06/19 10:30 01/31/20 08:29 Dextrose (Dextrose 50%) 50 ml Q30M PRN IV Hypoglycemia 11/06/19 10:30 01/31/20 08:29 Enoxaparin Sodium (Lovenox) 40 mg DAILY SUBQ 11/12/19 11:30 02/09/20 08:59 11/13/19 09:38 Insulin Aspart (NovoLOG) BEFORE MEALS AND HS SUBQ 11/06/19 11:30 01/28/20 16:29 11/12/19 20:30 Metformin HCl (Glucophage) 500 mg BID ORAL 11/11/19 09:00 12/11/19 08:59 11/13/19 09:38 Sitagliptin Phosphate (Januvia) 100 mg ACBREAKFAST ORAL 11/11/19 07:00 12/11/19 06:59 11/13/19 06:07 Stas Garcia MD Nov 13, 2019 12:20
--- NOTE | 2019-11-13 12:50 | NUR ---
NURSE NOTES: Patient saturating at 96 percent on room air.
--- NOTE | 2019-11-13 12:56 | Hematology/Onc Progress Note ---
Assessment/Plan Assessment/Plan Assessment and Recs # Lower extremity pain with swelling --> have ordered duplex lower extremity-->neg --> for now continue on anticoagulation ppx # Covid 19 pna --> sp remdesivir --> steriods prn --> per pulm recs # Hyperglycemia --> as per endo eval # Generalized weakness. --> likely covid19 related # Hypoxia --> due ot above, on 2 lcn # Dvt ppx lovenox The timing of this note does not necessarily reflect the time of the patient was seen. Greatly appreciate consultation. Subjective Constitutional: Denies: no symptoms, chills, fever, malaise, weakness, other HEENT: Denies: no symptoms, eye pain, blurred vision, tearing, double vision, ear pain, ear discharge, nose pain, nose congestion, throat pain, throat swelling, mouth pain, mouth swelling, other Cardiovascular: Denies: no symptoms, chest pain, edema, irregular heart rate, lightheadedness, palpitations, syncope, other Respiratory: Denies: no symptoms, cough, shortness of breath, SOB with excertion, SOB at rest, sputum, wheezing, other Gastrointestinal/Abdominal: Denies: no symptoms, abdomen distended, abdominal pain, black stools, tarry stools, blood in stool, constipated, diarrhea, difficulty swallowing, nausea, poor appetite, poor fluid intake, rectal bleeding , vomiting, other Genitourinary: Denies: no symptoms, burning, discharge, frequency, flank pain, hematuria, incontinence, pain, urgency, other Neurologic/Psychiatric: Denies: no symptoms, anxiety, depressed, emotional problems, headache, numbness, paresthesia, pre-existing deficit, seizure, tingling, tremors, weakness, other Endocrine: Denies: no symptoms, excessive sweating, flushing, intolerance to cold, intolerance to heat, increased hunger, increased thirst, increased urine, unexplained weight gain, unexplained weight loss, other Allergies: Coded Allergies: No Known Allergies (Unverified , 10/28/19) Subjective 11/10 no major changes, labs noted, no bleeding, for dc 11/11 labs noted, no bleeding 11/12 dw rn, feeling better, no complaints this am Objective Objective Current Medications Medications (Trade) Dose Ordered Sig/Roman Route PRN Reason Start Time Stop Time Status Last Admin Dose Admin Acetaminophen (Tylenol) 500 mg Q4H PRN ORAL Mild Pain (Pain Scale 1-3) 11/06/19 10:05 12/06/19 10:04 11/08/19 16:48 Dextrose (Dextrose 50%) 25 ml Q30M PRN IV Hypoglycemia 11/06/19 10:30 01/31/20 08:29 Dextrose (Dextrose 50%) 50 ml Q30M PRN IV Hypoglycemia 11/06/19 10:30 01/31/20 08:29 Enoxaparin Sodium (Lovenox) 40 mg DAILY SUBQ 11/12/19 11:30 02/09/20 08:59 11/13/19 09:38 Insulin Aspart (NovoLOG) BEFORE MEALS AND HS SUBQ 11/06/19 11:30 01/28/20 16:29 11/13/19 12:40 Metformin HCl (Glucophage) 500 mg BID ORAL 11/11/19 09:00 12/11/19 08:59 11/13/19 09:38 Sitagliptin Phosphate (Januvia) 100 mg ACBREAKFAST ORAL 11/11/19 07:00 12/11/19 06:59 11/13/19 06:07 Last 24 Hour Vital Signs Date Time Temp Pulse Resp B/P (MAP) Pulse Ox O2 Delivery O2 Flow Rate FiO2 11/13/19 08:00 98.1 73 18 99/60 (73) 97 11/13/19 04:00 98.2 72 20 102/63 (76) 98 11/13/19 00:00 97.5 70 18 112/70 (84) 98 11/12/19 21:00 Nasal Cannula 1.0 11/12/19 20:00 97.7 73 20 115/61 (79) 94 11/12/19 16:00 97.9 78 20 97/62 (74) 95 11/12/19 12:00 98.4 80 19 102/62 (75) 94 11/12/19 09:00 Nasal Cannula 1.0 11/12/19 08:00 98.2 78 18 97/59 (72) 94 11/12/19 04:00 98.1 65 20 104/61 (75) 95 11/12/19 00:00 98.2 67 20 100/60 (73) 94 11/11/19 21:00 Nasal Cannula 2.0 11/11/19 20:00 97.0 72 16 107/67 (80) 98 11/11/19 16:00 98.1 67 20 109/58 (75) 92 Intake and Output 11/12/19 11/13/19 19:00 07:00 Intake Total 1080 ml 500 ml Output Total 1200 ml 900 ml Balance -120 ml -400 ml Intake Oral 1080 ml 500 ml Output Urine Total 1200 ml 900 ml # Bowel Movements 1 Labs Test 11/10/19 16:53 11/10/19 21:42 11/11/19 05:53 11/11/19 06:30 POC Whole Blood Glucose 228 MG/DL (74-106) 230 MG/DL (74-106) 180 MG/DL (74-106) White Blood Count 7.5 K/UL (4.8-10.8) Red Blood Count 5.63 M/UL (4.70-6.10) Hemoglobin 15.7 G/DL (14.2-18.0) Hematocrit 49.1 % (42.0-52.0) Mean Corpuscular Volume 87 FL (80-99) Mean Corpuscular Hemoglobin 28.0 PG (27.0-31.0) Mean Corpuscular Hemoglobin Concent 32.1 G/DL (32.0-36.0) Red Cell Distribution Width 11.8 % (11.6-14.8) Platelet Count 128 K/UL (150-450) Mean Platelet Volume 7.6 FL (6.5-10.1) Neutrophils (%) (Auto) 71.8 % (45.0-75.0) Lymphocytes (%) (Auto) 17.8 % (20.0-45.0) Monocytes (%) (Auto) 7.0 % (1.0-10.0) Eosinophils (%) (Auto) 2.7 % (0.0-3.0) Basophils (%) (Auto) 0.7 % (0.0-2.0) Test 11/11/19 11:38 11/11/19 17:14 11/12/19 05:25 11/12/19 11:54 POC Whole Blood Glucose 199 MG/DL (74-106) 181 MG/DL (74-106) White Blood Count 8.3 K/UL (4.8-10.8) Red Blood Count 5.44 M/UL (4.70-6.10) Hemoglobin 15.2 G/DL (14.2-18.0) Hematocrit 47.4 % (42.0-52.0) Mean Corpuscular Volume 87 FL (80-99) Mean Corpuscular Hemoglobin 27.9 PG (27.0-31.0) Mean Corpuscular Hemoglobin Concent 32.0 G/DL (32.0-36.0) Red Cell Distribution Width 11.6 % (11.6-14.8) Platelet Count 137 K/UL (150-450) Mean Platelet Volume 9.0 FL (6.5-10.1) Neutrophils (%) (Auto) 70.7 % (45.0-75.0) Lymphocytes (%) (Auto) 17.0 % (20.0-45.0) Monocytes (%) (Auto) 8.1 % (1.0-10.0) Eosinophils (%) (Auto) 3.5 % (0.0-3.0) Basophils (%) (Auto) 0.7 % (0.0-2.0) Test 11/12/19 17:07 11/12/19 20:28 11/13/19 04:30 11/13/19 06:03 White Blood Count 8.1 K/UL (4.8-10.8) Red Blood Count 5.22 M/UL (4.70-6.10) Hemoglobin 14.7 G/DL (14.2-18.0) Hematocrit 45.2 % (42.0-52.0) Mean Corpuscular Volume 87 FL (80-99) Mean Corpuscular Hemoglobin 28.2 PG (27.0-31.0) Mean Corpuscular Hemoglobin Concent 32.6 G/DL (32.0-36.0) Red Cell Distribution Width 11.5 % (11.6-14.8) Platelet Count 129 K/UL (150-450) Mean Platelet Volume 7.4 FL (6.5-10.1) Neutrophils (%) (Auto) 72.2 % (45.0-75.0) Lymphocytes (%) (Auto) 15.8 % (20.0-45.0) Monocytes (%) (Auto) 8.0 % (1.0-10.0) Eosinophils (%) (Auto) 3.6 % (0.0-3.0) Basophils (%) (Auto) 0.4 % (0.0-2.0) Test 11/13/19 11:59 POC Whole Blood Glucose 162 MG/DL (74-106) Height (Feet): 5 Height (Inches): 7.00 Weight (Pounds): 118 Objective Physical Exam: Vitals: reviewed General: NAD HEENT: nc, at Neck: supple Chest: clear breath sounds bilaterally Cardiovascular: RRR, no s3, s4 Abdomen: soft, nontender, nd Extremities: no cce, normal range of motion Neuro: alert and oriented Roldan Tobin MD Nov 13, 2019 12:56
--- NOTE | 2019-11-13 14:22 | NUR ---
NURSE NOTES: Left message on voicemail of Dr. Aram Ochoa inquiring about discharge home medication for patient. Informed Dr. Nesha Damon that I was contacting Dr. Aram Ochoa for home medications.
[2019-11-13] MEDS ORDERED: METFORMIN HCL500 M3 ORAL (14:40)
[2019-11-13] MEDS ORDERED: JANUVIA100 MG ORAL (14:41)
--- NOTE | 2019-11-13 14:59 | NUR ---
CHARGE NURSE NOTE: SPOKE with Pharmacist (dianne aldana) - pt's copay for Januvia and Metformin $515. Pt's is not able to pay. notified.
[2019-11-13 16:00] VITALS: BP 97/54
--- NOTE | 2019-11-13 16:01 | NUR ---
SANDWICH HAND NOTE CM INFORMED BY OSMAR RODRIGUEZ PATIENT REPORTS NOT HAVING ANY ACTIVE MEDICAL INSURANCE. UNABLE TO PAY FOR RX OF $515. CM PROVIDED LIST OF OUTPATIENT FORMERLY [facility], [facility] IN WHICH PATIENT CAN FOLLOW UP WITH [facility].
--- NOTE | 2019-11-13 16:19 | General Progress Note ---
Assessment/Plan Assessment/Plan: (1) Acute respiratory disease due to COVID-19 virus (2) B/L LE pain d/o DVT Pt will be continued on Tylenol. D/w Dr. Quinones and he concurred. Subjective Date patient seen: Nov 13, 2019 Time patient seen: 03:30 - pm Allergies: Coded Allergies: No Known Allergies (Unverified , 10/28/19) Subjective Constitutional: Reports: weakness Eye: Reports: no symptoms ENT: Reports: no symptoms Respiratory: Reports: no symptoms Cardiovascular: Reports: no symptoms Gastrointestinal: Reports: no symptoms Genitourinary: Reports: no symptoms Musculoskeletal: Reports: no symptoms Skin: Reports: no symptoms Psychiatric: Reports: no symptoms Neurological: Reports: no symptoms Endocrine: Reports: no symptoms Hematologic/Lymphatic: Reports: no symptoms SUBJECTIVE: Patient resting in bed no signs of pain or distress. Objective Last 24 Hour Vital Signs Date Time Temp Pulse Resp B/P (MAP) Pulse Ox O2 Delivery O2 Flow Rate FiO2 11/13/19 12:00 98.3 75 18 94/58 (70) 94 11/13/19 09:00 Nasal Cannula 1.0 11/13/19 08:00 98.1 73 18 99/60 (73) 97 11/13/19 04:00 98.2 72 20 102/63 (76) 98 11/13/19 00:00 97.5 70 18 112/70 (84) 98 11/12/19 21:00 Nasal Cannula 1.0 11/12/19 20:00 97.7 73 20 115/61 (79) 94 Intake and Output 11/12/19 11/13/19 19:00 07:00 Intake Total 1080 ml 500 ml Output Total 1200 ml 900 ml Balance -120 ml -400 ml Intake Oral 1080 ml 500 ml Output Urine Total 1200 ml 900 ml # Bowel Movements 1 Laboratory Tests 11/12/19 17:07: POC Whole Blood Glucose [Pending] 11/12/19 20:28: POC Whole Blood Glucose [Pending] 11/13/19 04:30: White Blood Count 8.1, Red Blood Count 5.22, Hemoglobin 14.7, Hematocrit 45.2, Mean Corpuscular Volume 87, Mean Corpuscular Hemoglobin 28.2, Mean Corpuscular Hemoglobin Concent 32.6, Red Cell Distribution Width 11.5L, Platelet Count 129L , Mean Platelet Volume 7.4, Neutrophils (%) (Auto) 72.2, Lymphocytes (%) (Auto) 15.8L, Monocytes (%) (Auto) 8.0, Eosinophils (%) (Auto) 3.6H, Basophils (%) ( Auto) 0.4 11/13/19 06:03: POC Whole Blood Glucose [Pending] 11/13/19 11:59: POC Whole Blood Glucose 162H Height (Feet): 5 Height (Inches): 7.00 Weight (Pounds): 118 Ant Holloway Nov 13, 2019 16:19
--- NOTE | 2019-11-13 16:57 | NUR ---
NURSE NOTES: Patient discharged in stable condition with belongings.
== END 2019-11-13 16:57 | disposition home or self-care (01) | DRG 137 ==
LOC: EDBD 17:55 → EMR 19:30 → 2E 19:40 → EDBEDREQ 20:44 → 4E 11-06 10:03
DX: U07.1 COVID-19 (principal); J96.01 Acute respiratory failure with hypoxia; E43 Unspecified severe protein-calorie malnutrition; J12.89 Other viral pneumonia; E11.65 Type 2 diabetes mellitus with hyperglycemia; E87.1 Hypo-osmolality and hyponatremia; R00.1 Bradycardia, unspecified; Z68.1 Body mass index [BMI] 19.9 or less, adult; M79.605 Pain in left leg; M79.604 Pain in right leg; K21.9 Gastro-esophageal reflux disease without esophagitis
CPT/HCPCS: 36415; 36600; 71045; 80053; 80061; 80202; 82248; 82550; 82803; 82962; 83036; 83605; 83615; 83735; 83880; 84100; 84443; 84484; 84550; 85007; 85025; 85379; 85610; 85651; 85730; 86140; 87040; 87181; 93005; 93306; 96365; 96372; 96375; 99285; J1815; S5561; U0002